=== PATIENT | male | born 1960 | race Caucasian/White ===

== ENCOUNTER → 2020-05-27 09:58 | Outpatient (BNVA) | payer BC, SELFPAY | PROVIDERS: PCP Internal Medicine; Referring Provider Internal Medicine; Visit Provider Internal Medicine Cardiovascular Disease | DX: Z76.89 Persons encountering health services in other specified circumstances (principal) ==

== ENCOUNTER → 2020-08-30 11:29 | Outpatient (BNVA) | payer BC, SELFPAY | PROVIDERS: PCP Internal Medicine; Visit Provider Nurse Practitioner Family ==

== ENCOUNTER 2020-12-19 14:48 | Outpatient (REF) | payer BC, SELFPAY ==
[2020-12-20 04:57] LABS: Follicle Stimulating Hormone 10.9 mIU/mL (1.6-8.0); Lutenizing Hormone 6.3 mIU/mL (1.5-9.3); Prolactin 5.7 ng/mL (2.0-18.0)
[2020-12-20 05:42] LABS: Sex Hormone Binding Globulin 30 nmol/L (22-77)
[2020-12-23 21:37] LABS: Estradiol Ultra Sensitive 27 pg/mL (< OR = 29)
[2021-01-09 11:17] LABS: Testosterone, Total 261 ng/dL (250-1100)
== END 2020-12-19 14:49 | disposition home or self-care (01) ==
LOC: HO.LAB 14:48
PROVIDERS: PCP Internal Medicine; Visit Provider Urology
DX: E29.1 Testicular hypofunction (principal)
CPT/HCPCS: 36415; 82670; 83001; 83002; 84146; 84270; 84403

== ENCOUNTER 2021-01-20 07:45 | Outpatient (REF) | payer BC, SELFPAY ==
[2021-01-25 10:31] LABS: Testosterone, Free 75.5 pg/mL (35.0-155.0); Testosterone, Total 503 ng/dL (250-1100)
== END 2021-01-20 07:46 | disposition home or self-care (01) ==
LOC: HO.HMGCLDS 07:45
PROVIDERS: PCP Internal Medicine; Visit Provider Urology
DX: E29.1 Testicular hypofunction (principal)
CPT/HCPCS: 36415; 84402; 84403

== ENCOUNTER → 2021-01-31 15:27 | Outpatient (BNVA) | payer BC, SELFPAY | PROVIDERS: PCP Internal Medicine; Visit Provider Urology ==

== ENCOUNTER → 2021-02-14 14:27 | Outpatient (BNVA) | payer BC, SELFPAY | PROVIDERS: PCP Internal Medicine; Visit Provider Urology | DX: E29.1 Testicular hypofunction (principal) | CPT/HCPCS: 96372 ==

== ENCOUNTER 2021-02-28 14:40 | Outpatient (REF) | payer BC, SELFPAY ==
--- NOTE | ~2021-02-28 | XR_ITS ---
EXAMINATION: XR SHOULDER, LEFT CLINICAL INFORMATION: Left shoulder pain COMPARISON: None TECHNIQUE: Three views of the left shoulder. FINDINGS: There is no evidence of acute fracture or dislocation of the left shoulder. Amorphous calcification is seen about the location of the supraspinatus tendon as well as in the subacromial region consistent with acute calcific tendinitis and bursitis. There is some mild degenerative spurring about the glenohumeral joint. XR/XR shoulder LT min 2V IMPRESSION: Calcific tendinitis and bursitis of the left shoulder.
[2021-02-28 16:22] LABS: MANUAL DIFF FLAG NO
[2021-02-28 16:27] LABS: Basophils Percent Auto 0.4 % (0-2); Eosinophils Absolute Auto 0.2 X10*3/uL (0.0-0.4); Eosinophils Percent Auto 2.8 % (0-4); Hematocrit 43.9 % (42-52); Hemoglobin 14.7 g/dl (14.0-18.0); Imm Gran Abs Auto 0.11 X10*3/uL (0.00-0.03); Imm Gran Pct Auto 1.4 % (0.0-0.4); Lymphocytes Absolute Auto 2.4 X10*3/uL (1.2-4.9); Lymphocytes Percent Auto 30.9 % (20-40); Mean Corpuscular HGB Conc 33.5 g/dl (31.0-36.0); Mean Corpuscular Hemoglobin 28.9 pg (27.0-33.0); Mean Corpuscular Volume 86.2 fL (80-98); Mean Platelet Volume 11.4 fL (9.4-12.4); Monocytes Absolute Auto 0.8 X10*3/uL (0.1-1.2); Monocytes Percent Auto 9.5 % (2-11); Neutrophils Absolute Auto 4.3 X10*3/uL (2.0-8.3); Platelet Count 162 X10*3/uL (160-400); Red Blood Count 5.09 X10*6/uL (4.60-5.80); Red Cell Distribution Width 12.9 % (11.0-16.0); White Blood Count 7.9 X10*3/uL (4.8-10.8)
[2021-02-28 16:49] LABS: Alanine Aminotransferase 34 U/L (0-40); Albumin Level 4.4 g/dL (3.5-5.0); Alkaline Phosphatase 89 U/L (39-117); Anion Gap 13 (12-20); Aspartate Amino Transferase 24 U/L (5-37); Bilirubin Total 0.7 mg/dL (0.0-1.0); Blood Urea Nitrogen 27 mg/dL (9-16); Calcium 9.6 mg/dL (8.4-10.2); Carbon Dioxide 26 mmol/L (22-29); Chloride 106 mmol/L (96-108); Estimated Glomerular Filt Rate > 60; Glucose Random 104 mg/dL (60-115); Potassium 4.2 mmol/L (3.3-5.1); Sodium 141 mmol/L (135-145); Total Protein 7.2 g/dL (6.5-8.0)
[2021-03-01 20:25] LABS: LDL Cholesterol Direct 100 mg/dL (<100)
== END 2021-02-28 14:41 | disposition home or self-care (01) ==
LOC: HO.HMGCX 14:40
PROVIDERS: PCP Internal Medicine; Visit Provider Internal Medicine
DX: Z00.01 Encounter for general adult medical examination with abnormal findings (principal); E66.09 Other obesity due to excess calories; M25.512 Pain in left shoulder
CPT/HCPCS: 36415; 73030; 80053; 83721; 85025

== ENCOUNTER → 2021-03-20 10:23 | Outpatient (BNVA) | payer BC, SELFPAY | PROVIDERS: Visit Provider Physician Assistant | DX: M75.32 Calcific tendinitis of left shoulder (principal) | CPT/HCPCS: 20610; J1040 ==

== ENCOUNTER → 2021-04-23 12:16 | Outpatient (BNVA) | payer BC, SELFPAY | PROVIDERS: Referring Provider Internal Medicine; Visit Provider Internal Medicine Cardiovascular Disease | DX: Z01.810 Encounter for preprocedural cardiovascular examination (principal); I25.10 Atherosclerotic heart disease of native coronary artery without angina pectoris; I10 Essential (primary) hypertension | CPT/HCPCS: 93005 ==

== ENCOUNTER 2021-05-01 10:27 | Outpatient (REF) | payer BC, SELFPAY ==
--- NOTE | ~2021-05-01 | MR_ITS ---
EXAMINATION: MRI SHOULDER WITHOUT CONTRAST, LEFT CLINICAL INFORMATION: Injury of muscle. Patient reports left shoulder pain. COMPARISON: None. X-ray of the left shoulder 02/28/2021. TECHNIQUE: MRI of the left shoulder was performed on a high-field 1.5 [place] MRI scanner. FINDINGS: ROTATOR CUFF: Supraspinatus: There is heterogeneous abnormal signal along the bursal and intrasubstance portion of the anterior third of the supraspinatus tendon. There are areas of hypointense signal on T1 and T2 as well as areas of hypointense T1 and hyperintense T2-weighted sequence. There may be some concomitant cystic change present along this portion of the tendon accounting for the increased T2 signal. This extends from the musculotendinous junction to the distal insertion. This area corresponds to the area of calcific density noted on radiographs. Taken together these findings are compatible with calcific tendinitis perhaps with possible concomitant bursal-sided superficial tearing along the distal 1.5 cm of the tendon anteriorly. No transverse defect or tendon retraction. Minimal edema extending into the muscle. Remaining rotator cuff muscles and tendons are normal. BICEPS TENDON: Normal. 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 Minimal concavity of the undersurface of the acromion without subacromial spur. BURSA: Trace fluid in subacromial-subdeltoid bursa potentially with some areas of low signal indicative of calcium deposition in the bursa as well as the tendon compatible with mild bursitis bursitis. LABRUM/CAPSULE: Normal. GLENOHUMERAL JOINT: Normal. MR/MR shoulder LT wo con IMPRESSION: Abnormality of the supraspinatus compatible with calcific tendinitis perhaps with some concomitant small areas of partial bursal side tearing with resultant intratendinous cystic change. No full-thickness defect or tendon retraction. Mild subacromial-subdeltoid bursitis and calcific bursitis. Mild arthrosis of the acromioclavicular joint.
== END 2021-05-01 10:28 | disposition home or self-care (01) ==
LOC: HO.MRI 10:27
PROVIDERS: Visit Provider Physician Assistant
DX: S46.002A Unspecified injury of muscle(s) and tendon(s) of the rotator cuff of left shoulder, initial encounter (principal)
CPT/HCPCS: 73221

== ENCOUNTER → 2021-05-08 13:10 | Outpatient (BNVA) | payer BC, SELFPAY | PROVIDERS: PCP Internal Medicine; Visit Provider Physician Assistant ==

== ENCOUNTER 2021-06-30 09:00 | Outpatient (RCR) | payer BC, SELFPAY ==
[2021-06-02 09:01] VITALS: BP 155/90
--- NOTE | 2021-06-02 09:44 | MHC.PT.EP ---
[facility] [place] [facility] [place] [facility] [address] [place] [address] [phone] F: [phone] F: [phone] F: [phone] F: [phone] Physical Therapy Plan of Care Date of Evaluation: Date of Surgery: Diagnosis: calcific tendonitis L shoulder Assessment: 60 y/o RHD M referred to PT with L shoulder calcific tendonitis. His pain is improving however he continues to have pain and difficulty with reaching overhead and lifting. His job requires heavy lifting. Examination shows decreased L shoulder A/PROM (especially flexion/ abduction/ IR), decreased strength of scapular stabilizers, increased tissue tension of B pecs, and impaired postural awareness. Recommend PT 2x/week for 5 weeks to address impairments, implement HEP, and optimize functional mobility. He can only come 1x/week. Frequency and Duration: The patient will be seen 1x/week for 5 weeks Short Term Goals: 3 weeks 1. I with HEP 2. Improve L shoulder IR to 40 degrees Senior Care Goals: 5 weeks 1. I with HEP and self management of sx 2. Improve mid trap strength to 4/5 B to faciliate scapular control with overhead motion 3. Pt will be able to reach overhead without pain 5/5x Treatment Plan: Modalities to reduce pain, spasms and effusion. Manual therapy to restore motion and function. Therapeutic exercise to improve strength and flexibility. Neuromuscular re-education for posture and balance. Therapeutic activities to return to functional activities of daily living. Electronically signed by: Jennyfer Gayle PT Please sign and return to therapist. Thank you for your referral.
--- NOTE | 2021-08-08 07:37 | MHC.PT.DC ---
[facility] [place] [facility] [place] [facility] [place] [facility] [address] [place] [address] [phone] F: [phone] F: [phone] F: [phone] F: [phone] Physical Therapy Discharge Report Diagnosis: calcific tendonitis L shoulder Date of Surgery: Date of Evaluation: 06/02/21 Date of Discharge: 08/08/21 Treatments to Date: 5 Cancellations to Date: 0 No Shows to Date: 0 Discharge Status: Improved Function Independent with HEP Visit Non-compliance Discharge Summary: He did not f/u with final visit. At time of last visit Pt reports next visit will be his last visit and he would like recommendations on a gym. Discussed different gym memberships as well as HEP compliance. He states he does not do the exercises at home due to too busy. Re-educated pt on importance of corrective exercise program at home to make gains and redistributed bands. Less fatigue reported with ER today. Electronically signed by: Jennyfer Gayle PT Please sign and return to therapist. Thank you for your referral.
== END 2021-08-08 07:37 | disposition home or self-care (01) ==
LOC: HO.PTCHIC 09:00
PROVIDERS: PCP Internal Medicine; Visit Provider Physician Assistant
DX: M75.32 Calcific tendinitis of left shoulder (principal)
CPT/HCPCS: 97035; 97110; 97161

== ENCOUNTER 2021-08-11 07:57 | Outpatient (REF) | payer BC, SELFPAY ==
[2021-08-11 11:45] LABS: MANUAL DIFF FLAG NO
[2021-08-11 11:56] LABS: Basophils Percent Auto 0.4 % (0-2); Eosinophils Absolute Auto 0.1 X10*3/uL (0.0-0.4); Eosinophils Percent Auto 1.8 % (0-4); Hematocrit 53.6 % (42.0-52.0); Hemoglobin 17.1 g/dl (14.0-18.0); Imm Gran Abs Auto 0.03 X10*3/uL (0.00-0.03); Imm Gran Pct Auto 0.4 % (0.0-0.4); Lymphocytes Absolute Auto 1.7 X10*3/uL (1.2-4.9); Lymphocytes Percent Auto 24.2 % (20-40); Mean Corpuscular HGB Conc 31.9 g/dl (31.0-36.0); Mean Corpuscular Hemoglobin 27.1 pg (27.0-33.0); Mean Corpuscular Volume 85.1 fL (80.0-98.0); Mean Platelet Volume 11.7 fL (9.4-12.4); Monocytes Absolute Auto 0.6 X10*3/uL (0.1-1.2); Monocytes Percent Auto 8.4 % (2-11); Neutrophils Absolute Auto 4.6 x10*3/uL (2.0-8.3); Neutrophils Percent Auto 64.8 % (45-73); Platelet Count 186 X10*3/uL (160-400); Red Cell Distribution Width 13.9 % (11.0-16.0); White Blood Count 7.1 X10*3/uL (4.8-10.8)
[2021-08-11 12:20] LABS: Prostate Specific Antigen 3.22 ng/mL (<0.05-4.0)
[2021-08-15 11:47] LABS: Testosterone, Total 870 ng/dL (250-1100)
== END 2021-08-11 07:58 | disposition home or self-care (01) ==
LOC: HO.HMGCLDS 07:57
PROVIDERS: PCP Internal Medicine; Visit Provider Urology
DX: Z12.5 Encounter for screening for malignant neoplasm of prostate (principal); E29.1 Testicular hypofunction
CPT/HCPCS: 36415; 84153; 84403; 85025

== ENCOUNTER → 2021-08-22 10:19 | Outpatient (BNVA) | payer BC, SELFPAY | PROVIDERS: PCP Internal Medicine; Visit Provider Urology ==

== ENCOUNTER → 2021-09-03 09:18 | Outpatient (BNVA) | payer BC, SELFPAY | PROVIDERS: PCP Internal Medicine; Referring Provider Internal Medicine; Visit Provider Internal Medicine Cardiovascular Disease ==

== ENCOUNTER 2022-01-12 10:41 | Emergency (ER) | payer BC, SELFPAY ==
--- NOTE | 2022-01-12 | ECG_ITS ---
Test Reason : CHEST PAIN Blood Pressure : / mmHG Vent. Rate : 104 BPM Atrial Rate : 104 BPM P-R Int : 138 ms QRS Dur : 104 ms QT Int : 346 ms P-R-T Axes : 062 -34 076 degrees QTc Int : 454 ms Sinus tachycardia Left axis deviation Minimal voltage criteria for LVH, may be normal variant ( [place] product ) Nonspecific ST abnormality Abnormal ECG No previous ECGs available Referred By: Generic ED Physician Electronically Signed By:Capo Bautista
--- NOTE | ~2022-01-12 | XR_ITS ---
EXAMINATION: XR CHEST CLINICAL INFORMATION: Left-sided chest pain, shortness of breath COMPARISON: Chest and ribs 05/15/2019 TECHNIQUE: 2 views of the chest were obtained. FINDINGS: No pneumothorax, pleural reaction, or effusion. No hyperinflation. There is mild coarsening of the bronchiolar markings which may be related to bronchitis. There is no lobar or segmental airspace consolidation, or groundglass opacity. Costophrenic sulci are clear. The cardiopericardial silhouette is within limits of normal. Vascularity within normal. No visible acute bony abnormality. There are multilevel degenerative changes thoracic spine. XR/XR chest 2V IMPRESSION: -Mild coarsening bronchiolar markings which may be related to bronchitis. -No hyperinflation, airspace consolidation, or groundglass opacity. -Cardiopericardial silhouette is within limits of normal. Vascularity within normal.
[2022-01-12 10:44] VITALS: BP 164/99; PULSE 108; RESP 20; TEMP 36.7; O2SAT 97; BMI 34.9
[2022-01-12 11:00] LABS: MANUAL DIFF FLAG NO
[2022-01-12 11:02] LABS: Basophils Percent Auto 0.3 % (0-2); Eosinophils Absolute Auto 0.1 X10*3/uL (0.0-0.4); Eosinophils Percent Auto 1.3 % (0-4); Hemoglobin 16.4 g/dl (14.0-18.0); Imm Gran Abs Auto 0.09 X10*3/uL (0.00-0.03); Imm Gran Pct Auto 0.9 % (0.0-0.4); Lymphocytes Percent Auto 29.4 % (20-40); Mean Corpuscular HGB Conc 30.9 g/dl (31.0-36.0); Mean Corpuscular Hemoglobin 23.7 pg (27.0-33.0); Mean Corpuscular Volume 76.7 fL (80.0-98.0); Mean Platelet Volume 10.7 fL (9.4-12.4); Monocytes Absolute Auto 0.9 X10*3/uL (0.1-1.2); Monocytes Percent Auto 8.9 % (2-11); Neutrophils Absolute Auto 6.1 x10*3/uL (2.0-8.3); Neutrophils Percent Auto 59.2 % (45-73); Platelet Count 205 X10*3/uL (160-400); Red Blood Count 6.91 X10*6/uL (4.60-5.80); Red Cell Distribution Width 17.6 % (11.0-16.0); White Blood Count 10.2 X10*3/uL (4.8-10.8)
[2022-01-12 11:18] LABS: Alanine Aminotransferase 34 U/L (0-40); Albumin Level 4.5 g/dL (3.5-5.0); Alkaline Phosphatase 72 U/L (39-117); Anion Gap 12 (12-20); Aspartate Amino Transferase 33 U/L (5-37); Bilirubin Total 1.1 mg/dL (0.0-1.0); Blood Urea Nitrogen 26 mg/dL (9-16); COVID-19 Test Negative (Negative); Calcium 9.2 mg/dL (8.4-10.2); Carbon Dioxide 25 mmol/L (22-29); Chloride 106 mmol/L (96-108); Creatinine Clr Calc Pharmacy 74.4; Estimated Glomerular Filt Rate 59; Glucose Random 126 mg/dL (60-115); IDNOW Serial# 16C4AD1C; Potassium 3.9 mmol/L (3.3-5.1); Sodium 139 mmol/L (135-145); Total Protein 7.6 g/dL (6.5-8.0)
[2022-01-12 11:28] LABS: Troponin-I High Sensitivity 3.5 ng/L (<3.5-35.0)
[2022-01-12 12:21] VITALS: BP 131/71; PULSE 95
[2022-01-12] MEDS: Nitroglycerin 2 % Oint 1 GM Packet 0.5 INCH TRANSDERMA (12:21)
[2022-01-12] MEDS: Morphine Sulfate 4 MG/ML CARTRIDGE IVPUSH ×2 (12:21→15:57)
[2022-01-12 12:30] VITALS: BP 131/78; PULSE 100; RESP 20; TEMP 36.8; O2SAT 98
--- NOTE | 2022-01-12 12:31 | ED_ITS ---
HPI - Chest Pain General Chief Complaint: Chest Pain Stated Complaint: sob chest pain Time Seen by Provider: 01/12/22 11:36 Source: patient Mode of arrival: ambulatory Limitations: no limitations History of Present Illness HPI narrative: Patient presents emergency department for evaluation of chest pain. Reports t hat the chest pain began with very sudden onset about 15 minutes prior to arrival to the emergency department, difficult to describe but it was felt substernal radiating into his back, and pain felt in to his jaw line and beneath his tongue. Reports that this feels similar to a prior heart attack he has had in the past. Does report associated shortness of breath. He denies fevers, chills, dizziness, lightheadedness, headache, vision changes, neck pain, stiffness, dyspnea on exertion, nausea vomiting, abdominal pain weakness, numbness tingling of his extremities. MD complaint: chest pain and chest heaviness Pertinent past history: coronary artery disease, prior NM and [employer] Onset (ago): hour(s) Timing of current episode: constant Prior episodes: Yes Onset: during rest Pain location: substernal Pain radiation: back and jaw/teeth Severity: severe Pain scale (0-10): 9 Related Data Home Medications Medication Instructions Recorded Confirmed aspirin 81 mg tablet,delayed 81 mg PO DAILY 05/27/20 11/20/21 release (Adult Low Dose Aspirin) cholecalciferol (vitamin D3) 25 25 mcg PO DAILY 05/27/20 11/20/21 mcg (1,000 unit) capsule nitroglycerin 0.4 mg sublingual 0.4 mg sublingual Q5M PRN 05/27/20 11/20/21 tablet ibuprofen 600 mg tablet 400 mg PO Q6H PRN pain 09/03/21 11/20/21 Previous Rx's Medication Instructions Recorded atorvastatin 80 mg tablet 80 mg PO DAILY 30 days #30 tabs 12/20/20 clopidogrel 75 mg tablet 75 mg PO DAILY #90 tabs 03/11/21 metoprolol succinate 50 mg 50 mg PO DAILY 90 days #90 tabs 05/02/21 tablet,extended release 24 hr tadalafil 5 mg tablet 5 mg PO DAILY sexual activity 90 08/22/21 days #90 tabs testosterone cypionate 200 mg/mL 80 mg (0.4 mL) subcut QWEEK 4 08/22/21 intramuscular oil weeks #4 mL (Depo-Testosterone) cyclobenzaprine 10 mg tablet 10 mg PO BEDTIME #14 tabs 09/15/21 amoxicillin 875 mg-potassium 1 tab PO BID PRN ear infection 7 11/20/21 clavulanate 125 mg tablet days #14 tabs meloxicam 15 mg tablet 15 mg PO DAILY #14 tabs 12/16/21 trazodone 100 mg tablet 100 mg PO BEDTIME PRN sleep 90 12/16/21 days #14 tabs amlodipine 2.5 mg tablet 2.5 mg PO DAILY #90 tabs 12/30/21 Allergies Allergy/AdvReac Type Severity Reaction Status Date / Time No Known Allergies Allergy Verified 12/16/21 09:48 Review of Systems Review of Systems: Constitutional : No Weight loss, No Fever, No Chills ENT/Mouth :? No sore throat, No Rhinorrhea Eyes: No Eye Pain, No Swelling Cardiovascular : pos Chest Pain, pos SOB, no Dyspnea on Exertion, No Orthopnea, No Edema, No Palpitations Respiratory : No Cough, No Sputum Gastrointestinal : pos Nausea, No Vomiting, No Diarrhea, No abdominal Pain, No Hematochezia, No Melena Genitourinary : No Dysuria, No Urinary Frequency Musculoskeletal : No joint pain, No Myalgias, No Joint Swelling Skin : No Skin Lesions, No rash Neuro : No Weakness, No Numbness, No Dizziness, No Headache Psych : No Anxiety/Panic, No Depression Heme/Lymph: No Bruising, No Lymphadenopathy Endocrine : No Polyuria, No Polydipsia Yes all other systems are reviewed and are negative PMFSH Past Medical History Attestation statement: The following information was validated with the patient. Source: old records reviewed Medical History CAD (coronary artery disease) HLD (hyperlipidemia) HTN (hypertension) Low testosterone in male Surgical History Hx of cardiac cath Stented coronary artery (~05/2019) Family History Family History Mother Cancer Diabetes HTN (hypertension) Father HTN (hypertension) Social History Social History Housing: House Alcohol intake: never Patient Tobacco Use Status: Never used Tobacco Second Hand Smoke Exposure: Yes (as a child) Advance Directives: No Advance Directives Information Provided: No Current occupational status: employed Current occupation: [employer] Physical Exam Vital Signs: Vital Signs: Last Vital Signs Temp 98.6 F 01/12/22 17:26 Pulse 88 01/12/22 17:26 Resp 18 01/12/22 17:26 BP 129/77 01/12/22 17:26 Pulse Ox 94 01/12/22 17:26 O2 Del Method 01/12/22 17:26 BMI result Body Mass Index 37.0 Vital signs have been reviewed as normal and appeared to be correct. Blood pressure normal.? Heart rate normal.? Respiration rate normal. Temperature normal.? Oxygen saturation normal. Appearance: Alert.?Oriented to person, place and time. No acute distress.?Normal affect. Eyes: Pupils equal, round and reactive to light.? ENT: Pharynx normal.?? Neck: Normal inspection.? Neck supple.?? CVS: Heart sounds normal. Normal heart rate and rhythm.? Pulses normal, equal bilaterally? Respiratory: No respiratory distress.? Lung sounds clear to auscultation bilaterally?? Abdomen: Soft and non-tender. Normoactive bowel sounds. No pulsatile mass.?? Skin: Skin warm and dry.? Normal skin color.? No diaphoresis? Extremities: No lower extremity edema.? No calf ttp? Neuro: Moves all extremities spontaneously. Sensation intact bilaterally. CN II- XII intact. No focal neuro deficits. Ambulates with normal steady gait. Course Course Course Narrative: Patient is a 61-year-old male with a past medical history of depression, obesity, hyperlipidemia, hypertension, coronary artery disease with PCI of the RCA, PCI of left circumflex OM, and LAD being managed medically. He presents for acute onset of chest pain this morning while at rest. Patient states he is already taking Plavix and 324 aspirin. Given acute pain, treat with nitropaste 0.5 in, and morphine 4 mg IV. Will obtain CBC to evaluate for leukocytosis/ anemia, CMP to evaluate for abnormal electrolytes /abnormal renal function/ abnormal hepatic function, EKG and troponin to evaluate for ischemia/ACS. Chest x-ray to evaluate for consolidation/ infiltrate/ mass/ pulmonary con gestion. Reevaluation(s) Reevaluation #1: Initial labs are overall unremarkable. Troponin <3.5, EKG reveals sinus tachycardia, LVH, left axis deviation, 1mm ST elevation in III and aVF, ST depression leads V1-V5, but no prior EKGs available for review, will obtain delta troponin. Time: 12:30 Reevaluation #2: Pain is currently 5/10, reports in improvement but still present. Delta troponin pending at this time. Will order additional morphine 4 mg IV for pain management. Chest x-ray with findings consistent with the possible mild bronchitis come patient however with no recent upper respiratory symptoms cough, or congestion. Time: 13:37 Reevaluation #3: Critical troponin, 2189.1, continues to have chest pain 4/10 at this time, feeling hot, mildly diaphoretic. Repeat EKG shows new T-wave inversions in inferior leads, ST depression of of anterior leads and ST elevation of inferior leads has resolved. Consulted with Cardiology Dr. Bautista recommends heparin drip,nitro, and additional plavix 300mg at this time, discussed findings with patient, plan for possible transfer to [facility] Time: 15:17 Additional Reevaluation(s): 1550: Spoke with Cardiology Dr. Bautista, given persistent active chest pain, patient to be started on a nitro drip at 33 mcg at this time, planning for transfer to [facility] critical care unit, accepting physician Dr. Morales. The patient had earlier stated he had not taken Tadalafil in a few days. When asked again at this time, he reports that he did take it this morning with his morning medications. Concern for concomitant use with nitro. Discussed this with Dr. Bautista, who now advises against nitro drip at this time. 1650: Difficulty obtaining ACLS transfer to [facility] at this time. Working to coordinate transfer. Metoprolol 2.5 mg IV being administered for heart rate greater than 70. Chest pain has almost completely resolved, sti ll remains present but very subtle, reporting 2/10 midline upper back pain MDM - Chest Pain Medical Records Data Attestation: I reviewed the patient's medical records. Lab Data Attestation: I reviewed the patient's lab results. Result diagrams: 01/12/22 10:56 01/12/22 10:56 Labs: Lab Results 07/18/22 07/18/22 07/18/22 Range/Units 10:56 10:56 10:56 WBC 10.2 (4.8-10.8) X10*3/uL RBC 6.91 H (4.60-5.80) X10*6/uL Hgb 16.4 (14.0-18.0) g/dl Hct 53.0 H (42.0-52.0) % MCV 76.7 L (80.0-98.0) fL MCH 23.7 L (27.0-33.0) pg MCHC 30.9 L (31.0-36.0) g/dl RDW 17.6 H (11.0-16.0) % Plt Count 205 (160-400) X10*3/uL MPV 10.7 (9.4-12.4) fL Immature Gran % (Auto) 0.9 H (0.0-0.4) % Neut % (Auto) 59.2 (45-73) % Lymph % (Auto) 29.4 (20-40) % [place] % (Auto) 8.9 (2-11) % Eos % (Auto) 1.3 (0-4) % Baso % (Auto) 0.3 (0-2) % Lymph # (Auto) 3.0 (1.2-4.9) X10*3/uL [place] # (Auto) 0.9 (0.1-1.2) X10*3/uL Eos # (Auto) 0.1 (0.0-0.4) X10*3/uL Baso # (Auto) 0.0 (0.0-0.2) X10*3/uL Abs Immat Gran (auto) 0.09 H (0.00-0.03) X10*3/uL Absolute Neuts (auto) 6.1 (2.0-8.3) x10*3/uL Absolute Nucleated RBC 0.000 (0.0-0.012) X10*3/uL Nucleated RBC % (auto) 0.0 (0.0-0.2) /100WBC APTT (24.1-38.0) SEC Sodium 139 (135-145) mmol/L Potassium 3.9 (3.3-5.1) mmol/L Chloride 106 (96-108) mmol/L Carbon Dioxide 25 (22-29) mmol/L Anion Gap 12 (12-20) BUN 26 H (9-16) mg/dL Creatinine 1.25 (0.5-1.4) mg/dL Estim Creat Clear Calc 74.4 Estimated GFR 59 Random Glucose 126 H (60-115) mg/dL Calcium 9.2 (8.4-10.2) mg/dL Total Bilirubin 1.1 H (0.0-1.0) mg/dL AST 33 (5-37) U/L ALT 34 (0-40) U/L Alkaline Phosphatase 72 (39-117) U/L Troponin I High Sens 3.5 (<3.5-35.0) ng/L Total Protein 7.6 (6.5-8.0) g/dL Albumin 4.5 (3.5-5.0) g/dL COVID-19 (BEBE) (Negative) COVID-19 Clin Com 01/12/22 01/12/22 01/12/22 Range/Units 10:56 14:44 15:56 WBC (4.8-10.8) X10*3/uL RBC (4.60-5.80) X10*6/uL Hgb (14.0-18.0) g/dl Hct (42.0-52.0) % MCV (80.0-98.0) fL MCH (27.0-33.0) pg MCHC (31.0-36.0) g/dl RDW (11.0-16.0) % Plt Count (160-400) X10*3/uL MPV (9.4-12.4) fL Immature Gran % (Auto) (0.0-0.4) % Neut % (Auto) (45-73) % Lymph % (Auto) (20-40) % [place] % (Auto) (2-11) % Eos % (Auto) (0-4) % Baso % (Auto) (0-2) % Lymph # (Auto) (1.2-4.9) X10*3/uL [place] # (Auto) (0.1-1.2) X10*3/uL Eos # (Auto) (0.0-0.4) X10*3/uL Baso # (Auto) (0.0-0.2) X10*3/uL Abs Immat Gran (auto) (0.00-0.03) X10*3/uL Absolute Neuts (auto) (2.0-8.3) x10*3/uL Absolute Nucleated RBC (0.0-0.012) X10*3/uL Nucleated RBC % (auto) (0.0-0.2) /100WBC APTT 35.1 (24.1-38.0) SEC Sodium (135-145) mmol/L Potassium (3.3-5.1) mmol/L Chloride (96-108) mmol/L Carbon Dioxide (22-29) mmol/L Anion Gap (12-20) BUN (9-16) mg/dL Creatinine (0.5-1.4) mg/dL Estim Creat Clear Calc Estimated GFR Random Glucose (60-115) mg/dL Calcium (8.4-10.2) mg/dL Total Bilirubin (0.0-1.0) mg/dL AST (5-37) U/L ALT (0-40) U/L Alkaline Phosphatase (39-117) U/L Troponin I High Sens 2189.1 H* D (<3.5-35.0) ng/L Total Protein (6.5-8.0) g/dL Albumin (3.5-5.0) g/dL COVID-19 (BEBE) Negative (Negative) COVID-19 Clin Com See Note Imaging Data Chest x-ray: Radiologist's impression: XR/XR chest 2V IMPRESSION: -Mild coarsening bronchiolar markings which may be related to bronchitis. -No hyperinflation, airspace consolidation, or groundglass opacity. -Cardiopericardial silhouette is within limits of normal. Vascularity within normal. ECG Data ECG #1: Attestation: I personally reviewed and interpreted this ECG as follows: ECG interpretation date: 01/12/22 Prior ECG tracings: not available for review Interpretation: Rate: Sinus tachycardia Rhythm:? 104 Normal P waves.? Normal HARRIET.?? Normal QRS complex.?? ST T wave :??1mm ST elevation in III, and aVF, ST depression V1-V5 qTC: 454 prior studies:? None available for review The study has been interpreted contemporaneously by me. Discharge Plan Discharge Clinical Impression: Acute non-ST elevation myocardial infarction (NSTEMI) Patient Disposition: Xfer [facility] Transfer Details: [facility], critical care unit Prescriptions: No Action atorvastatin 80 mg tablet 80 mg PO DAILY 30 Days Qty: 30 1RF clopidogrel 75 mg tablet 75 mg PO DAILY Qty: 90 3RF metoprolol succinate 50 mg tablet extended release 24 hr 50 mg PO DAILY 90 Days Qty: 90 3RF amlodipine 2.5 mg tablet 2.5 mg PO DAILY Qty: 90 1RF cyclobenzaprine 10 mg tablet 10 mg PO BEDTIME Qty: 14 0RF amoxicillin-pot clavulanate 875-125 mg tablet 1 tab PO BID PRN (Reason: ear infection) 7 Days Qty: 14 0RF trazodone 100 mg tablet 100 mg PO BEDTIME PRN (Reason: sleep) 90 Days Qty: 14 0RF meloxicam 15 mg tablet 15 mg PO DAILY Qty: 14 0RF nitroglycerin 0.4 mg tablet, sublingual 0.4 mg sublingual Q5M PRN Rx Instructions: do not exceed 3 doses per episode aspirin [Adult Low Dose Aspirin] 81 mg tablet,delayed release (DR/EC) 81 mg PO DAILY cholecalciferol (vitamin D3) 25 mcg (1,000 unit) capsule 25 mcg PO DAILY tadalafil 5 mg tablet 5 mg PO DAILY 90 Days Qty: 90 1RF testosterone cypionate [Depo-Testosterone] 200 mg/mL oil 80 mg subcut QWEEK 28 Days Qty: 4 5RF ibuprofen 600 mg tablet 400 mg PO Q6H PRN (Reason: pain)
--- NOTE | 2022-01-12 12:35 | PC.NURSE ---
patient A/o x4 . pearrla . skin pink warm and dry . heart rate regular at 100 -102 beats . c/o 10/10 chest pressure pain that started while patient was reaching up shaving this morning . reports history of cardiac bypass surgery done . abdomin soft non tender . positive bowel sounds in all quadrants . IV placed in left forearm and medicated as ordered . patient aware of plan of care .
[2022-01-12 14:29] VITALS: BP 134/76; PULSE 90; RESP 20; TEMP 36.7; O2SAT 96
--- NOTE | 2022-01-12 15:23 | ECG_ITS ---
Test Reason : repeat Blood Pressure : / mmHG Vent. Rate : 088 BPM Atrial Rate : 088 BPM P-R Int : 138 ms QRS Dur : 110 ms QT Int : 372 ms P-R-T Axes : 060 -45 -43 degrees QTc Int : 450 ms Normal sinus rhythm Left anterior fascicular block Minimal voltage criteria for LVH, may be normal variant ( [place] product ) Cannot rule out Inferior infarct , age undetermined Abnormal ECG When compared with ECG of 12-JAN-2022 10:37, ST no longer elevated in Inferior leads ST no longer depressed in Anterior leads T wave inversion now evident in Inferior leads Nonspecific T wave abnormality, worse in Lateral leads Referred By: Alyse Hanley Electronically Signed By:Capo Bautista
[2022-01-12 15:45] VITALS: BMI 37.0
--- NOTE | 2022-01-12 16:03 | PC.NURSE ---
@ 1600 CALL ECEIVED FROM [facility] PT TX LINE WITH ROOM ASSIGNMENT MASS MUTUAL 3, ROOM 9 RN TO RN: [phone] MICHELL RAJAN
[2022-01-12 16:10] LABS: Partial Thromboplastin Time 35.1 SEC (24.1-38.0)
[2022-01-12] MEDS: Heparin Sodium,Porcine 5,000 UNIT/ML VIAL 4000 UNIT IVPUSH (16:20)
[2022-01-12] MEDS: Heparin Sodium,Porcine/1/2NS 25,000 UNIT/250 ML IV.SOLN 15.46 UNIT IVCONT (16:21)
[2022-01-12] MEDS: Metoprolol Tartrate 5 MG/5 ML VIAL 2.5 MG IVPUSH (17:02)
[2022-01-12 17:26] VITALS: BP 129/77; PULSE 88; RESP 18; TEMP 37; O2SAT 94
--- NOTE | 2022-01-12 18:20 | PC.NURSE ---
RN to RN given to Eli at [facility] .
== END 2022-01-12 19:20 | disposition short-term general hospital (02) ==
PROVIDERS: Nurse Practitioner Family; Emergency Provider Emergency Medicine; PCP Internal Medicine
DX: I21.4 Non-ST elevation (NSTEMI) myocardial infarction (principal); R07.89 Other chest pain; R06.02 Shortness of breath; Z20.822 Contact with and (suspected) exposure to COVID-19; Z79.899 Other long term (current) drug therapy
CPT/HCPCS: 36415; 71046; 80053; 84484; 85025; 85730; 87635; 93005; 96365; 96366; 96375; 96376; 99285; J2270

== ENCOUNTER → 2022-02-06 14:48 | Outpatient (REF) | payer BC, SELFPAY ==
--- NOTE | 2022-02-06 14:51 | CA_ITS ---
Transthoracic Echocardiogram Patient (Last, First, Middle): Cory Lopez A Gender: Male Date of : 1960 Age: 61 Procedure Date: 02/06/2022 Procedure Type: Transthoracic Echocardiogram Location: OP Height: 175.26 cm Weight: 106.14 kg BSA: 2.21 m2 Heart Rate: 76 bpm BP: 117 / 62 mmHg Supervisor Estimator And Drafter: SB Referring MD: Wendy Aragon [facility] Symptoms: I42.9 - Cardiomyopathy, unspecified Study Quality: Adequate ECG Rhythm: Sinus Conclusions: - The left ventricular systolic function is low normal. The visually estimated ejection fraction is between 50-55%. - There is evidence of regional wall motion abnormalities. - There is moderately decreased right ventricular systolic function. Findings Left Ventricle Mildly increased left ventricular cavity size. There is mildly increased left ventricular wall thickness. The left ventricular systolic function is low normal. The visually estimated ejection fraction is between 50-55%. There is evidence of regional wall motion abnormalities. Diastolic function is normal for age. LV peak GLS -14.6%. Wall Motion Rest Echo Findings The inferolateral wall is hypokinetic. The basal inferior segment is akinetic. Right Ventricle Mildly increased right ventricular cavity size. There is moderately decreased right ventricular systolic function. Prior Study Comparison Changes noted compared to prior study dated: 05/09/2019. Evidence of wall motion abnormalities. Measurements 2D Linear Measurements IVSd: 1.11 0.6-0.9/0.6-1.0 cm LVIDd: 5.89 3.9-5.3/4.2-5.9 cm LVIDd Index: 2.67 2.4-3.2/2.2-3.1 cm/m2 LVIDs: 4.30 2.0-3.6 cm LVPWd: 1.03 0.7-1.1 cm LV Mass: 325.98 67-162/88-224 g LV Mass Index: 147.50 43-95/49-115 g/m2 LVOT Diam: 2.10 3.0+(-)1.3 cm 2D Systolic Function EF 4C: 48.90 >55% EF 2C: 57.60 >55% EF BiP: 55.20 >55% Mitral Valve MV Pk E: 0.76 MV PK A: 0.73 MV Decel Time: 158.00 E/A: 1.00 E'Lateral: 11.40 E'Medial: 3.98 E/E' Med: 19.10 E/E' Lat: 6.70 PHT: 46.00 MVA PHT: 4.78 Decel [place]ay: 4.81 LVOT LVOT Pk Emerson: 1.15 LVOT Mn Emerson: 0.82 LVOT VTI: 0.21 LVOT Pk Grad: 5.00 LVOT Mn Grad: 3.00 LVOT Diam: 2.10 LVOT Area: 3.46 Diastolic Function MV Pk E: 0.76 MV Pk A: 0.73 E/A: 1.00 E'Medial: 3.98 E/E' Med: 19.10 E' Laterial: 11.40 E/E' Lat: 6.70 Right Ventricle TAPSE (mm): 12.20 TVS' Emerson: 11.50 Tricuspid Valve RA Press: 3.00 Updated in Other Vendor System with Status of Final Rex Aragon MD electronically signed on 02/07/2022 1:23:43 PM with status of Final
== END ==
LOC: HO.CARD 14:48
PROVIDERS: PCP Internal Medicine; Visit Provider Nurse Practitioner Family
DX: I42.9 Cardiomyopathy, unspecified (principal); I21.4 Non-ST elevation (NSTEMI) myocardial infarction
CPT/HCPCS: 93308; 93356

== ENCOUNTER 2022-03-03 08:30 | Outpatient (REF) | payer BC, SELFPAY ==
[2022-03-03 11:35] LABS: Hemoglobin 17.4 g/dl (14.0-18.0); Mean Corpuscular HGB Conc 30.9 g/dl (31.0-36.0); Mean Corpuscular Hemoglobin 24.1 pg (27.0-33.0); Mean Corpuscular Volume 78.2 fL (80.0-98.0); Mean Platelet Volume 11.8 fL (9.4-12.4); Platelet Count 181 X10*3/uL (160-400); Red Blood Count 7.21 X10*6/uL (4.60-5.80); Red Cell Distribution Width 18.3 % (11.0-16.0); White Blood Count 8.4 X10*3/uL (4.8-10.8)
[2022-03-03 11:38] LABS: Hematocrit 56.4 % (42.0-52.0)
[2022-03-03 12:15] LABS: Prostate Specific Antigen 1.97 ng/mL (<0.05-4.0)
[2022-03-07 13:47] LABS: Testosterone, Total 755 ng/dL (250-1100)
== END 2022-03-03 08:31 | disposition home or self-care (01) ==
LOC: HO.HMGCLDS 08:30
PROVIDERS: PCP Internal Medicine; Visit Provider Urology
DX: Z12.5 Encounter for screening for malignant neoplasm of prostate (principal); E29.1 Testicular hypofunction
CPT/HCPCS: 36415; 84153; 84403; 85027

== ENCOUNTER → 2022-05-25 08:50 | Outpatient (REF) | payer BC, SELFPAY ==
--- NOTE | 2022-05-25 08:53 | CA_ITS ---
Acquisition Time: 2022-05-25 09:05:05 Total Exercise Time: 00:09:00 Test Indications: SOB Medications: SEE CHART Protocol: SYLVIE Max HR: 139 BPM 86% of Pred: 161 BPM Max BP: 152/092 mmHG Max Work Load: 10.1 METS Exercise stress test with exercise 9 min of Sylvie protocol, reaching 85% MPHR, with mild sob, no chest discomfort, with isolated PACs and PVCs, with normotensive response to exercise, without EKG changes meeting criteria for ischemia. Test reviewed with Dr Bautista Referred By: Wendy Aragon Overread By: WENDY ARAGON
== END ==
LOC: HO.CARD 08:50
PROVIDERS: PCP Internal Medicine; Visit Provider Nurse Practitioner Family
DX: I25.10 Atherosclerotic heart disease of native coronary artery without angina pectoris (principal); R53.83 Other fatigue; I42.9 Cardiomyopathy, unspecified
CPT/HCPCS: 93017

== ENCOUNTER 2022-06-09 08:38 | Outpatient (REF) | payer BC, SELFPAY ==
[2022-06-09 12:24] LABS: Hematocrit 55.8 % (42.0-52.0)
[2022-06-15 13:38] LABS: Testosterone, Total 626 ng/dL (250-1100)
== END 2022-06-09 08:39 | disposition home or self-care (01) ==
LOC: HO.HMGCLDS 08:38
PROVIDERS: Visit Provider Urology
DX: E29.1 Testicular hypofunction (principal)
CPT/HCPCS: 36415; 84403; 85014

== ENCOUNTER 2022-06-15 17:08 | Outpatient (REF) | payer BC, SELFPAY ==
[2022-06-15 17:59] LABS: Influenza A PCR NEGATIVE (Negative); Influenza B PCR NEGATIVE (Negative); Resp Syncy Virus RNA Qual PCR NEGATIVE (Negative); SARS COV2 PCR INHOUSE NEGATIVE (Negative)
== END 2022-06-15 17:09 | disposition home or self-care (01) ==
LOC: HO.LNP 17:08
PROVIDERS: Visit Provider Nurse Practitioner Family
DX: Z20.822 Contact with and (suspected) exposure to COVID-19 (principal); R09.89 Other specified symptoms and signs involving the circulatory and respiratory systems
CPT/HCPCS: 0241U

== ENCOUNTER → 2022-06-19 11:16 | Outpatient (BNVA) | payer BC, SELFPAY | PROVIDERS: PCP Internal Medicine; Visit Provider Urology | DX: E29.1 Testicular hypofunction (principal) ==

== ENCOUNTER → 2022-07-13 09:26 | Outpatient (BNVA) | payer BC, SELFPAY | PROVIDERS: PCP Internal Medicine; Referring Provider Internal Medicine; Visit Provider Internal Medicine Cardiovascular Disease | DX: Z13.89 Encounter for screening for other disorder (principal) ==

== ENCOUNTER 2022-07-21 08:35 | Outpatient (REF) | payer BC, SELFPAY ==
[2022-07-21 11:40] LABS: MANUAL DIFF FLAG NO
[2022-07-21 11:57] LABS: Basophils Percent Auto 0.5 % (0-2); Eosinophils Absolute Auto 0.3 X10*3/uL (0.0-0.4); Eosinophils Percent Auto 4.3 % (0-4); Hematocrit 54.3 % (42.0-52.0); Hemoglobin 18.1 g/dl (14.0-18.0); Imm Gran Abs Auto 0.05 X10*3/uL (0.00-0.03); Imm Gran Pct Auto 0.6 % (0.0-0.4); Lymphocytes Absolute Auto 2.1 X10*3/uL (1.2-4.9); Lymphocytes Percent Auto 26.9 % (20-40); Mean Corpuscular HGB Conc 33.3 g/dl (31.0-36.0); Mean Corpuscular Hemoglobin 28.2 pg (27.0-33.0); Mean Corpuscular Volume 84.7 fL (80.0-98.0); Mean Platelet Volume 11.8 fL (9.4-12.4); Monocytes Absolute Auto 0.5 X10*3/uL (0.1-1.2); Monocytes Percent Auto 6.8 % (2-11); Neutrophils Absolute Auto 4.9 x10*3/uL (2.0-8.3); Neutrophils Percent Auto 60.9 % (45-73); Platelet Count 149 X10*3/uL (160-400); Red Blood Count 6.41 X10*6/uL (4.60-5.80); Red Cell Distribution Width 15.9 % (11.0-16.0)
[2022-07-21 12:36] LABS: Alanine Aminotransferase 39 U/L (0-40); Albumin Level 4.5 g/dL (3.5-5.0); Alkaline Phosphatase 65 U/L (39-117); Anion Gap 14 (12-20); Aspartate Amino Transferase 25 U/L (5-37); Bilirubin Total 4.4 mg/dL (0.0-1.0); Blood Urea Nitrogen 20 mg/dL (9-16); Calcium 9.3 mg/dL (8.4-10.2); Carbon Dioxide 28 mmol/L (22-29); Chloride 104 mmol/L (96-108); Cholesterol 123 mg/dL; Estimated Glomerular Filt Rate > 60; Glucose Fasting 100 mg/dL (60-99); HDL Cholesterol 39 mg/dL; LDL Cholesterol Calculated 63 mg/dl; Potassium 4.2 mmol/L (3.3-5.1); Sodium 142 mmol/L (135-145); TSH reflex Free T4 0.88 uIU/mL (0.32-4.0); Total Protein 7.2 g/dL (6.5-8.0); Triglycerides 108 mg/dL
[2022-07-21 12:38] LABS: B Type Natriuretic Peptide 59 pg/mL (<100)
== END 2022-07-21 08:36 | disposition home or self-care (01) ==
LOC: HO.HMGCLDS 08:35
PROVIDERS: Absent Provider Internal Medicine Cardiovascular Disease; PCP Internal Medicine; Visit Provider Internal Medicine
DX: Z00.01 Encounter for general adult medical examination with abnormal findings (principal); I42.9 Cardiomyopathy, unspecified; J02.9 Acute pharyngitis, unspecified; R53.83 Other fatigue
CPT/HCPCS: 36415; 80053; 80061; 83880; 84443; 85025

== ENCOUNTER → 2022-11-27 10:29 | Outpatient (BNVA) | payer BC, SELFPAY ==
[2022-09-10 13:00] VITALS: BP 126/74; BP 136/88
[2022-11-04 11:48] VITALS: BP 104/70; BMI 35.6
== END ==
PROVIDERS: PCP Internal Medicine; Referring Provider Internal Medicine; Visit Provider Internal Medicine Cardiovascular Disease
DX: I20.8 Other forms of angina pectoris (principal); I10 Essential (primary) hypertension; E78.5 Hyperlipidemia, unspecified
CPT/HCPCS: 93005

== ENCOUNTER 2023-01-05 06:43 | Outpatient (REF) | payer BC, SELFPAY ==
[2022-09-10 13:00] VITALS: BP 126/74; BP 136/88
[2022-11-30 10:01] VITALS: BP 102/74; BMI 35.6
[2023-01-05 11:34] LABS: Hematocrit 51.5 % (42.0-52.0); Hemoglobin 17.2 g/dl (14.0-18.0); Mean Corpuscular HGB Conc 33.4 g/dl (31.0-36.0); Mean Corpuscular Hemoglobin 28.5 pg (27.0-33.0); Mean Corpuscular Volume 85.4 fL (80.0-98.0); Mean Platelet Volume 12.2 fL (9.4-12.4); Platelet Count 144 X10*3/uL (160-400); Red Blood Count 6.03 X10*6/uL (4.60-5.80); Red Cell Distribution Width 12.7 % (11.0-16.0); White Blood Count 6.4 X10*3/uL (4.8-10.8)
[2023-01-05 12:04] LABS: Prostate Specific Antigen 1.67 ng/mL (<0.05-4.0)
[2023-01-10 16:13] LABS: Testosterone, Total 219 ng/dL (250-1100)
== END 2023-01-05 06:44 | disposition home or self-care (01) ==
LOC: HO.HMGCLDS 06:43
PROVIDERS: PCP Internal Medicine; Visit Provider Urology
DX: Z12.5 Encounter for screening for malignant neoplasm of prostate (principal); E29.1 Testicular hypofunction
CPT/HCPCS: 36415; 84153; 84403; 85027

== ENCOUNTER → 2023-01-13 09:32 | Outpatient (BNVA) | payer BC, SELFPAY ==
[2022-09-10 13:00] VITALS: BP 126/74; BP 136/88
[2022-11-30 10:01] VITALS: BP 102/74; BMI 35.6
== END ==
PROVIDERS: PCP Internal Medicine; Visit Provider Internal Medicine Cardiovascular Disease

== ENCOUNTER 2023-01-14 09:46 | Outpatient (AMB) | payer BC, SELFPAY ==
[2022-09-10 13:00] VITALS: BP 126/74; BP 136/88
[2022-11-30 10:01] VITALS: BP 102/74; BMI 35.6
--- NOTE | 2023-01-14 11:35 | A.OFFVIS_ITS ---
Intake Intake Visit Reasons: 6M CBC/PSA/Testo(pending) Allergies niacin Allergy (Unknown, Verified 01/13/23 10:00) high doses - cause lip swelling, blurred vision Penicillins Adverse Reaction (Severe, Verified 01/13/23 10:00) Diarrhea HPI HPI Comments History of Present Illness Details Cory is a very pleasant male. He is a patient of Dr. Ramírez. He is here for the following urologic conditions - hypogonadism Telemedicine Evaluation 15 min Consultation [employer] Inessa Video attempted Had ceased Testosterone secondary to not interested in intercourse Recommend to restart testosterone since it has been shown to have positive benefit in men with cardiac failure, depression, diabetes Unable to take tadalafil secondary to cardiac issues Prescription provided Six month follow-up Hypogonadism Symptomatic decline in libido Decreased strength Lack of energy Injection day Wednesday Lab work T 12/16 195, 08/19 T 870 P 3.2 H 53.6, 03/19 755 1.9 56, 06/18 T 626 H 55.8, 01/17 T 219 1.7 51.5 Had altered dosage secondary to increasing hematocrit Associated comorbidities include cardiovascular disease - prior [place] and revascularization, diabetes - 01/15 T 500 - other baseline labs - FSH 10.9 - suggestive of testicular decreased hormone sensitivity Erectile dysfunction Unable to take PDE use since on isosorbide PFSH Medical History CAD (coronary artery disease) HLD (hyperlipidemia) HTN (hypertension) Low testosterone in male Surgical History Hx of cardiac cath Stented coronary artery (~05/2019) Family History Mother Cancer Diabetes HTN (hypertension) Father HTN (hypertension) Social History Housing: House Alcohol intake: never Patient Tobacco Use Status: Never used Tobacco e-Cigarette/Vaping Use: Never Used Second Hand Smoke Exposure: Yes (as a child) Current occupational status: employed Current occupation: [employer] Cognitive needs: No Hearing needs: No Vision needs: Yes Review of Systems Const All systems reviewed & are unremarkable except as noted in HPI and below Reports no additional complaints Resp Reports no additional complaints GI Reports no additional complaints Reports as per HPI Musc Reports no additional complaints Physical Exam Telemedicine evaluation Appropriate responses Regular breathing rate and rhythm HEENT Head: Yes normal to inspection Ears: hearing grossly normal bilaterally Eyes General: appearance normal, both eyes and all related structures Neck Neck: Yes normal visual inspection Chest Chest palpation & inspection: normal inspection of the chest Resp Effort & Inspection: normal respiratory effort and able to speak in complete sentences Assessment & Plan Assessment & Plan (1) Erectile dysfunction associated with type 2 diabetes mellitus: Code(s): E11.69 - Type 2 diabetes mellitus with other specified complication; N52.1 - Erectile dysfunction due to diseases classified elsewhere (2) Hypogonadism in male: Code(s): E29.1 - Testicular hypofunction Plan Six month follow-up Orders: Orders Prostate Specific Antigen 6 Months R7. - Other specified abnormal findings of blood chemistry Testosterone, Total 6 Months R7. - Other specified abnormal findings of blood chemistry Complete Blood Count no Diff 6 Months R7 - Other specified abnormal findings of blood chemistry Medications: Changed From testosterone cypionate (Depo-Testosterone) 100 mg IM Q4W E29.1 - Testicular hypofunction To testosterone cypionate (Depo-Testosterone) 80 mg (0.4 mL) IM QWEEK 2 mL 5RF 28 days E29.1 - Testicular hypofunction Patient Instructions: Imaging studies, laboratory and physical exam results were discussed and reviewed in detail. No major barriers to patient understanding were identified. An opportunity to ask questions regarding the treatment plan was provided. All questions were answered. The patient expressed understanding and agreement with the above treatment plan. The patient is aware they should contact our office by phone for worsening of their current condition or the appearance of new urologic symptoms. Compliance is encouraged with any medications and followup testing that is ordered. It is a privilege to participate in the urologic care of your patient. If you have any questions or concerns regarding treatment for the above conditions, or other urologic issues, please do not hesitate to contact me. The office telephone contact is [phone]. This note is constructed using voice recognition software. While every effort has been made to ensure accuracy vocational education professional errors may have been included. Yours sincerely, Dr Min Singh MD, [facility] - Urology Providers of Expert, Compassionate Care for the Genitourinary System Telehealth Telehealth Location of provider rendering services: practice address Location of patient: address on file Patient Identification confirmed using: Name, : Yes Telehealth method: video Patient verbally consented to treatment: Yes Patient verbally consented to billing insurance company: Yes Patient informed of any privacy concerns related to visit: Yes Coding Level of Care Code Tele Est Pt Level 4 (40549) Diagnoses Erectile dysfunction associated with type 2 diabetes mellitus E11.69; N52.1 Hypogonadism in male E29.1
== END 2023-01-14 11:47 | disposition home or self-care (01) ==
LOC: HO.HUSH 09:46
PROVIDERS: PCP Internal Medicine; Visit Provider Urology
DX: E11.69 Type 2 diabetes mellitus with other specified complication (principal); N52.1 Erectile dysfunction due to diseases classified elsewhere; E29.1 Testicular hypofunction
CPT/HCPCS: 99214

== ENCOUNTER → 2023-01-14 09:46 | Outpatient (BNVA) | payer BC, SELFPAY ==
[2022-09-10 13:00] VITALS: BP 126/74; BP 136/88
[2022-11-30 10:01] VITALS: BP 102/74; BMI 35.6
== END ==
PROVIDERS: PCP Internal Medicine; Visit Provider Urology

== ENCOUNTER 2023-03-15 12:52 | Outpatient (AMB) | payer BC, SELFPAY ==
[2022-09-10 13:00] VITALS: BP 126/74; BP 136/88
[2023-03-15 12:51] VITALS: BP 114/78; BMI 36.1
--- NOTE | 2023-03-15 13:22 | MHC.OFFWIV ---
Intake Vital Signs 03/15/23 13:31 Height 5 ft 9 in Weight 249 lb BMI 36.8 BP 128/76 Blood Pressure Location Lt brachial Position Sitting Pulse 88 Pulse Source Pulse Oximeter Pulse Oximetry (%) 96 Oxygen Delivery Method Room Air Intake Visit Reasons: EST/dizziness/bp issues? Intake Note: Patient is here today for dizziness/light head, been occurring for 5 days. Patient Tobacco Use Status: Never used Tobacco Allergies niacin Allergy (Unknown, Verified 03/15/23 13:31) high doses - cause lip swelling, blurred vision Penicillins Adverse Reaction (Severe, Verified 03/15/23 13:31) Diarrhea Do you need a note to return to daycare/school/sports/work: Yes HPI EST/dizziness/bp issues? HPI Details 62-year-old male presents to the office for a sick visit. For the past 5 days patient complains that his dizziness symptoms have worsened. He is able to walk and dry without any difficulty. No nausea or vomiting. He is taking meclizine up to 3 times a day. He also has history of chronic tinnitus. [facility] Medical History CAD (coronary artery disease) HLD (hyperlipidemia) HTN (hypertension) Low testosterone in male Surgical History Hx of cardiac cath Stented coronary artery (~05/2019) Family History Mother Cancer Diabetes HTN (hypertension) Father HTN (hypertension) Social History Housing: House Alcohol intake: never Patient Tobacco Use Status: Never used Tobacco e-Cigarette/Vaping Use: Never Used Second Hand Smoke Exposure: Yes (as a child) Current occupational status: employed Current occupation: [employer] Cognitive needs: No Hearing needs: No Vision needs: Yes Physical Exam Vital Signs: Last Vital Signs Pulse 88 03/15/23 13:31 BP 128/76 03/15/23 13:31 Pulse Ox 96 03/15/23 13:31 Oxygen Delivery Method Room Air 03/15/23 13:31 BMI result Body Mass Index 36.8 Const General: cooperative and healthy appearing Nutritional Appearance: well nourished Orientation/consciousness: patient oriented x3 Limitations: no limitations HEENT Head: Yes normal to inspection Eyes General: appearance normal, both eyes and all related structures Neck Neck: Yes normal visual inspection Chest Chest palpation & inspection: normal palpation of entire chest wall Resp Effort & Inspection: normal respiratory effort Neuro General: patient oriented x3 Assessment & Plan Assessment & Plan (1) Dizziness: Code(s): R42 - Dizziness and giddiness Plan: Antibiotics added to the regimen. Blood work has been added. Patient receives monthly testosterone. His hemoglobin was increasing. Will call with the results on his CBC. Orders: Orders Basic Metabolic Panel Today R42 - Dizziness and giddiness Erythrocyte Sedimentation Rate Today R42 - Dizziness and giddiness Complete Blood Count no Diff Today R42 - Dizziness and giddiness Coding Level of Care Code Est Pt Level 4 (21881) Diagnoses Dizziness R42
[2023-03-15 13:31] VITALS: BP 128/76; PULSE 88; O2SAT 96; BMI 36.8
== END 2023-03-15 13:52 | disposition home or self-care (01) ==
PROVIDERS: PCP Internal Medicine; Visit Provider Internal Medicine
DX: R42 Dizziness and giddiness (principal)
CPT/HCPCS: 99214

== ENCOUNTER 2023-03-15 13:53 | Outpatient (REF) | payer BC, SELFPAY ==
[2022-09-10 13:00] VITALS: BP 126/74; BP 136/88
[2023-03-15 12:51] VITALS: BP 114/78; BMI 36.1
[2023-03-15 16:08] LABS: Hemoglobin 18.7 g/dl (14.0-18.0); Mean Corpuscular HGB Conc 31.9 g/dl (31.0-36.0); Mean Corpuscular Volume 93.9 fL (80.0-98.0); Mean Platelet Volume 12.1 fL (9.4-12.4); Platelet Count 171 X10*3/uL (160-400); Red Blood Count 6.24 X10*6/uL (4.60-5.80); Red Cell Distribution Width 13.5 % (11.0-16.0); White Blood Count 14.2 X10*3/uL (4.8-10.8)
[2023-03-15 16:14] LABS: Hematocrit 58.6 % (42.0-52.0)
[2023-03-15 16:18] LABS: Anion Gap 11 (12-20); Blood Urea Nitrogen 18 mg/dL (9-16); Carbon Dioxide 27 mmol/L (22-29); Chloride 105 mmol/L (96-108); Estimated Glomerular Filt Rate 57; Glucose Random 120 mg/dL (60-115); Sodium 139 mmol/L (135-145)
[2023-03-15 17:25] LABS: Erythrocyte Sedimentation Rate 1 MM/HR (0-15)
== END 2023-03-15 13:54 | disposition home or self-care (01) ==
LOC: HO.HMGCLDS 13:53
PROVIDERS: PCP Internal Medicine; Visit Provider Internal Medicine
DX: R42 Dizziness and giddiness (principal)
CPT/HCPCS: 36415; 80048; 85027; 85652

== ENCOUNTER 2023-03-17 09:58 | Outpatient (AMB) | payer BC, SELFPAY ==
[2023-03-17 09:17] VITALS: BP 114/78; BP 126/74; BP 136/88; BMI 36.1
[2023-03-17 10:00] VITALS: BP 134/100; PULSE 88; TEMP 36.8; O2SAT 96; BMI 36.0
--- NOTE | 2023-03-17 10:00 | MHC.PC.OV ---
Vital Signs 03/17/23 10:00 Height 5 ft 9 in Weight 243 lb 8 oz BMI 36.0 BP 134/100 H Blood Pressure Location Rt brachial Position Sitting Pulse 88 Pulse Source Pulse Oximeter Temp 98.2 F Temp Source Oral Pulse Oximetry (%) 96 Oxygen Delivery Method Room Air Intake Visit Reasons: follow up Dizziness Allergies niacin Allergy (Unknown, Verified 03/17/23 10:04) high doses - cause lip swelling, blurred vision Penicillins Adverse Reaction (Severe, Verified 03/17/23 10:04) Diarrhea Medication List - Last Reconciled 03/17/23 by Isamra Ramírez MD azithromycin take 500 mg today (day 1), then 250 mg for 4 days (days 2-5) PO cholecalciferol (vitamin D3) 25 mcg PO DAILY clopidogrel 75 mg PO DAILY isosorbide mononitrate ER 30 mg PO DAILY meclizine 50 mg PO BID 15 days metoprolol succinate ER 50 mg PO DAILY prednisone 20 mg PO DAILY 5 days sacubitril-valsartan 24-26 mg (Entresto) 1 tab PO BID 90 days testosterone cypionate (Depo-Testosterone) 80 mg (0.4 mL) IM QWEEK 28 days Tobacco use date assessed: 03/17/23 Dental Screening Dental Screen Date: 03/17/23 Did you have a dental visit in the last 12 months?: Yes Did you have a dental problem in the last 6 months where you did not have access to dental care?: No Was dental information given to patient?: Patient has dentist HPI follow up Dizziness HPI Details Patient is 62-year-old gentleman came in today to be evaluated for severe dizziness for the past 3 days Patient says that he has seen another provider and was prescribed antibiotic that he is taking azithromycin and have 3 more days to go. On examination both of his ear canals are erythematous, upon further questioning patient notified me that he had to use Q-tips regularly And he uses earplugs at night because he has autistic child at home was creams at night. Advice patient to stop using the ear plugs which is causing inflammation in the ear canal He is to continue with antibiotic and finish that and also stop using Q-tips. I have sent prednisone 20 mg 1 tablet daily with food for 5 days And meclizine 50 mg b.i.d. And medication for nausea. Note given to be off work till Wednesday. There is no fever no chills no shortness of breath no sore throat no headache PFSH Medical History Low testosterone in male HLD (hyperlipidemia) HTN (hypertension) CAD (coronary artery disease) Surgical History Hx of cardiac cath Stented coronary artery (~05/2019) Family History Mother Cancer Diabetes HTN (hypertension) Father HTN (hypertension) Social History Housing: House Alcohol intake: never Patient Tobacco Use Status: Never used Tobacco e-Cigarette/Vaping Use: Never Used Second Hand Smoke Exposure: Yes (as a child) Current occupational status: employed Current occupation: [employer] Cognitive needs: No Hearing needs: No Vision needs: Yes Questionnaire PHQ-9 Over the last 2 weeks, how often have you been bothered by any of the following problems? 1. Little interest or pleasure in doing things: not at all 2. Feeling down, depressed, or hopeless: not at all 3. Trouble falling or staying asleep, or sleeping too much: not at all 4. Feeling tired or having little energy: nearly every day 5. Poor appetite or overeating: not at all 6. Feeling bad about yourself - or that you are a failure or have let yourself or your family down: not at all 7. Trouble concentrating on things, such as reading the newspaper or watching television: not at all 8. Moving or speaking so slowly that other people could have noticed. Or the opposite - being so fidgety or restless that you have been moving around a lot more than usual: not at all 9. Thoughts that you would be better off or of hurting yourself in some way: not at all Total score: 3 Depression Screening Interpretation: Negative 19798 - PHQ-9 Billing: Yes Source: Developed by Drs. Reza Obrien, Geena Carlos, Kristopher Kahn and colleagues, with an educational yodit from [employer]. Thrive Questionnaire Date Thrive assessed: 05/26/22 AUDIT C Alcohol Use Questionnaire (AUDIT-C) 1. How often do you have a drink containing alcohol?: Never 3. How often do you have six or more drinks on one occasion?: Never Total Score: 0 Score Reviewed/Action Taken: Yes MIGUEL-7 AMB Questionnaire MIGUEL-7 Date MIGUEL - 7 assessed: 05/26/22 Source: Developed by Drs. Reza Obrien, Geena Carlos, Kristopher Kahn and colleagues, with an educational yodit from [employer]. Review of Systems Const Denies chills and Denies fever(s) ENT Denies epistaxis and Denies nasal discharge Card Denies chest pain Resp Denies chest congestion, Denies cough and Denies hemoptysis GI Denies diarrhea and Denies nausea Skin/Breast Denies rash Neuro Reports no additional complaints Psych Reports no additional complaints Endo Reports no additional complaints Physical exam (Primary Care) Vital Signs: Last Vital Signs Temp 98.2 F 03/17/23 10:00 Pulse 88 03/17/23 10:00 BP 134/100 H 03/17/23 10:00 Pulse Ox 96 03/17/23 10:00 Oxygen Delivery Method Room Air 03/17/23 10:00 BMI result Body Mass Index 36.0 Tobacco/Smoking Status: Tobacco use Status Tobacco use date assessed 03/17/23 03/17/23 10:04 Patient Tobacco Use Status Never used Tobacco 03/17/23 10:04 e-Cigarette/Vaping Use Never Used 03/17/23 10:04 Depression Screening Interpretation: Negative Thrive Assessment: Date of Thrive Assessment Date Thrive assessed 05/26/22 03/17/23 10:04 Const General: cooperative, comfortable and no acute distress Orientation/consciousness: patient oriented x3 [facility] Head: Yes normocephalic Eyes General: appearance normal, both eyes and all related structures Neck Neck: Yes supple Resp Effort & Inspection: normal respiratory effort, no cough and no stridor Cardio Rhythm: regular rhythm Heart sounds: S1 normal heart sound present and S2 normal heart sound present Skin General skin exam: turgor normal Neuro General: patient oriented x3, tone normal and moves all extremities Extrem Right lower extremity: no edema Left lower extremity: no edema Assessment and Plan Assessment & Plan (1) Benign positional vertigo: Code(s): H81.10 - Benign paroxysmal vertigo, unspecified ear Qualifiers: Laterality: bilateral Qualified Code(s): H81.13 - Benign paroxysmal vertigo, bilateral (2) Ear infection: Code(s): H66.90 - Otitis media, unspecified, unspecified ear (3) Nausea: Code(s): R11.0 - Nausea Plan Patient is 62-year-old gentleman came in today to be evaluated for severe dizziness for the past 3 days Patient says that he has seen another provider and was prescribed antibiotic that he is taking azithromycin and have 3 more days to go. On examination both of his ear canals are erythematous, upon further questioning patient notified me that he had to use Q-tips regularly And he uses earplugs at night because he has autistic child at home was creams at night. Advice patient to stop using the ear plugs which is causing inflammation in the ear canal He is to continue with antibiotic and finish that and also stop using Q-tips. I have sent prednisone 20 mg 1 tablet daily with food for 5 days And meclizine 50 mg b.i.d. And medication for nausea. Note given to be off work till Wednesday. There is no fever no chills no shortness of breath no sore throat no headache Medications: New meclizine 50 mg PO BID 30 tabs 0RF dizziness 15 days prednisone 20 mg PO DAILY 5 tabs 0RF 5 days ondansetron HCl 4 mg PO Q8H PRN 14 tabs 0RF nausea and vomiting 7 days R11.0 - Nausea Coding Level of Care Code Est Pt Level 3 (15522) Diagnoses Benign paroxysmal positional vertigo due to bilateral vestibular disorder H81.13 Laterality: bilateral Ear infection H66.90 Nausea R11.0
== END 2023-03-17 12:06 | disposition home or self-care (01) ==
LOC: HO.HMGC 09:58
PROVIDERS: PCP Internal Medicine; Visit Provider Internal Medicine
DX: H81.13 Benign paroxysmal vertigo, bilateral (principal); H66.90 Otitis media, unspecified, unspecified ear; R11.0 Nausea
CPT/HCPCS: 99213

== ENCOUNTER 2023-05-26 09:25 | Outpatient (AMB) | payer BC, SELFPAY ==
[2023-05-26 09:35] VITALS: BP 130/80; PULSE 72; BMI 35.5
--- NOTE | 2023-05-26 09:35 | A.OFFVIS_ITS ---
Intake Vital Signs 05/26/23 09:35 Height 5 ft 9 in Weight 240 lb 4.862 oz BMI 35.5 BP 130/80 Blood Pressure Location Lt brachial Position Sitting Pulse 72 Pulse Source Pulse Oximeter Intake Visit Reasons: 3 month follow up Intake Note: 3 month follow up/ patient feel good. 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 Accompanied by: Self / Same As Patient Allergies niacin Allergy (Unknown, Verified 05/26/23 09:37) high doses - cause lip swelling, blurred vision Penicillins Adverse Reaction (Severe, Verified 05/26/23 09:37) Diarrhea Medication List - Last Reconciled 05/26/23 by Capo Bautista MD aspirin (Adult Aspirin Regimen) 81 mg PO DAILY atorvastatin 40 mg PO DAILY azithromycin take 500 mg today (day 1), then 250 mg for 4 days (days 2-5) PO cholecalciferol (vitamin D3) 25 mcg PO DAILY clopidogrel 75 mg PO DAILY isosorbide mononitrate ER 30 mg PO DAILY meclizine 50 mg (2 x 25 mg) PO BID 15 days metoprolol succinate ER 50 mg PO DAILY sacubitril-valsartan 24-26 mg (Entresto) 1 tab PO BID testosterone cypionate (Depo-Testosterone) 80 mg (0.4 mL) IM QWEEK 28 days HPI HPI Comments History of Present Illness Details 62 years old gentleman was referred for history of coronary artery disease and dyspnea. In 2007 he presented with syncope and had an abnormal stress test. He was taken for cardiac catheterization by Dr. 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 He had successful SPRAY OPERATOR PCI by Dr. Nicho simms. He followed up with him and then stopped following up. He was referred for exercise stress test which showed inferior perfusion defect. This led to cardiac catheterization showing three-vessel disease including an IFR positive LAD, distal RCA severe stenosis and chronic total occlusion of the left circumflex with [id number] collaterals. After discussion with him was taken back for multivessel PCI and underwent PCI of the right coronary artery as well as SPRAY OPERATOR PCI the left circumflex OM. The LAD was decided to medically manage. He was put in cardiac rehab and has been doing well there. In the interim he got admitted to [facility] with NSTEMI and was noticed to have occluded right coronary artery with [id number] collaterals. Ejection fraction was dropped in the moderate range at that time. He was asymptomatic at the time of catheterization and was at least 48 hours into the event and we decided to medically treat him. He was started on guideline directed medical therapy for cardiomyopathy. He had a limited echo which showed EF improvement to 50 55% with basal inferior wall akinesis and inferolateral wall hypokinesis. He has been doing well with medical management at this stage. He is returning for follow-up today. He said he had some headache, left-sided reproducible chest pain and palpitations. He said he stopped taking aspirin and atorvastatin and few days later his symptoms improved. He has not been taking aspirin atorvastatin since then. He is taking rest of his medications otherwise. He has known chest discomfort shortness of breath currently. 05/26/23: He returns for follow-up. He has been doing well. No chest discomfort shortness of breath. 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 He did cardiac rehabilitation but after finishing he has not been exercising. I have advised him to start exercising again. Last visit he told us that he was having some or chest pains and he stopped taking aspirin and he was advised restarted. He has been taking aspirin along with Plavix at this stage. Blood pressure control is good. Tolerating medications well. [facility] Medical History Low testosterone in male HLD (hyperlipidemia) HTN (hypertension) CAD (coronary artery disease) Surgical History Hx of cardiac cath Stented coronary artery (~05/2019) Family History Mother Cancer Diabetes HTN (hypertension) Father HTN (hypertension) Social History Housing: House Alcohol intake: never Patient Tobacco Use Status: Never used Tobacco e-Cigarette/Vaping Use: Never Used Second Hand Smoke Exposure: Yes (as a child) Current occupational status: employed Current occupation: [employer] Cognitive needs: No Hearing needs: No Vision needs: Yes Review of Systems Const Denies chills, Denies fatigue, Denies fever(s), Denies frequent falls, Denies weakness, Denies weight gain and Denies weight loss ENT Denies dizziness Card Denies chest pain, Denies leg edema, Denies lightheadedness, Denies palpitations, Denies dyspnea, Denies dyspnea on exertion, Denies orthopnea and Denies other (loss of consciousness) Resp Denies cough, Denies dyspnea and Denies dyspnea on exertion GI Denies hematochezia and Denies change in stool character Musc Denies abnormal gait, Denies muscle weakness, Denies numbness, Denies radiating pain into limb and Denies tingling Neuro Denies abnormal gait, Denies dizziness, Denies frequent falls, Denies numbness, Denies tingling and Denies weakness Endo Denies fatigue and Denies palpitations Physical Exam Vital Signs: Last Vital Signs Pulse 72 05/26/23 09:35 BP 130/80 05/26/23 09:35 BMI result Body Mass Index 35.5 GENERAL APPEARANCE: in no acute distress, pleasant. NECK: no carotid bruit, no jugular venous distention. SKIN: no suspicious lesions, warm and dry. HEART: no murmurs, regular rate and rhythm. LUNGS: clear to auscultation bilaterally. ABDOMEN: soft, nontender. EXTREMITIES: no edema. PERIPHERAL PULSES: equal. NEUROLOGIC: No gross deficits, AAO X 3 Assessment & Plan Assessment & Plan (1) HTN (hypertension): Code(s): I10 - Essential (primary) hypertension (2) CAD (coronary artery disease): Code(s): I25.10 - Atherosclerotic heart disease of [place] coronary artery without angina pectoris (3) Stable angina: Code(s): I20.8 - Other forms of angina pectoris Plan Pleasant 62-year-old gentleman who is here for follow-up. History of coronary artery disease and currently has stable angina. He has low normal ejection fraction based on echocardiography. Taking medications regularly. He is on aspirin and Plavix at this point. Blood pressure control is good. I have advised him to start increasing his physical activity. He will follow-up with us in 3 months. Thank you for allowing me to participate in the care of your patient. Please feel free to contact me if you have any questions. Coding Level of Care Code Est Pt Level 4 (35224) Diagnoses HTN (hypertension) I10 CAD (coronary artery disease) I25.10 Stable angina I20.8
== END 2023-05-26 09:54 | disposition home or self-care (01) ==
PROVIDERS: PCP Internal Medicine; Visit Provider Internal Medicine Cardiovascular Disease
DX: I25.118 Atherosclerotic heart disease of native coronary artery with other forms of angina pectoris (principal); I10 Essential (primary) hypertension
CPT/HCPCS: 99213

== ENCOUNTER → 2023-05-26 09:25 | Outpatient (BNVA) | payer BC, SELFPAY | PROVIDERS: PCP Internal Medicine; Visit Provider Internal Medicine Cardiovascular Disease ==

== ENCOUNTER 2023-05-27 08:37 | Outpatient (AMB) | payer BC, SELFPAY ==
[2023-05-27 08:58] VITALS: BP 120/76; PULSE 60; TEMP 36.2; O2SAT 97; BMI 35.9
--- NOTE | 2023-05-27 08:58 | MHC.OFFWIV ---
Intake Vital Signs 05/27/23 08:58 Height 5 ft 9 in Weight 243 lb BMI 35.9 BP 120/76 Blood Pressure Location Rt brachial Position Sitting Pulse 60 Pulse Source Pulse Oximeter Temp 97.2 F Temp Source Temporal Artery Scan Pulse Oximetry (%) 97 Oxygen Delivery Method Room Air Intake Visit Reasons: EP, right shoulder pain Intake Note: pt is here for c.o right shoulder pain 5x days, denies injury Patient Tobacco Use Status: Never used Tobacco Allergies niacin Allergy (Unknown, Verified 05/27/23 09:02) high doses - cause lip swelling, blurred vision Penicillins Adverse Reaction (Severe, Verified 05/27/23 09:02) Diarrhea Do you need a note to return to daycare/school/sports/work: Yes HPI HPI Comments History of Present Illness Details This is a 62-year-old xckuk-[id number] male with a past medical history of hypertension and coronary artery disease presenting for evaluation of right shoulder pain that has been evolving over the past 7 days. Patient states he was lifting a heavy object weighing approximately 125 lb the day after Thanksgiving to hang and he experienced the pain two days after. Patient has taken a single dose of ibuprofen 400 mg without relief is discomfort. Patient denies having any neck pain or right forearm pain. 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 [facility]LY [facility] Medical History Low testosterone in male HLD (hyperlipidemia) HTN (hypertension) CAD (coronary artery disease) Surgical History Hx of cardiac cath Stented coronary artery (~05/2019) Family History Mother Cancer Diabetes HTN (hypertension) Father HTN (hypertension) Social History Housing: House Alcohol intake: never Patient Tobacco Use Status: Never used Tobacco e-Cigarette/Vaping Use: Never Used Second Hand Smoke Exposure: Yes (as a child) Current occupational status: employed Current occupation: [employer] Cognitive needs: No Hearing needs: No Vision needs: Yes Review of Systems Const All systems reviewed & are unremarkable except as noted in HPI and below Reports as per HPI Musc Details: R. anterior shoulder pain. Reports no additional complaints and Reports as per HPI Physical Exam Vital Signs: Last Vital Signs Temp 97.2 F 05/27/23 08:58 Pulse 60 05/27/23 08:58 BP 120/76 05/27/23 08:58 Pulse Ox 97 05/27/23 08:58 Oxygen Delivery Method Room Air 05/27/23 08:58 BMI result Body Mass Index 35.9 Const General: cooperative, healthy appearing, comfortable, no acute distress and well developed; No ill appearing Nutritional Appearance: average body habitus Orientation/consciousness: patient oriented x3 Limitations: no limitations Cardio Rate: regular rate Rhythm: regular rhythm Skin General skin exam: no rashes or lesions noted Neuro General: patient oriented x3 Extrem Right upper extremity: normal to inspection and shoulder/upper arm Details: normal to inspection, tenderness (anterior right shoulder; no right clavicular tenderness, no crepitus) and abnormal ROM; no swelling, no crepitus, no deformity and no unusual warmth; ROM limited (R. shoulder limited ROM secondary to pain.) Assessment & Plan Assessment & Plan (1) Right shoulder strain: Code(s): S46.911A - Strain of unspecified muscle, fascia and tendon at shoulder and upper arm level, right arm, initial encounter Plan Naprosyn and robaxin x 10 days; patient will follow-up with PCP within 7-10 days for a reevaluation of this injury and possible referral for physical therapy evaluation. Imaging not indicated today following history and examination. Work note provided through 05.31.2023. Medications: New naproxen (Naprosyn) 500 mg PO BID 20 tabs 0RF methocarbamol 750 mg PO Q8H 20 tabs 0RF Coding Level of Care Code Est Pt Level 3 (98386) Diagnoses Right shoulder strain S46.911A Time Spent (min) 20
== END 2023-05-27 10:11 | disposition home or self-care (01) ==
PROVIDERS: PCP Internal Medicine; Visit Provider Physician Assistant
DX: S46.911A Strain of unspecified muscle, fascia and tendon at shoulder and upper arm level, right arm, initial encounter (principal)
CPT/HCPCS: 99213

== ENCOUNTER 2023-07-10 07:24 | Outpatient (REF) | payer BC, SELFPAY ==
[2023-07-10 11:14] LABS: Hemoglobin 18.8 g/dl (14.0-18.0); Mean Corpuscular Hemoglobin 28.5 pg (27.0-33.0); Mean Corpuscular Volume 86.5 fL (80.0-98.0); Mean Platelet Volume 12.3 fL (9.4-12.4); Platelet Count 156 X10*3/uL (160-400); Red Blood Count 6.59 X10*6/uL (4.60-5.80); Red Cell Distribution Width 17.4 % (11.0-16.0); White Blood Count 8.4 X10*3/uL (4.8-10.8)
[2023-07-10 11:43] LABS: Prostate Specific Antigen 2.72 ng/mL (<0.05-4.0)
[2023-07-14 16:44] LABS: Testosterone, Total 1126 ng/dL (250-1100)
== END 2023-07-10 07:25 | disposition home or self-care (01) ==
LOC: HO.HMGCLDS 07:24
PROVIDERS: PCP Internal Medicine; Visit Provider Urology
DX: Z12.5 Encounter for screening for malignant neoplasm of prostate (principal); R79.89 Other specified abnormal findings of blood chemistry
CPT/HCPCS: 36415; 84153; 84403; 85027

== ENCOUNTER 2023-07-21 09:35 | Outpatient (AMB) | payer BC, SELFPAY ==
[2022-09-10 13:00] VITALS: BP 126/74; BP 136/88
[2022-11-30 10:01] VITALS: BP 102/74; BMI 35.6
--- NOTE | 2023-07-21 09:36 | MHC.OFFVIS ---
Intake Intake Visit Reasons: 6M PSA/Testo(set) Intake Note: Patient is Present for Follow Up psa/testosterone Urology Medication: Testosterone Antibiotic Allergies: Penicillins Blood Thinners: Plavix Allergies niacin Allergy (Unknown, Verified 07/21/23 09:46) high doses - cause lip swelling, blurred vision Penicillins Adverse Reaction (Severe, Verified 07/21/23 09:46) Diarrhea HPI HPI Comments History of Present Illness Details Cory is a very pleasant male. He is a patient of Dr. Ramírze. He is here for the following urologic conditions - hypogonadism Here for testosterone follow-up Has difficulty with estimating amount to inject Currently with super physiologic T level Hematocrit 57 which is above guidance of 53 Appears to be a response to use of testosterone cypionate and difficulty with peak versus trough values Published data would suggest switch to testosterone ethonate form. This is available in xyosted Prescription provided Previously Had ceased Testosterone secondary to not interested in intercourse Recommend to restart testosterone since it has been shown to have positive benefit in men with cardiac failure, depression, diabetes Unable to take tadalafil secondary to cardiac issues High hematocrit Switch to zyosted to manage dosing Hypogonadism Symptomatic decline in libido Decreased strength Lack of energy Injection day Wednesday Lab work T 12/16 195, 08/19 T 870 P 3.2 H 53.6, 03/19 755 1.9 56, 06/18 T 626 H 55.8, 01/17 T 219 1.7 51.5, 07/21 1100 2.7 hct 57 Had altered dosage secondary to increasing hematocrit Associated comorbidities include cardiovascular disease - prior MT and revascularization, diabetes - 01/15 T 500 - other baseline labs - FSH 10.9 - suggestive of testicular decreased hormone sensitivity Erectile dysfunction Unable to take PDE use since on isosorbide PFSH Medical History Low testosterone in male HLD (hyperlipidemia) HTN (hypertension) CAD (coronary artery disease) Surgical History Hx of cardiac cath Stented coronary artery (~05/2019) Family History Mother Cancer Diabetes HTN (hypertension) Father HTN (hypertension) Social History Housing: House Alcohol intake: never Patient Tobacco Use Status: Never used Tobacco e-Cigarette/Vaping Use: Never Used Second Hand Smoke Exposure: Yes (as a child) Current occupational status: employed Current occupation: [employer] Cognitive needs: No Hearing needs: No Vision needs: Yes Review of Systems Const Denies chills and Denies fever(s) Card Reports no additional complaints and Denies syncope Resp Denies cough GI Denies abdominal pain and Denies heartburn Reports as per HPI and Denies change in libido Neuro Denies syncope Psych Denies change in libido Endo Denies change in libido Physical Exam Const General: cooperative, healthy appearing, comfortable and no acute distress Orientation/consciousness: patient oriented x3 HEENT Face and sinus: Yes normal facial exam Mouth: moist mucous membranes Neck Neck: Yes normal visual inspection, Yes full ROM and Yes trachea midline Chest Chest palpation & inspection: normal inspection of the chest Resp Effort & Inspection: normal respiratory effort, able to speak in complete sentences and no respiratory distress GI Inspection: Yes normal to inspection Back/Spine/Pelvis Cervical Spine: normal cervical lordosis Thoracic/Lumbar Spine: thoracic and lumbar spine normal to inspection Skin General skin exam: no rashes or lesions noted Neuro General: patient oriented x3, gait normal, tone normal and moves all extremities Extrem General: Yes normal to inspection and Yes capillary refill normal Assessment & Plan Assessment & Plan (1) Erectile dysfunction associated with type 2 diabetes mellitus: Code(s): E11.69 - Type 2 diabetes mellitus with other specified complication; N52.1 - Erectile dysfunction due to diseases classified elsewhere (2) Hypogonadism in male: Code(s): E29.1 - Testicular hypofunction (3) High hematocrit: Code(s): R71.8 - Other abnormality of red blood cells Plan 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 No major barriers to patient understanding were identified. An opportunity to ask questions regarding the treatment plan was provided. All questions were answered. The patient expressed understanding and agreement with the above treatment plan. The patient is aware they should contact our office by phone for worsening of their current condition or the appearance of new urologic symptoms. Compliance is encouraged with any medications and followup testing that is ordered. It is a privilege to participate in the urologic care of your patient. If you have any questions or concerns regarding treatment for the above conditions, or other urologic issues, please do not hesitate to contact me. The office telephone contact is [phone]. This note is constructed using voice recognition software. While every effort has been made to ensure accuracy contract manager errors may have been included. Yours sincerely, Dr Min Singh MD, [facility] [place] - Urology Providers of Expert, Compassionate Care for the Genitourinary System Coding Level of Care Code Est Pt Level 4 (45864) Diagnoses Erectile dysfunction associated with type 2 diabetes mellitus E11.69; N52.1 Hypogonadism in male E29.1 High hematocrit R71.8
== END 2023-07-21 10:03 | disposition home or self-care (01) ==
PROVIDERS: PCP Internal Medicine; Visit Provider Urology
DX: E11.69 Type 2 diabetes mellitus with other specified complication (principal); N52.1 Erectile dysfunction due to diseases classified elsewhere; E29.1 Testicular hypofunction; R71.8 Other abnormality of red blood cells
CPT/HCPCS: 99214

== ENCOUNTER → 2023-07-21 09:35 | Outpatient (BNVA) | payer BC, SELFPAY | PROVIDERS: PCP Internal Medicine; Visit Provider Urology ==

== ENCOUNTER 2023-09-13 08:51 | Outpatient (AMB) | payer BC, SELFPAY ==
[2023-09-13 08:54] VITALS: BP 90/60; PULSE 64; BMI 33.7
--- NOTE | 2023-09-13 08:54 | MHC.OFFVIS ---
Intake Vital Signs 09/13/23 08:54 Height 5 ft 9 in Weight 227 lb 15.327 oz BMI 33.7 BP 90/60 Blood Pressure Location Rt brachial Position Sitting Pulse 64 Pulse Source Pulse Oximeter Intake Visit Reasons: 3 mnth f/up Chief Of Safety And Protection Required: No Allergies niacin Allergy (Unknown, Verified 09/13/23 08:55) high doses - cause lip swelling, blurred vision Penicillins Adverse Reaction (Severe, Verified 09/13/23 08:55) Diarrhea Medication List - Last Reconciled 09/13/23 by Wendy Aragon NP-C aspirin (Adult Aspirin Regimen) 81 mg PO DAILY atorvastatin 40 mg PO DAILY cholecalciferol (vitamin D3) 25 mcg PO DAILY clopidogrel 75 mg PO DAILY isosorbide mononitrate ER 30 mg PO DAILY meclizine 50 mg (2 x 25 mg) PO BID 15 days metoprolol succinate ER 50 mg PO DAILY sacubitril-valsartan 24-26 mg (Entresto) 1 tab PO BID Xyosted (testosterone enanthate) 50 mg (0.5 mL) subcut QWEEK 28 days NS HPI 3 mnth f/up HPI Details Cory is a 62-year-old male with past medical history of hypertension, hyperlipidemia, diabetes, CAD with prior multivessel PCI who was admitted to [facility] on 01/12/2022 with chest discomfort then transferred to [facility] for NSTEMI.? He underwent a cardiac catheterization showing 100% occluded RCA with clot, left to right collaterals which was managed medically.? An echocardiogram showed EF 25-35% with global hypokinesis, inferior akinetic.? He was started on the appropriate medical management, had a repeat limited echocardiogram showing EF back to 50-55%. Today he reports that he has been experiencing depression since starting a new testosterone supplement. States if he does activities such as cleaning the garage he feels better. He has not been experiencing any chest discomfort at rest or with activity. No concerning shortness of breath, palpitations, lightheadedness, presyncope, syncope, PND, orthopnea or edema. He takes all his meds as directed. His home blood pressure averages 90/60. He is concerned that may be too low. FORMERLY [facility] Medical History Low testosterone in male HLD (hyperlipidemia) HTN (hypertension) CAD (coronary artery disease) Surgical History Hx of cardiac cath Stented coronary artery (~05/2019) Family History Mother Cancer Diabetes HTN (hypertension) Father HTN (hypertension) Social History Housing: House Alcohol intake: never Patient Tobacco Use Status: Never used Tobacco e-Cigarette/Vaping Use: Never Used Second Hand Smoke Exposure: Yes (as a child) Current occupational status: employed Current occupation: [employer] Cognitive needs: No Hearing needs: No Vision needs: Yes Review of Systems Const Details: feeling depressed with new testosterone medication All systems reviewed & are unremarkable except as noted in HPI and below ENT Denies dizziness Card Denies chest pain, Denies chest pain at rest, Denies chest pain with activity, Denies rapid heart rate, Denies pedal edema, Denies edema, Denies leg edema, Denies lightheadedness, Denies palpitations, Denies dyspnea, Denies dyspnea on exertion and Denies orthopnea Resp Denies cough, Denies dyspnea and Denies dyspnea on exertion GI Denies hematochezia and Denies change in stool character Musc Denies abnormal gait, Denies limited range of motion, Denies muscle cramps, Denies muscle weakness, Denies numbness, Denies radiating pain into limb, Denies stiffness and Denies tingling Neuro Denies abnormal gait, Denies dizziness, Denies numbness and Denies tingling Endo Denies palpitations Physical Exam Vital Signs: Last Vital Signs Pulse 64 09/13/23 08:54 BP 90/60 09/13/23 08:54 BMI result Body Mass Index 33.7 Const General: cooperative, healthy appearing, comfortable and no acute distress Orientation/consciousness: patient oriented x3 Neck Neck: Yes normal visual inspection and Yes no JVD Resp Effort & Inspection: normal respiratory effort Auscultation: clear to auscultation bilaterally, no rales, no rhonchi and no wheezes Cardio Jugular venous distension: no JVD Rate: regular rate Rhythm: regular rhythm Heart sounds: S1 normal heart sound present, S2 normal heart sound present, no murmurs and no rubs Neuro General: patient oriented x3 Extrem General: Yes normal to inspection, No no pedal edema and No calf tenderness Psych Appearance: grossly normal Mental Status: mental status grossly normal Speech and movement: Normal speech and movement present Assessment & Plan Assessment & Plan (1) NSTEMI (non-ST elevation myocardial infarction): Code(s): I21.4 - Non-ST elevation (NSTEMI) myocardial infarction Plan: [place] [facility] [place] with report of chest discomfort. He ruled in for ACS and was transferred to [facility]. A cardiac catheterization done the following day shows moderate LAD stenosis, RCA 100% occlusion with clot, collaterals left to right. His discomfort had resolved and troponins were trending downward. He was then manage medically. An echocardiogram showed EF 25-35%, global hypokinesis, inferior akinetic. He was put on aspirin, Plavix, atorvastatin, isosorbide, Entresto, metoprolol. He did have a limited echo on 02/06/2022 showing EF 50-55%, inferior lateral hypokinesis, basal inferior akinetic, moderate decrease in the RV systolic function. He has been doing generally well since that time. He did complete cardiac rehab. He has been compliant with his meds. Recently has been experiencing some depression which he thinks is related to his new testosterone medication. Will forward this to his urologist for review. Instructed patient to discuss this symptom with urology. His blood pressure is running on low side with home average 90/60. Office blood pressure today 90/60, recheck done by me, jazz. Will reduce metoprolol XL down to 25 mg daily from 50 mg daily. Continue Entresto. Continue aspirin, Plavix and atorvastatin. [place] LDL goal less than 70. Signs and symptoms of angina reviewed with him. If he does have recurrent symptoms then may need PCI to the RCA. He is aware of this plan. Cardiology follow-up in 6 months, sooner if needed (2) S/P cardiac cath: Comment: 01/13/2022, LAD stenosis 65-70%, IFR 0.88, left circumflex patent stent, RCA 100% occluded with clot, collaterals left to right ,medically managed Code(s): Z98.890 - Other specified postprocedural states Plan: As above (3) CAD (coronary artery disease): Code(s): I25.10 - Atherosclerotic heart disease of [place] coronary artery without angina pectoris Qualifiers: Associated angina: with stable angina Coronary Disease-Associated Artery/Lesion type: [place] artery [place] vs. transplanted heart: [place] heart Qualified Code(s): I25.118 - Atherosclerotic heart disease of [place] coronary artery with other forms of angina pectoris Plan: History of CAD with prior PCI to the RCA and left circumflex. Known residual LAD stenosis without prior intervention. Now with NSTEMI as above (4) Hx of cardiac cath: Comment: Three vessel disease including an IF are positive LAD, distal RCA severe stenosis and chronic total occlusion of left circumflex with csob-yr-ppab collaterals, taken back for multi-vessel PCI and underwent PCI of right coronary artery as well as CT0 PCI of left circumflex OM. LAD was managed medically. Last catheterization 06/06/2019 Code(s): Z98.890 - Other specified postprocedural states Plan: As above (5) HTN (hypertension): Code(s): I10 - Essential (primary) hypertension Qualifiers: Hypertension type: primary hypertension Qualified Code(s): I10 - Essential (primary) hypertension Plan: Running low. Metoprolol being reduced (6) HLD (hyperlipidemia): Code(s): E78.5 - Hyperlipidemia, unspecified Plan: LDL goal less than 70 and patient with known history of CAD. He brought in labs from outside laboratory. LDL 47 done 02/23/2022. He does report having some muscle aching on atorvastatin 40 mg daily and had requested to reduce his atorvastatin dose, which was previously reduced to 40 mg daily. He is due for a fasting lipid profile and LFTs. Will forward this note to his PCP. (7) Cardiomyopathy: Code(s): I42.9 - Cardiomyopathy, unspecified Qualifiers: Cardiomyopathy type: unspecified Qualified Code(s): I42.9 - Cardiomyopathy, unspecified Plan: EF has improved to low normal. Plan Time spent on chart review, documentation, interview and assessment Medications: New metoprolol succinate ER dose reduced 25 mg PO DAILY 90 tabs 3RF Discontinued metoprolol succinate ER Discontinued Reason: Doctor's Order 50 mg PO DAILY 90 tabs 3RF Coding Level of Care Code Est Pt Level 4 (31533) Diagnoses NSTEMI (non-ST elevation myocardial infarction) I21.4 S/P cardiac cath Z98.890 Coronary artery disease of [place] artery of [place] heart with stable angina pectoris I25.118 Associated angina: with stable angina Coronary Disease-Associated Artery/Lesion type: [place] artery [place] vs. transplanted heart: [place] heart Hx of cardiac cath Z98.890 Primary hypertension I10 Hypertension type: primary hypertension HLD (hyperlipidemia) E78.5 Cardiomyopathy, unspecified type I42.9 Cardiomyopathy type: unspecified Time Spent (min) 28
== END 2023-09-13 09:24 | disposition home or self-care (01) ==
PROVIDERS: PCP Internal Medicine; Visit Provider Nurse Practitioner Family
DX: I21.4 Non-ST elevation (NSTEMI) myocardial infarction (principal); Z98.890 Other specified postprocedural states; I25.118 Atherosclerotic heart disease of native coronary artery with other forms of angina pectoris; I10 Essential (primary) hypertension; E78.5 Hyperlipidemia, unspecified; I42.9 Cardiomyopathy, unspecified
CPT/HCPCS: 99214

== ENCOUNTER → 2023-09-13 08:51 | Outpatient (BNVA) | payer BC, SELFPAY | PROVIDERS: PCP Internal Medicine; Visit Provider Nurse Practitioner Family ==

== ENCOUNTER → 2023-09-20 09:10 | Outpatient (BNVA) | payer BC, SELFPAY | PROVIDERS: PCP Internal Medicine; Visit Provider Urology ==

== ENCOUNTER → 2023-10-04 08:43 | Outpatient (BNVA) | payer BC, SELFPAY | PROVIDERS: PCP Internal Medicine; Visit Provider Urology | DX: Z46.6 Encounter for fitting and adjustment of urinary device (principal); R33.9 Retention of urine, unspecified | CPT/HCPCS: 51700; 51798 ==

== ENCOUNTER 2023-10-09 10:08 | Inpatient (IN) | payer BC, SELFPAY ==
--- NOTE | ~2023-10-09 | CT_ITS ---
EXAMINATION: CT ABDOMEN AND PELVIS WITHOUT CONTRAST CLINICAL INFORMATION: Urinary incontinence and blood in urine COMPARISON: None available. TECHNIQUE: Multidetector volumetric imaging was performed from the superior aspect of the liver through the pubic symphysis. Sagittal and coronal reformatted images were obtained on the technologist's workstation. This CT examination was performed using dose optimization techniques as appropriate, variously including the following: *Automated exposure control *Adjustment of mA and/or kV according to patient size (this includes techniques or standardized protocols for targeted exams where dose is matched to indication/reason for exam; i.e. extremities or head) *Use of iterative reconstruction technique DLP: 812 mGy-cm FINDINGS: LUNG BASES: The visualized lung bases are unremarkable. LIVER, GALLBLADDER, AND BILIARY TREE: The liver is normal in size, shape, and attenuation. No focal hepatic lesion or biliary ductal dilatation is present. The gallbladder is unremarkable with no evidence of radiopaque gallstones, gallbladder wall thickening, or obvious pericholecystic inflammatory changes. PANCREAS: Unremarkable. SPLEEN: Unremarkable. ADRENAL GLANDS: Unremarkable. KIDNEYS AND URETERS: Upper normal size kidneys measuring 13 cm in length. Question renal cortical thickening. Mild perinephric fat stranding. No stone, or hydronephrosis. There is mild fullness of both renal collecting systems. Both ureters appear slightly dilated down to the bladder. BLADDER: Rincon catheter in the bladder. The bladder is nearly empty. Or millimeter bladder stone. GASTROINTESTINAL TRACT: The small and large bowel are unremarkable. The appendix is not seen.. ABDOMINAL WALL: No significant hernia is appreciated. LYMPH NODES: Normal. VASCULAR: Unremarkable. PELVIC VISCERA: Enlarged prostate gland protrudes into the base of the bladder. The prostate gland measures 6.3 x 6.4 cm. OSSEOUS STRUCTURES: Degenerative changes of the spine. CT/CT abdomen pelvis wo IV con IMPRESSION: Rincon catheter in the bladder. 3 mm bladder stone. Upper normal-sized kidneys with question renal cortical thickening and increased perinephric fat stranding. No hydronephrosis. Mild bilateral ureteral dilatation down to the bladder. Enlarged prostate gland. Fleischner guidelines were followed.
[2023-10-09 10:09] VITALS: BP 149/93; PULSE 106; RESP 18; TEMP 36.4; O2SAT 98; BMI 32.7
[2023-10-09 10:28] LABS: MANUAL DIFF FLAG NO
[2023-10-09 10:33] LABS: Basophils Percent Auto 0.1 % (0-2); Eosinophils Absolute Auto 0.1 X10*3/uL (0.0-0.4); Eosinophils Percent Auto 0.4 % (0-4); Hematocrit 53.8 % (42.0-52.0); Hemoglobin 18.8 g/dl (14.0-18.0); Imm Gran Abs Auto 0.07 X10*3/uL (0.00-0.03); Imm Gran Pct Auto 0.5 % (0.0-0.4); Lymphocytes Absolute Auto 1.1 X10*3/uL (1.2-4.9); Lymphocytes Percent Auto 7.8 % (20-40); Mean Corpuscular HGB Conc 34.9 g/dl (31.0-36.0); Mean Corpuscular Hemoglobin 29.4 pg (27.0-33.0); Mean Corpuscular Volume 84.2 fL (80.0-98.0); Mean Platelet Volume 10.7 fL (9.4-12.4); Monocytes Absolute Auto 1.4 X10*3/uL (0.1-1.2); Monocytes Percent Auto 10.1 % (2-11); Neutrophils Absolute Auto 10.8 x10*3/uL (2.0-8.3); Neutrophils Percent Auto 81.1 % (45-73); Platelet Count 186 X10*3/uL (160-400); Red Blood Count 6.39 X10*6/uL (4.60-5.80); Red Cell Distribution Width 13.6 % (11.0-16.0); White Blood Count 13.4 X10*3/uL (4.8-10.8)
[2023-10-09 10:45] LABS: Alanine Aminotransferase 23 U/L (0-40); Albumin Level 4.5 g/dL (3.5-5.0); Alkaline Phosphatase 64 U/L (39-117); Anion Gap 17 (12-20); Aspartate Amino Transferase 29 U/L (5-37); Bilirubin Total 3.3 mg/dL (0.0-1.0); Blood Urea Nitrogen 19 mg/dL (9-16); Calcium 10.2 mg/dL (8.4-10.2); Carbon Dioxide 25 mmol/L (22-29); Chloride 100 mmol/L (96-108); Creatinine Clr Calc Pharmacy 53.2; Estimated Glomerular Filt Rate 42; Glucose Random 146 mg/dL (60-115); Potassium 4.6 mmol/L (3.3-5.1); Sodium 137 mmol/L (135-145); Total Protein 8.1 g/dL (6.5-8.0)
--- NOTE | 2023-10-09 11:03 | ED_ITS ---
HPI - General Adult General Chief complaint: General Medical Stated complaint: bladder and rectal issues Time Seen by Provider: 10/09/23 13:15 Source: patient Mode of arrival: ambulatory Limitations: no limitations History of Present Illness HPI narrative: This is a 62-year-old male history of vertigo, thrombocytopenia, Gilbert syndrome, NSTEMI, erectile dysfunction, obesity, hypertension, CAD, hyperlipidemia presenting to the emergency department with concerns of urinary incontinence, frequency, urgency and dysuria since . Patient was recently seen at [facility] for urinary retention where he had a Rincon catheter placed which was removed this past Wednesday, he reports since the catheter was removed he has been having these symptoms. Also complaining of rectal discomfort. Denies fevers, chills, cp, sob, nausea, vomiting, abd pain, armendariz, vision changes, dizziness, weakness. Related Data Home Medications ?Medication ?Instructions ?Recorded ?Confirmed cholecalciferol (vitamin D3) 25 25 mcg PO DAILY 05/27/20 09/13/23 mcg (1,000 unit) capsule aspirin 81 mg tablet,delayed 81 mg PO DAILY 05/26/23 09/13/23 release (Adult Aspirin Regimen) Previous Rx's ?Medication ?Instructions ?Recorded isosorbide mononitrate 30 mg 30 mg PO DAILY #90 tabs 03/02/23 tablet,extended release 24 hr meclizine 25 mg tablet 50 mg (2 x 25 mg) PO BID dizziness 03/19/23 15 days #60 tabs clopidogrel 75 mg tablet 75 mg PO DAILY #90 tabs 03/26/23 atorvastatin 40 mg tablet 40 mg PO DAILY #90 tabs 04/15/23 sacubitril 24 mg-valsartan 26 mg 1 tab PO BID #180 tabs 04/15/23 tablet (Entresto) Xyosted 50 mg/0.5 mL subcutaneous 50 mg (0.5 mL) subcut QWEEK 28 07/21/23 auto-injector ( days #2 mL enanthate) metoprolol succinate 25 mg 25 mg PO DAILY #90 tabs 09/13/23 tablet,extended release 24 hr sulfamethoxazole 800 1 tab PO bid 5 days #10 tabs 09/20/23 mg-trimethoprim 160 mg tablet (Bactrim DS) oxybutynin chloride 5 mg tablet 5 mg PO TID bladder spasms #30 tabs 09/23/23 nitrofurantoin 100 mg PO BID 5 days #10 caps 10/07/23 monohydrate/macrocrystals 100 mg capsule (Macrobid) Allergies Allergy/AdvReac Type Severity Reaction Status Date / Time niacin Allergy Unknown high doses Verified 10/09/23 10:14 - cause lip swelling, blurred vision Penicillins AdvReac Severe Diarrhea Verified 10/09/23 10:14 Review of Systems 2 Review of Systems: Yes all other systems are reviewed and are negative [facility] Past Medical History Attestation statement: The following information was validated with the patient. Source: old records reviewed and nursing notes reviewed Medical History Low testosterone in male HLD (hyperlipidemia) HTN (hypertension) CAD (coronary artery disease) Surgical History Hx of cardiac cath Stented coronary artery (~05/2019) Family History Family History Mother Cancer Diabetes HTN (hypertension) Father HTN (hypertension) Social History Social History Housing: House Alcohol intake: never Patient Tobacco Use Status: Never used Tobacco e-Cigarette/Vaping Use: Never Used Second Hand Smoke Exposure: Yes (as a child) Advance Directives: No Advance Directives Information Provided: Yes Current occupational status: employed Current occupation: [employer] Cognitive needs: No Hearing needs: No Vision needs: Yes Physical Exam ED Vital Signs: Vital Signs - 24 hr 10/09/23 10:09 10/09/23 13:00 Temperature 97.6 F Pulse Rate 106 H 67 Respiratory Rate 18 18 Blood Pressure 149/93 H 115/78 Pulse Oximetry 98 97 Oxygen Delivery Method Room Air Room Air BMI result Body Mass Index 32.7 vss Appearance: Alert.? Oriented X3.? No acute distress.? Head: Normocephalic, atraumatic, no step-offs or deformities Eyes: Pupils equal, round and reactive to light.? ENT: Pharynx normal.? Neck: Normal inspection.? Neck supple.? CVS: Normal heart rate and rhythm.? Pulses normal.? Respiratory: No respiratory distress.? Breath sounds normal.? Abdomen: Soft and nontender.? Skin: Skin warm and dry.? Normal skin color.? Normal skin turgor.? Extremities: No lower extremity edema.? No calf ttp. 5/5 strength to bilateral upper and lower extremities Neuro: Oriented X 3.? No motor deficit.? No sensory deficit. CN 2-12 intact Course Course Course Narrative: This is an RME: Additional HPI, ROS, PE not included below will be deferred to primary provider. This is a [id number], with a hx of CAD, HLD, HTN, STEMI with cardiac cath, who presents to the ER for complaints of urinary retention. Pt was seen at [facility] for urinary retension, d/c on wednesday and has had incontinence of urine with urinary frequency x 2 days. Endorsing dysuria, also reporting rectal pain and pressure. Unable to visualize due to limited privacy in triage. Further ER evaluation needed. Plan: Labs, UA, further er eval Reevaluation(s) Reevaluation #1: Patient with leukocytosis and left shift. Also noted to have an acute kidney injury. Fluids ordered. I also ordered ceftriaxone. UA with infection. Patient is already on Macrobid. However continues to have symptoms. CT abdomen pending to ensure there is no obstructing uropathy. Reached out to Dr. Singh who feels as though this is likely infectious in origin. Recommends IV antibiotics and medical admit. Urology to follow. Time: 13:41 Reevaluation #2: CT abdomen pelvis Rincon catheter in the bladder. 3 mm bladder stone. Upper normal size kidneys with question renal cortical thickening and increased perinephric stranding. No hydronephrosis. Mild bilateral ureteral dilation down to the bladder. Enlarged prostate gland. Plan hospital admission. Time: 15:14 Medications Administered Discontinued Medications Generic Name Dose Route Start Last Admin Trade Name Freq PRN Reason Stop Dose Admin Sodium Chloride 2,925.66 mls @ 2,925.66 mls/hr 10/09/23 13:16 10/09/23 13:31 Ns 30 ml/kg infuse over 1 hr (2925.66 ml) 10/09/23 14:15 2,925.66 mls/hr IV Administration .Q1H STA Ceftriaxone Sodium 1 gm/ 50 mls @ 100 mls/hr 10/09/23 13:16 10/09/23 13:54 Sodium Chloride IV 10/09/23 13:45 100 mls/hr ONCE ONE Administration Medical Decision Making Medical Decision Making [facility] Narrative: 1329 62-year-old male presents with urinary incontinence, frequency and burning status post removal Rincon catheter on Wednesday. Physical exam Will rule out UTI versus cystitis versus bladder spasms. Unlikely metabolic derangements. Unlikely pyelonephritis, no signs of acute abdomen. Plan labs, urine, will reach out to urology Differential Diagnosis Differential Diagnoses: The differential diagnosis associated with the presentation includes Will rule out UTI versus cystitis versus bladder spasms. Unlikely metabolic derangements. Unlikely pyelonephritis, no signs of acute abdomen. Admission/Observation Consideration of admission/observation: Escalation of care including admission/observation considered Consult Healthcare Provider Management of the patient was discussed with: Bit Welder ( ) Lab Data [facility] Lab Attestation statement: I reviewed the patient's lab results. 10/09/23 10:26 10/09/23 10:26 Labs: Lab Results 10/09/23 10/09/23 10/09/23 Range/Units 10:26 12:55 13:51 WBC 13.4 H (4.8-10.8) X10*3/uL RBC 6.39 H (4.60-5.80) X10*6/uL Hgb 18.8 H (14.0-18.0) g/dl Hct 53.8 H (42.0-52.0) % MCV 84.2 (80.0-98.0) fL MCH 29.4 (27.0-33.0) pg MCHC 34.9 (31.0-36.0) g/dl RDW 13.6 (11.0-16.0) % Plt Count 186 (160-400) X10*3/uL MPV 10.7 (9.4-12.4) fL Immature Gran % (Auto) 0.5 H (0.0-0.4) % Neut % (Auto) 81.1 H (45-73) % Lymph % (Auto) 7.8 L (20-40) % [place] % (Auto) 10.1 (2-11) % Eos % (Auto) 0.4 (0-4) % Baso % (Auto) 0.1 (0-2) % Lymph # (Auto) 1.1 L (1.2-4.9) X10*3/uL [place] # (Auto) 1.4 H (0.1-1.2) X10*3/uL Eos # (Auto) 0.1 (0.0-0.4) X10*3/uL Baso # (Auto) 0.0 (0.0-0.2) X10*3/uL Abs Immat Gran (auto) 0.07 H (0.00-0.03) X10*3/uL Absolute Neuts (auto) 10.8 H (2.0-8.3) x10*3/uL Absolute Nucleated RBC 0.000 (0.0-0.012) X10*3/uL Nucleated RBC % (auto) 0.0 (0.0-0.2) /100WBC Sodium 137 (135-145) mmol/L Potassium 4.6 (3.3-5.1) mmol/L Chloride 100 (96-108) mmol/L Carbon Dioxide 25 (22-29) mmol/L Anion Gap 17 (12-20) BUN 19 H (9-16) mg/dL Creatinine 1.67 H (0.5-1.4) mg/dL Estim Creat Clear Calc 53.2 Estimated GFR 42 Random Glucose 146 H (60-115) mg/dL Lactic Acid 1.3 (0.5-2.0) mmol/L Calcium 10.2 (8.4-10.2) mg/dL Total Bilirubin 3.3 H (0.0-1.0) mg/dL AST 29 (5-37) U/L ALT 23 (0-40) U/L Alkaline Phosphatase 64 (39-117) U/L Total Protein 8.1 H (6.5-8.0) g/dL Albumin 4.5 (3.5-5.0) g/dL Urine Color Yellow Urine Appearance Cloudy Urine pH 5.5 (5.0-9.0) Ur Specific [place] 1.010 (1.005-1.025) Urine Protein Negative (Neg-Trace) mg/dL Urine Glucose (UA) Negative (Negative) mg/dL Urine Ketones Trace (Negative) mg/dL Urine Blood Moderate (2+) H (Negative) Urine Nitrite Negative (Negative) Ur Leukocyte Esterase Large (3+) H (Negative) Urine RBC 3-5 H (0-2) /HPF Urine WBC >50 H (0-5) /HPF Urine WBC Clumps Present Ur Squamous Epith Cells 0-2 (0-2) /HPF Urine Bacteria Trace (None Seen) Hyaline Casts 0-2 (0-2) /LPF Independent Interpretation I performed an independent interpretation of an: CT Scan ( CT/CT abdomen pelvis wo IV con IMPRESSION: Rincon catheter in the bladder. 3 mm bladder stone. Upper normal-sized kidneys with question renal cortical thickening and increased perinephric fat stranding. No hydronephrosis. Mild bilateral ureteral dilatation down to the bladder. Enlarged prostate glan) Radiology Impression Discussion of test interpretation with radiology: I have reviewed the radiologist's reading. External Record Review External record reviewed: Inpatient record, Office record, Outpatient record, Prior outpatient labs, Prior outpatient radiology, Primary care record and Outside ED record Chronic Conditions Patient?s care impacted by: Hypertension and Other (Obesity, erectile dysfunction, NSTEMI, BPPV) Critical Care Time Critical Care Time Critical Care Time: Yes Total Critical Care Time: 45 Attestation: I attest to this time spent taking care of the patient, obtaining history, physical, reviewing labs, imaging, speaking to my attending, speaking to specialist. Discharge Plan Discharge Clinical Impression: Acute UTI, Bladder stone Prescriptions: No Action isosorbide mononitrate 30 mg tablet extended release 24 hr 30 mg PO DAILY Qty: 90 3RF meclizine 25 mg tablet 50 mg PO BID 15 Days Qty: 60 0RF clopidogrel 75 mg tablet 75 mg PO DAILY Qty: 90 3RF Entresto 24-26 mg tablet 1 tab PO BID Qty: 180 3RF atorvastatin 40 mg tablet 40 mg PO DAILY Qty: 90 3RF sulfamethoxazole-trimethoprim [Bactrim DS] 800-160 mg tablet 1 tab PO bid 5 Days Qty: 10 0RF oxybutynin chloride 5 mg tablet 5 mg PO TID Qty: 30 0RF Rx Instructions: 1 tab every 8 hours nitrofurantoin monohyd/m-cryst [Macrobid] 100 mg capsule 100 mg PO BID 5 Days Qty: 10 0RF Rx Instructions: must administer with a meal/food cholecalciferol (vitamin D3) 25 mcg (1,000 unit) capsule 25 mcg PO DAILY aspirin [Adult Aspirin Regimen] 81 mg tablet,delayed release (DR/EC) 81 mg PO DAILY metoprolol succinate 25 mg tablet extended release 24 hr 25 mg PO DAILY Qty: 90 3RF Rx Instructions: dose reduced Xyosted 50 mg/0.5 mL auto-injector 50 mg subcut QWEEK 28 Days Qty: 2 3RF Print Language: Polish
--- NOTE | 2023-10-09 12:27 | PC.NURSE ---
patient presented to ED with urinary incontinence and pain, patient bladder scanned and showed over 1100ml, schmidt placed and 1400ml urine emptied from patient bladder, patient has relief.
[2023-10-09 13:00] VITALS: BP 115/78; PULSE 67; RESP 18; O2SAT 97
[2023-10-09 13:00] LABS: Appearance Urine Cloudy; Color Urine Yellow; Glucose Urine UA Negative (Negative); Leukocyte Esterase Urine Large (3+) (Negative); Nitrite Urine Negative (Negative); PH 5.5 (5.0-9.0); UMIC TRIGGER UACC YES; Urine Blood Moderate (2+) (Negative); Urine Ketones Trace mg/dL (Negative); Urine Protein Negative (Neg-Trace)
[2023-10-09 13:08] LABS: Bacteria Urine Trace (None Seen); Hyaline Casts Urine 0-2 /LPF (0-2); Squamous Epithelial Cell Urine 0-2 /HPF (0-2); UACC Culture Trigger YES; WBC Clumps Urine Present; WBC Urine >50 /HPF (0-5)
--- NOTE | 2023-10-09 13:30 | PC.NURSE ---
800 ml urine emptied from schmidt bag
[2023-10-09] MEDS: 0.9 % Sodium Chloride 2,925.66 ML 2925.66 ML IV (13:31)
[2023-10-09] MEDS: cefTRIAXone sodium 1 GM in 0.9 % Sodium Chloride 50 ML IV ×2 (13:54→16:12)
[2023-10-09 14:08] LABS: Lactic Acid 1.3 mmol/L (0.5-2.0)
[2023-10-09 15:23] VITALS: BP 118/67; PULSE 84; RESP 18; TEMP 37.3; O2SAT 95
--- NOTE | 2023-10-09 15:28 | P.HPHOSP_ITS ---
History of Present Illness Date of Service: 10/09/23 Attending physician on admission: Radu Hendricks Chief Complaint: suprapubic pressure 62-year-old male with history of hypertension, CAD s/p PCI 2021, hyperlipidemia, hypogonadism, unspecified urinary retention with Rincon catheter discontinued 5 days ago presented due to increased frequency of urination with urgency and suprapubic pressure ongoing for 5 days. He was recently seen at [facility] for urinary retention where he had Rincon catheter placed which was removed 5 days ago. He denies any dysuria, hematuria, flank pain. No nausea or vomiting. He is also reporting rectal discomfort and external hemorrhoids. Denies any fevers, chills, melena, hematochezia, lightheadedness, palpitations, shortness of breath, chest pain. He does not feel that his urinary stream is weak nor does he feel like he is experiencing incomplete bladder emptying. On arrival, vital signs stable except for initial tachycardia which has resolved. 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 In the ED, has a leukocytosis of 13.4 with H/H 8.8/53.8%. Creatinine 1.67, BUN 19. Electrolyte levels normal. Lactic acid 1.3. Total bilirubin 3.3 which is chronic likely related to Gilbert disease. Urinalysis significant for 3+ leukocytes, 2+ blood, positive urinary sediment and trace bacteria. CT abdomen/pelvis shows Rincon catheter correctly placed in bladder with 3 mm bladder stone. Kidneys are upper normal sized with possible renal cortical thickening and increased perinephric fat stranding without any hydronephrosis. There is mild bilateral ureteral dilatation down to the bladder as well as enlarged prostate gland. In the ED has received 2.9 L IVF and 1 g ceftriaxone. Review of Systems 2 Review of Systems: General: No fevers, malaise, unintentional weight loss HEENT: No blurred vision, diplopia. No sore throat, nasal congestion, rhinorrhea, sinus pain, ear pain Cardiovascular: No chest pain, palpitations, or leg edema Respiratory: No shortness of breath, wheezing, cough GI: +abdominal pain. +hemorrhoids. No nausea, vomiting, diarrhea, constipation, melena, hematochezia : +increased urinary frequency/urgency. No dysuria, hematuria, decreased urinary output MSK: No myalgia, back pain Neuro: No headaches, weakness, paresthesias Skin: No rashes or lesions [facility] Medical History Low testosterone in male HLD (hyperlipidemia) HTN (hypertension) CAD (coronary artery disease) Family History Mother Cancer Diabetes HTN (hypertension) Father HTN (hypertension) Surgical History Hx of cardiac cath Stented coronary artery (~05/2019) Social History Housing: House Alcohol intake: never Patient Tobacco Use Status: Never used Tobacco e-Cigarette/Vaping Use: Never Used Second Hand Smoke Exposure: Yes (as a child) Advance Directives: No Advance Directives Information Provided: Yes Current occupational status: employed Current occupation: [employer] Cognitive needs: No Hearing needs: No Vision needs: Yes Meds Allergies Allergy/AdvReac Type Severity Reaction Status Date / Time niacin Allergy Unknown high doses Verified 10/09/23 10:14 - cause lip swelling, blurred vision Penicillins AdvReac Severe Diarrhea Verified 10/09/23 10:14 Home Medications ?Medication ?Instructions ?Recorded ?Confirmed ?Last Taken ?Type cholecalciferol (vitamin D3) 25 25 mcg PO DAILY 05/27/20 09/13/23 Unknown History mcg (1,000 unit) capsule aspirin 81 mg tablet,delayed 81 mg PO DAILY 05/26/23 09/13/23 Unknown History release (Adult Aspirin Regimen) Physical Exam 2 Vital Signs and Narrative: Vital Signs: Last Vital Signs Temp 97.6 F 10/09/23 10:09 Pulse 67 10/09/23 13:00 Resp 18 10/09/23 13:00 BP 115/78 10/09/23 13:00 Pulse Ox 97 10/09/23 13:00 O2 Del Method Room Air 10/09/23 13:00 BMI result Body Mass Index 32.7 Constitutional - Awake and Alert, No apparent distress. +Rigors Eyes - PERRLA, EOMI Cardiovascular - S1S2, RRR, No edema Respiratory - Normal lung expansion, Normal respiratory effort, No respiratory distress, CTA bilaterally Gastrointestinal - diffuse ttp, greatest in suprapubic area. ND; +BS; No rebound or guarding - No CVA tenderness Extremities - no calf tenderness bilaterally, no swelling Skin - Warm/Dry Neurological - Alert & oriented x3 Psychological - Appropriate affect Results Labs 10/09/23 10:26 10/09/23 10:26 Labs: Laboratory Results - last 24 hr 10/09/23 10/09/23 10/09/23 10:26 12:55 13:51 MCV 84.2 MCH 29.4 MCHC 34.9 RDW 13.6 Plt Count 186 MPV 10.7 Immature Gran % (Auto) 0.5 H Neut % (Auto) 81.1 H Lymph % (Auto) 7.8 L [place] % (Auto) 10.1 Eos % (Auto) 0.4 Baso % (Auto) 0.1 Lymph # (Auto) 1.1 L [place] # (Auto) 1.4 H Eos # (Auto) 0.1 Baso # (Auto) 0.0 Abs Immat Gran (auto) 0.07 H Absolute Neuts (auto) 10.8 H Absolute Nucleated RBC 0.000 Nucleated RBC % (auto) 0.0 Anion Gap 17 Estim Creat Clear Calc 53.2 Estimated GFR 42 Random Glucose 146 H Lactic Acid 1.3 Calcium 10.2 Total Bilirubin 3.3 H AST 29 ALT 23 Alkaline Phosphatase 64 Total Protein 8.1 H Albumin 4.5 Urine Color Yellow Urine Appearance Cloudy Urine pH 5.5 Ur Specific [place] 1.010 Urine Protein Negative Urine Glucose (UA) Negative Urine Ketones Trace Urine Blood Moderate (2+) H Urine Nitrite Negative Ur Leukocyte Esterase Large (3+) H Urine RBC 3-5 H Urine WBC >50 H Urine WBC Clumps Present Ur Squamous Epith Cells 0-2 Urine Bacteria Trace Hyaline Casts 0-2 Imaging Radiologist's Impressions: Impressions Abdomen/Pelvis CT 10/09/23 14:10 IMPRESSION: Rincon catheter in the bladder. 3 mm bladder stone. Upper normal-sized kidneys with question renal cortical thickening and increased perinephric fat stranding. No hydronephrosis. Mild bilateral ureteral dilatation down to the bladder. Enlarged prostate gland. Fleischner guidelines were followed. Assessment and Plan (1) Urinary retention: Status: Acute (2) Bladder stone: Status: Acute (3) Acute UTI: Status: Acute Plan 62-year-old male with history of hypertension, CAD s/p PCI 2021, hyperlipidemia, hypogonadism, unspecified urinary retention with Rincon catheter discontinued 5 days ago admitted for BRODY secondary to obstructive uropathy and UTI. # acute pyelonephritis with sepsis -CT with evidence of perinephric fat stranding. Patient with noted rigors but afebrile. Leukocytosis of 13.4, mild tachycardia. BRODY related to above, not severe sepsis. Lactic acid normal. No hypotension -continue gentle IVF -IV ceftriaxone 2g (initiated 10/08) -follow renal function -follow cbc, cultures # acute kidney injury-likely postrenal due to enlarged prostate -Rincon catheter placed , -1.3L -CT abdomen/pelvis shows Rincon catheter in the bladder with 3 mm bladder stone and upper normal-sized kidneys with question of renal cortical thickening and increased perinephric fat stranding, no hydronephrosis. There is mild bilateral ureteral dilatation down to the bladder and enlarged prostate gland -strict I&O -avoid nephrotoxins -continue gentle IVF -follow renal function/lytes # acute urinary retention likely related to BPH -Rincon catheter placed -initiate Flomax 0.4 mg nightly -urology consult #HTN -bp reasonably controlled -continue isosorbide, metoprolol. Hold Entresto in setting of BRODY # CAD/HLD -no chest pain -continue DAPT (cardiac cath 12/2021), statin, beta-alena #External hemorrhoids -proctofoam bid DVT prophyalxis- Lovenox Full code Patient requires inpatient stay at least 2 midnights for management of acute pyelonephritis with obstructive uropathy causing BRODY requiring IV antibiotics, IV fluid resuscitation, close monitoring of renal function electrolyte levels as well as expert consultation Quality Stroke Does the patient have a stroke diagnosis?: No VTE Prior VTE?: No VTE Risk Level:: Medical - moderate - high VTE Device Contraindication: Treatment Not Indicated VTE Drug Contraindication: N/A - Med Ordered
--- NOTE | 2023-10-09 15:30 | PC.NURSE ---
1400 ml output emptied from schmidt bag by medical chief technician
--- NOTE | 2023-10-09 15:37 | PC.NURSE ---
800 ml emptied from pt schmidt bag
[2023-10-09] MEDS: 0.9 % Sodium Chloride 1,000 ML 100 ML IVCONT (16:19)
[2023-10-09] MEDS: Enoxaparin Sodium 40 MG/0.4 ML SYRINGE SUBCUT (16:21)
--- NOTE | 2023-10-09 17:15 | PHA.MEDREC ---
Pharmacy Consult ? Medication Reconciliation Pharmacy has completed the medication reconciliation. spoke with patient to confirm medications. He reports experiencing muscle pain with atorvastatin so he is no longer taking it.
--- NOTE | 2023-10-09 17:58 | PC.NURSE ---
1400 ml urine emptied from pt schmidt bag
--- NOTE | 2023-10-09 18:57 | MHC.EDTECH ---
THIS TECH TOOK OVER AT 1900
[2023-10-09 20:16] VITALS: BP 147/85; PULSE 87; RESP 18; TEMP 36.3; O2SAT 95
[2023-10-09] MEDS: Hydrocortisone 2.5 % Rectal Cr 30 GM TUBE 1 APPL PR (20:52)
[2023-10-09] MEDS: Tamsulosin HCL 0.4 MG CAPSULE PO (20:59)
[2023-10-10] MEDS: 0.9 % Sodium Chloride 1,000 ML 100 ML IVCONT (01:01)
[2023-10-10] MEDS: Acetaminophen 325 MG TABLET 650 MG PO (03:17)
[2023-10-10 03:29] VITALS: BP 117/65; PULSE 71; RESP 18; TEMP 36.2; O2SAT 94
[2023-10-10 06:04] LABS: MANUAL DIFF FLAG NO
[2023-10-10 06:17] LABS: Basophils Percent Auto 0.4 % (0-2); Eosinophils Absolute Auto 0.2 X10*3/uL (0.0-0.4); Hematocrit 51.7 % (42.0-52.0); Hemoglobin 17.3 g/dl (14.0-18.0); Imm Gran Abs Auto 0.05 X10*3/uL (0.00-0.03); Imm Gran Pct Auto 0.6 % (0.0-0.4); Lymphocytes Absolute Auto 1.6 X10*3/uL (1.2-4.9); Lymphocytes Percent Auto 19.6 % (20-40); Mean Corpuscular HGB Conc 33.5 g/dl (31.0-36.0); Mean Corpuscular Hemoglobin 29.3 pg (27.0-33.0); Mean Corpuscular Volume 87.5 fL (80.0-98.0); Mean Platelet Volume 10.7 fL (9.4-12.4); Monocytes Absolute Auto 0.9 X10*3/uL (0.1-1.2); Monocytes Percent Auto 10.5 % (2-11); Neutrophils Absolute Auto 5.4 x10*3/uL (2.0-8.3); Neutrophils Percent Auto 65.9 % (45-73); Platelet Count 165 X10*3/uL (160-400); Red Blood Count 5.91 X10*6/uL (4.60-5.80); Red Cell Distribution Width 13.6 % (11.0-16.0); White Blood Count 8.1 X10*3/uL (4.8-10.8)
[2023-10-10 06:44] LABS: Anion Gap 12 (12-20); Blood Urea Nitrogen 13 mg/dL (9-16); Calcium 9.2 mg/dL (8.4-10.2); Carbon Dioxide 28 mmol/L (22-29); Chloride 107 mmol/L (96-108); Creatinine Clr Calc Pharmacy 104.6; Estimated Glomerular Filt Rate > 60; Glucose Random 107 mg/dL (60-115); Potassium 3.8 mmol/L (3.3-5.1); Sodium 143 mmol/L (135-145)
--- NOTE | 2023-10-10 07:16 | P.PNIM_ITS ---
Subjective Subjective Date of Service: 10/10/23 Interval History: Seen in follow up for pyelonephritis, obstructive uropathy Interval history Feeling better. No fevers,chills, suprapubic pressure. Schmidt in place has drained 3.8L since admission. Sepsis resolved, creatinine trending down Review of Systems Review of Systems: Yes all other systems are reviewed and are negative Physical Exam 2 Vital Signs: Vital Signs: Last Vital Signs Temp 97.1 F 10/10/23 03:29 Pulse 71 10/10/23 03:29 Resp 18 10/10/23 03:29 BP 117/65 10/10/23 03:29 Pulse Ox 94 10/10/23 03:29 O2 Del Method Room Air 10/10/23 03:29 BMI result Body Mass Index 32.7 Constitutional - Awake and Alert, No apparent distress Eyes - PERRLA, EOMI Cardiovascular - S1S2, RRR, No edema Respiratory - Normal lung expansion, Normal respiratory effort, No respiratory distress, CTA bilaterally Gastrointestinal - NT / ND; +BS; No rebound or guarding - schmidt in place draining dark yellow urine Extremities - no calf tenderness bilaterally, no swelling Skin - Warm/Dry Neurological - Alert & oriented x3 Psychological - Appropriate affect Objective Data Active Medications Acetaminophen (Acetaminophen 325 Mg Tablet) 650 mg PO Q6H PRN PRN Reason: Pain, Mild (Pain Scale 1-3) Last Admin: 10/10/23 03:17 Dose: 650 mg Documented By: GABI Enoxaparin Sodium (Enoxaparin Sodium 40 Mg/0.4 Ml Syringe) 40 mg SUBCUT Q24H [facility] Last Admin: 10/09/23 16:21 Dose: 40 mg Documented By: JOHN Hydrocortisone (Hydrocortisone 2.5 % Rectal Cr 30 Gm Tube) 1 appl IN BID [facility] Last Admin: 10/09/23 20:52 Dose: 1 appl Documented By: GABI Ceftriaxone Sodium 1 gm/ (Sodium Chloride) 50 mls @ 100 mls/hr IV Q24H [facility] Ondansetron HCl (Ondansetron Hcl 4 Mg/2 Ml Vial) 4 mg IVPUSH Q8H PRN PRN Reason: Nausea and Vomiting Senna (Sennosides 8.6 Mg Tablet) 17.2 mg PO BEDTIME PRN PRN Reason: Constipation Sodium Chloride (0.9 % Sodium Chloride Flush 3 Ml Syringe) 3 ml IVFLUSH QSHIFT [facility] Last Admin: 10/10/23 00:02 Dose: Not Given Documented By: GABI Non-Admin Reason: IV Running Tamsulosin HCl (Tamsulosin Hcl 0.4 Mg Capsule) 0.4 mg PO BEDTIME [facility] Last Admin: 10/09/23 20:59 Dose: 0.4 mg Documented By: GABI Labs 10/10/23 05:59 10/10/23 05:59 Labs: Laboratory Results - last 24 hr 10/09/23 10/09/23 10/09/23 10:26 12:55 13:51 MCV 84.2 MCH 29.4 MCHC 34.9 RDW 13.6 Plt Count 186 MPV 10.7 Immature Gran % (Auto) 0.5 H Neut % (Auto) 81.1 H Lymph % (Auto) 7.8 L Gila % (Auto) 10.1 Eos % (Auto) 0.4 Baso % (Auto) 0.1 Lymph # (Auto) 1.1 L Gila # (Auto) 1.4 H Eos # (Auto) 0.1 Baso # (Auto) 0.0 Abs Immat Gran (auto) 0.07 H Absolute Neuts (auto) 10.8 H Absolute Nucleated RBC 0.000 Nucleated RBC % (auto) 0.0 Anion Gap 17 Estim Creat Clear Calc 53.2 Estimated GFR 42 Random Glucose 146 H Lactic Acid 1.3 Calcium 10.2 Total Bilirubin 3.3 H AST 29 ALT 23 Alkaline Phosphatase 64 Total Protein 8.1 H Albumin 4.5 Urine Color Yellow Urine Appearance Cloudy Urine pH 5.5 Ur Specific [place] 1.010 Urine Protein Negative Urine Glucose (UA) Negative Urine Ketones Trace Urine Blood Moderate (2+) H Urine Nitrite Negative Ur Leukocyte Esterase Large (3+) H Urine RBC 3-5 H Urine WBC >50 H Urine WBC Clumps Present Ur Squamous Epith Cells 0-2 Urine Bacteria Trace Hyaline Casts 0-2 10/10/23 05:59 MCV 87.5 MCH 29.3 MCHC 33.5 RDW 13.6 Plt Count 165 MPV 10.7 Immature Gran % (Auto) 0.6 H Neut % (Auto) 65.9 Lymph % (Auto) 19.6 L Gila % (Auto) 10.5 Eos % (Auto) 3.0 Baso % (Auto) 0.4 Lymph # (Auto) 1.6 Gila # (Auto) 0.9 Eos # (Auto) 0.2 Baso # (Auto) 0.0 Abs Immat Gran (auto) 0.05 H Absolute Neuts (auto) 5.4 Absolute Nucleated RBC 0.000 Nucleated RBC % (auto) 0.0 Anion Gap 12 Estim Creat Clear Calc 104.6 Estimated GFR > 60 Random Glucose 107 Lactic Acid Calcium 9.2 D Total Bilirubin AST ALT Alkaline Phosphatase Total Protein Albumin Urine Color Urine Appearance Urine pH Ur Specific [place] Urine Protein Urine Glucose (UA) Urine Ketones Urine Blood Urine Nitrite Ur Leukocyte Esterase Urine RBC Urine WBC Urine WBC Clumps Ur Squamous Epith Cells Urine Bacteria Hyaline Casts Assessment and Plan (1) Acute UTI: Status: Acute (2) Urinary retention: Status: Acute (3) Sepsis: Status: Acute Plan 62-year-old male with history of hypertension, CAD s/p PCI 2021, hyperlipidemia, hypogonadism, unspecified urinary retention with Schmidt catheter discontinued 5 days ago admitted for BRODY secondary to obstructive uropathy and UTI. # acute pyelonephritis with sepsis on admission -CT with evidence of perinephric fat stranding. Patient with noted rigors but afebrile. Leukocytosis of 13.4, mild tachycardia. BRODY related to above, not severe sepsis. Lactic acid normal. No hypotension. Sepsis resolved 10/09 -dc IVF -IV ceftriaxone 2g 10/08, decrease to 1mg ctx 10/09 due to significantly improved clinical presentation -follow renal function -follow cbc, cultures # acute kidney injury-likely postrenal due to enlarged prostate- resolved -Schmidt catheter placed. Creat now baseline 0.85 -CT abdomen/pelvis shows Schmidt catheter in the bladder with 3 mm bladder stone and upper normal-sized kidneys with question of renal cortical thickening and increased perinephric fat stranding, no hydronephrosis. There is mild bilateral ureteral dilatation down to the bladder and enlarged prostate gland -strict I&O -avoid nephrotoxins -continue gentle IVF -follow renal function/lytes -await urology recommendation # acute urinary retention likely related to BPH -Schmidt catheter placed -Flomax 0.4 mg nightly -urology consult #HTN -bp reasonably controlled -continue isosorbide, metoprolol. Hold Entresto in setting of BRODY # CAD/HLD -no chest pain -continue DAPT (cardiac cath 12/2021), statin, beta-alena #External hemorrhoids -proctofoam bid #Chronic hyperbilirubinemia - baseline, due to gilbert syndrome DVT prophyalxis- Lovenox Full code Patient requires ongoing inpt stay due to BRODY, pyelonephritis with sepsis, clinical picture improving but will continue iv abx at least another 24 hours given initial clinical presentation with sepsis to monitor for decompensation while awaiting final cultures and expert consulation Quality Stroke Does the patient have a stroke diagnosis?: No VTE Prior VTE?: No VTE Risk Level:: Medical - moderate - high VTE Device Contraindication: Treatment Not Indicated VTE Drug Contraindication: N/A - Med Ordered
[2023-10-10 07:55] VITALS: BP 142/84; PULSE 94; RESP 16; TEMP 36.3; O2SAT 97
[2023-10-10] MEDS: Clopidogrel Bisulfate 75 MG TABLET PO (08:53)
[2023-10-10] MEDS: Isosorbide Mononitrate 30 MG TAB.ER.24H PO (08:53)
[2023-10-10] MEDS: Aspirin Enteric Coated 81 MG TABLET.DR PO (08:53)
[2023-10-10] MEDS: Metoprolol Succinate ER 25 MG TAB.ER.24H PO (08:53)
[2023-10-10] MEDS: Cholecalciferol (Vitamin D3) 25 MCG TABLET PO (08:53)
[2023-10-10] MEDS: Hydrocortisone 2.5 % Rectal Cr 30 GM TUBE 1 APPL PR ×2 (08:54→20:07)
[2023-10-10 15:29] VITALS: BP 125/76; PULSE 63; RESP 16; TEMP 36.4; O2SAT 96
[2023-10-10] MEDS: 0.9 % Sodium Chloride Flush 3 ML SYRINGE IVFLUSH ×2 (16:14→20:07)
[2023-10-10] MEDS: cefTRIAXone sodium 1 GM in 0.9 % Sodium Chloride 50 ML IV (16:14)
[2023-10-10] MEDS: Enoxaparin Sodium 40 MG/0.4 ML SYRINGE SUBCUT (16:14)
--- NOTE | 2023-10-10 16:21 | MHC.CM.PN ---
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
[2023-10-10 19:35] VITALS: BP 125/74; PULSE 73; RESP 16; TEMP 36.8; O2SAT 95
--- NOTE | 2023-10-10 20:05 | PM.UROCN ---
History of Present Illness Consult details Consult date: 10/10/23 Narrative: CC: Retention with UTI 62-year-old male. Known to Urology. Previously seen for hypogonadism. Recently seen at [facility] for urinary retention Catheter for 3-4 weeks then removed and Past voiding trial in office Presents to emergency room with increased frequency, urgency, suprapubic pressure Denied dysuria, hematuria or flank pain Infected urine CT scan with resolving pyelonephritis Admitting creatinine 1.6 Rincon catheter placed Resolution of WBC and creatinine improving Gram-negative rods on microbiology however not yet speciated Will switch to oral meds once speciated Two week follow-up voiding trial. Will need office cystoscopy. Review of Systems Constitutional: Constitutional: Reports as per HPI and Reports no additional constitutional complaints Cardiovascular: Cardiovascular: Reports as per HPI and Reports no additional cardiovascular complaints Respiratory: Respiratory: Reports as per HPI and Reports no additional respiratory complaints Gastrointestinal: Gastrointestinal: Reports as per HPI and Reports no additional gastrointestinal complaints Genitourinary: Genitourinary: Reports as per HPI Musculoskeletal: Musculoskeletal: Reports no additional musculoskeletal complaints and Reports as per HPI Neurologic: Reports system reviewed and no additional complaints, except as documented and Reports as per HPI PMFSH Past Medical History Medical History Low testosterone in male HLD (hyperlipidemia) HTN (hypertension) CAD (coronary artery disease) Family History Family History Mother Cancer Diabetes HTN (hypertension) Father HTN (hypertension) Surgical History Surgical History Hx of cardiac cath Stented coronary artery (~05/2019) Social History Social History Household Members: Spouse Housing: House Do you presently have visiting nurse or other home services: No Alcohol intake: never Patient Tobacco Use Status: Never used Tobacco e-Cigarette/Vaping Use: Never Used Second Hand Smoke Exposure: Yes (as a child) Use of substances other than those prescribed or required for medical reasons: No Currently Displaying Signs/Symptoms of Drug Intoxication Withdrawal: No Have you been hit, kicked, punched, or otherwise hurt by someone within the past year? If so, by whom?: No Do you feel safe in your current relationship?: Yes Is there a partner from a previous relationship who is making you feel unsafe now?: No Are you made to feel afraid or neglected: No Advance Directives: No Advance Directives Information Provided: Yes Do you have thoughts of harming others: None Do you have a plan to hurt others: No Plan Recently lost weight without trying: No Nutrition Risks: No Nutritional Risk Poor oral hygiene: No Current occupational status: employed Current occupation: [employer] Cognitive needs: No Hearing needs: No Vision needs: Yes Meds Allergies Allergy/AdvReac Type Severity Reaction Status Date / Time niacin Allergy Unknown high doses Verified 10/09/23 10:14 - cause lip swelling, blurred vision Penicillins AdvReac Severe Diarrhea Verified 10/09/23 10:14 Active Medications: Current Medications Acetaminophen (Acetaminophen 325 Mg Tablet) 650 mg PO Q6H PRN PRN Reason: Pain, Mild (Pain Scale 1-3) Last Admin: 10/10/23 03:17 Dose: 650 mg Aspirin (Aspirin Enteric Coated 81 Mg Tablet.Dr) 81 mg PO DAILY [facility] Last Admin: 10/10/23 08:53 Dose: 81 mg Clopidogrel Bisulfate (Clopidogrel Bisulfate 75 Mg Tablet) 75 mg PO DAILY [facility] Last Admin: 10/10/23 08:53 Dose: 75 mg Enoxaparin Sodium (Enoxaparin Sodium 40 Mg/0.4 Ml Syringe) 40 mg SUBCUT Q24H STEVE Last Admin: 10/10/23 16:14 Dose: 40 mg Hydrocortisone (Hydrocortisone 2.5 % Rectal Cr 30 Gm Tube) 1 appl [place] BID [facility] Last Admin: 10/10/23 08:54 Dose: 1 appl Ceftriaxone Sodium 1 gm/ (Sodium Chloride) 50 mls @ 100 mls/hr IV Q24H [facility] Last Infusion: 10/10/23 16:45 Dose: Infused Isosorbide Mononitrate (Isosorbide Mononitrate 30 Mg Tab.Er.24h) 30 mg PO DAILY [facility]; Protocol Last Admin: 10/10/23 08:53 Dose: 30 mg Metoprolol Succinate (Metoprolol Succinate Er 25 Mg Tab.Er.24h) 25 mg PO DAILY [facility]; Protocol Last Admin: 10/10/23 08:53 Dose: 25 mg Ondansetron HCl (Ondansetron Hcl 4 Mg/2 Ml Vial) 4 mg IVPUSH Q8H PRN PRN Reason: Nausea and Vomiting Senna (Sennosides 8.6 Mg Tablet) 17.2 mg PO BEDTIME PRN PRN Reason: Constipation Sodium Chloride (0.9 % Sodium Chloride Flush 3 Ml Syringe) 3 ml IVFLUSH QSHIFT [facility] Last Admin: 10/10/23 16:14 Dose: 3 ml Tamsulosin HCl (Tamsulosin Hcl 0.4 Mg Capsule) 0.4 mg PO BEDTIME [facility] Last Admin: 10/09/23 20:59 Dose: 0.4 mg Vitamin D (Cholecalciferol (Vitamin D3) 25 Mcg Tablet) 25 mcg PO DAILY [facility] Last Admin: 10/10/23 08:53 Dose: 25 mcg Home Medications ?Medication ?Instructions ?Recorded ?Confirmed ?Last Taken ?Type cholecalciferol (vitamin D3) 25 25 mcg PO DAILY 05/27/20 10/09/23 Unknown History mcg (1,000 unit) capsule aspirin 81 mg tablet,delayed 81 mg PO DAILY 05/26/23 10/09/23 Unknown History release (Adult Aspirin Regimen) testosterone enanthate 50 mg/0.5 50 mg subcut SOLANO 10/09/23 10/09/23 Unknown History mL subcutaneous auto-injector (Xyosted) Physical Exam Vital Signs: Vital Signs: Last Vital Signs Temp 98.2 F 10/10/23 19:35 Pulse 73 10/10/23 19:35 Resp 16 10/10/23 19:35 BP 125/74 10/10/23 19:35 Pulse Ox 95 10/10/23 19:35 O2 Del Method Room Air 10/10/23 19:35 O2 Flow Rate 97 10/10/23 07:55 BMI result Body Mass Index 32.7 Const: General: cooperative, healthy appearing, comfortable and no acute distress Orientation/consciousness: patient oriented x3 HEENT: Face and sinus: Yes normal facial exam Mouth: moist mucous membranes Neck: Neck: Yes normal visual inspection, Yes full ROM and Yes trachea midline Chest: Chest palpation & inspection: normal inspection of the chest Resp: Effort & Inspection: normal respiratory effort, able to speak in complete sentences and no respiratory distress GI: Inspection: Yes normal to inspection Back/Spine/Pelvis: Cervical Spine: normal cervical lordosis Thoracic/Lumbar Spine: thoracic and lumbar spine normal to inspection Skin: General skin exam: no rashes or lesions noted Neuro: General: patient oriented x3, tone normal and moves all extremities Extrem: General: Yes normal to inspection and Yes capillary refill normal Results Labs 10/10/23 05:59 10/10/23 05:59 Labs: Abnormal lab results 10/10/23 Range/Units 05:59 RBC 5.91 H (4.60-5.80) X10*6/uL Immature Gran % (Auto) 0.6 H (0.0-0.4) % Lymph % (Auto) 19.6 L (20-40) % Abs Immat Gran (auto) 0.05 H (0.00-0.03) X10*3/uL Short CBC 10/10/23 Range/Units 05:59 WBC 8.1 (4.8-10.8) X10*3/uL Hgb 17.3 (14.0-18.0) g/dl Hct 51.7 (42.0-52.0) % Plt Count 165 (160-400) X10*3/uL BMP 10/10/23 05:59 Sodium 143 Potassium 3.8 Chloride 107 Carbon Dioxide 28 BUN 13 Creatinine 0.85 Calcium 9.2 D Urine 10/09/23 Range/Units 12:55 Urine Color Yellow Urine Appearance Cloudy Urine pH 5.5 (5.0-9.0) Ur Specific [place] 1.010 (1.005-1.025) Urine Protein Negative (Neg-Trace) mg/dL Urine Glucose (UA) Negative (Negative) mg/dL All other labs normal. Assessment and Plan (1) Urinary retention: Status: Acute (2) Pyelonephritis due to Escherichia coli: Status: Acute Plan Optimize BPH meds Two to three-week follow-up cystoscopy Procedures Date of Service Date of Service: 10/10/23
[2023-10-10] MEDS: Tamsulosin HCL 0.4 MG CAPSULE PO (20:07)
[2023-10-10] MEDS: Doxazosin Mesylate 2 MG TABLET 8 MG PO (20:41)
[2023-10-11 03:07] VITALS: BP 115/69; PULSE 93; RESP 16; TEMP 36.2; O2SAT 95
[2023-10-11 05:56] LABS: Anion Gap 11 (12-20); Blood Urea Nitrogen 16 mg/dL (9-16); Calcium 9.4 mg/dL (8.4-10.2); Carbon Dioxide 28 mmol/L (22-29); Chloride 106 mmol/L (96-108); Creatinine Clr Calc Pharmacy 104.6; Estimated Glomerular Filt Rate > 60; Glucose Random 111 mg/dL (60-115); Potassium 3.9 mmol/L (3.3-5.1); Sodium 141 mmol/L (135-145)
[2023-10-11] MEDS: Metoprolol Succinate ER 25 MG TAB.ER.24H PO (08:42)
[2023-10-11] MEDS: Aspirin Enteric Coated 81 MG TABLET.DR PO (08:42)
[2023-10-11] MEDS: Clopidogrel Bisulfate 75 MG TABLET PO (08:42)
[2023-10-11] MEDS: 0.9 % Sodium Chloride Flush 3 ML SYRINGE IVFLUSH ×3 (08:42→21:30)
[2023-10-11] MEDS: Finasteride 5 MG TABLET PO (08:43)
[2023-10-11] MEDS: Isosorbide Mononitrate 30 MG TAB.ER.24H PO (08:43)
[2023-10-11] MEDS: Cholecalciferol (Vitamin D3) 25 MCG TABLET PO (08:43)
[2023-10-11] MEDS: Hydrocortisone 2.5 % Rectal Cr 30 GM TUBE 1 APPL PR (08:46)
[2023-10-11 11:53] VITALS: BP 129/63; PULSE 71; RESP 18; TEMP 36; O2SAT 94
--- NOTE | 2023-10-11 13:26 | P.DS_ITS ---
DS: Providers Provider Date of Service: 10/11/23 Date of admission: 10/09/23 15:24 Date of discharge: 10/11/23 Primary care physician: Isamar Ramírez MD Consults: 10/09/23 15:23 Consult to Urology Routine Consulting Provider: Min Singh Reason for consultation: urinary retention Attending physician on discharge: Jeramie Rowland Discharging clinician: Jeramie Rowland DS: Diagnosis Discharge Diagnosis (1) Urinary retention: Status: Acute (2) Pyelonephritis due to Escherichia coli: Status: Acute DS: Summary Hospital Course Hospital Course: 62-year-old male with history of hypertension, CAD s/p PCI 2021, hyperlipidemia, hypogonadism, unspecified urinary retention with Schmidt catheter discontinued 5 days ago presented due to increased frequency of urination with urgency and suprapubic pressure ongoing for 5 days. He was recently seen at [facility] for urinary retention where he had Schmidt catheter placed which was removed 5 days ago. He denies any dysuria, hematuria, flank pain. No nausea or vomiting. He is also reporting rectal discomfort and external hemorrhoids. Denies any fevers, chills, melena, hematochezia, lightheadedness, palpitations, shortness of breath, chest pain. He does not feel that his urinary stream is weak nor does he feel like he is experiencing incomplete bladder emptying. On arrival, vital signs stable except for initial tachycardia which has resolved. 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 In the ED, has a leukocytosis of 13.4 with H/H 8.8/53.8%. Creatinine 1.67, BUN 19. Electrolyte levels normal. Lactic acid 1.3. Total bilirubin 3.3 which is chronic likely related to Gilbert disease. Urinalysis significant for 3+ leukocytes, 2+ blood, positive urinary sediment and trace bacteria. CT abdomen/pelvis shows Schmidt catheter correctly placed in bladder with 3 mm bladder stone. Kidneys are upper normal sized with possible renal cortical thickening and increased perinephric fat stranding without any hydronephrosis. There is mild bilateral ureteral dilatation down to the bladder as well as enlarged prostate gland. In the ED has received 2.9 L IVF and 1 g ceftriaxone. Hospital course: patient admitted for sepsis ,acute pyelonephritis ,also has urinary retention: started on iv antibiotics(iv ceftriaxone) ,schmidt , blood culture and urine cultures sent-Patient urine culture grew -klebsiella pneumonia(senstive to ceftriaxone) ,blood cultures negative @24 hrs , switched to po ceftin 500 mg po bid 13 days and follow up with urology outpatient. Leukocytosis resolved, no fever, blood culture negative at 48 hours.no pain. BRODY improved with hydration. for urinary retention/bph: on dexazosin/finesteride , continue schmidt for 2 week and follow up with urology outpatient. plan: complete po ceftin 500 mg po bid 13 days and follow up with urology outpatient. continue dexazosin/finesteride as prescribed,continue schmidt for 2 week and follow up with urology outpatient. Above management discussed with the patient detail length he understand and in agreement with the plan, time spent 35 minute. Time Attestation Total time managing care of this patient today: 35 mintues. Discharge Coordination Time (in mins): 35 min Quality: Safe Use of Opioids Does Pt have an Active Cancer Diagnosis on the Problem List?: No Quality: Stroke Does the patient have a stroke diagnosis?: No Physical Exam Vital Signs: Vital Signs: Last Vital Signs Temp 96.8 F 10/11/23 11:53 Pulse 71 10/11/23 11:53 Resp 18 10/11/23 11:53 BP 129/63 10/11/23 11:53 Pulse Ox 94 10/11/23 11:53 O2 Del Method Room Air 10/11/23 11:53 O2 Flow Rate 97 10/10/23 07:55 BMI result Body Mass Index 32.7 Appearance: Alert.? Oriented X3.? cvs: rrr, [id number] , no murmur res: clear to auscultation ,no rhonchii or wheezing abd: no rebound or guarding ,nt, bs present. ext pulses present , no cyanosis . neuro: axo3 , nonfocal. DS: Data Data Completed and Pending Labs on day of discharge: Laboratory Results - last 24 hr 10/11/23 05:26 Hold Purple Top SEE NOTE Sodium 141 Potassium 3.9 Chloride 106 Carbon Dioxide 28 Anion Gap 11 L BUN 16 Creatinine 0.85 Estim Creat Clear Calc 104.6 Estimated GFR > 60 Random Glucose 111 Calcium 9.4 Preliminary micro results at discharge 10/09/23 13:51 Blood Culture - Preliminary Blood - Venous No growth after 24 hours. 10/09/23 13:45 Blood Culture - Preliminary Blood - Venous No growth after 24 hours. Imaging Chest x-ray: Radiologist's impression: ITS Impressions Abdomen/Pelvis CT 10/09/23 14:10 IMPRESSION: Schmidt catheter in the bladder. 3 mm bladder stone. Upper normal-sized kidneys with question renal cortical thickening and increased perinephric fat stranding. No hydronephrosis. Mild bilateral ureteral dilatation down to the bladder. Enlarged prostate gland. Fleischner guidelines were followed. Discharge Plan Discharge Anticipated Discharge Date/Time: 10/11/23 13:13 Patient Disposition: Home Health Service Discharge Diagnosis: acute uti Referrals: Min Singh MD [Physician] - 1 Week Isamar Ramírez MD [Primary Care Provider] - 1 Week Discharge Medications: New sennosides [Senna Lax] 8.6 mg Tablet 17.2 mg PO BEDTIME PRN (Reason: Constipation) Qty: 30 0RF hydrocortisone [Proctozone-HC] 2.5 % Cream With Perineal Applicator 1 appl [place] BID Qty: 1 0RF finasteride 5 mg Tablet 5 mg PO DAILY Qty: 60 0RF doxazosin 2 mg Tablet 8 mg PO BEDTIME Qty: 60 0RF Protocol: Hold for SBP< HOLD for SBP < : 90 cefuroxime axetil 500 mg Tablet 500 mg PO Q12H Qty: 26 0RF Continued isosorbide mononitrate 30 mg tablet extended release 24 hr 30 mg PO DAILY Qty: 90 3RF clopidogrel 75 mg tablet 75 mg PO DAILY Qty: 90 3RF Entresto 24-26 mg tablet 1 tab PO BID Qty: 180 3RF Xyosted 50 mg/0.5 mL auto-injector 50 mg subcut SOLANO cholecalciferol (vitamin D3) 25 mcg (1,000 unit) capsule 25 mcg PO DAILY aspirin [Adult Aspirin Regimen] 81 mg tablet,delayed release (DR/EC) 81 mg PO DAILY metoprolol succinate 25 mg tablet extended release 24 hr 25 mg PO DAILY Qty: 90 3RF Rx Instructions: dose reduced Held nitrofurantoin monohyd/m-cryst [Macrobid] 100 mg capsule 100 mg PO BID 5 Days Qty: 10 0RF Hold Instructions: Resume on 10/25/23. Rx Instructions: must administer with a meal/food Discharge Orders: Discharge Order (Routine); Ordered 10/12/23 Ordered By: Jeramie Rowland Diet: Advance to usual diet Activity on Discharge: As tolerated Stand Alone Forms: Patient Portal Discharge page, Work/School Release Print Language: Khmer Care Plan Goals: patient admitted forsepsis ,acute pyelonephritis ,also has urinary retention: started on iv antibiotics(iv ceftriaxone) ,schmidt , blood culture and urine cultu res sent-Patient urine culture grew -klebsiella pneumonia(senstive to ceftriaxone) ,blood cultures negative @24 hrs , switched to po ceftin 500 mg po bid 13 days and follow up with urology outpatient. for urinary retention/bph: on dexazosin/finesteride , continue schmidt for 2 week and follow up with urology outpatint. Health Concerns: schmidt: may flush with 30-60cc sterile water PRN for blockage or increased sedement. May replace with _FR if dislodged or PRN Q 4 weeks, please Thank you Plan of Treatment: as above. Assessment: as above. Patient Instructions: Urinary Retention in Men (GEN), Urinary Tract Infection in Men (GEN), Schmidt Catheter Placement and Care (DC), Bladder Stones (GEN) Discharge Date/Time: 10/12/23 12:30
[2023-10-11] MEDS: Enoxaparin Sodium 40 MG/0.4 ML SYRINGE SUBCUT (14:23)
[2023-10-11] MEDS: cefuroxime axetiL 500 MG TABLET PO (14:23)
--- NOTE | 2023-10-11 14:48 | HO.PM.IMPN ---
Subjective Subjective Date of Service: 10/11/23 Interval History: sepsis ,uti Review of Systems has pain no fevers no sob Physical Exam Vital Signs: Vital Signs: Last Vital Signs Temp 96.8 F 10/11/23 11:53 Pulse 71 10/11/23 11:53 Resp 18 10/11/23 11:53 BP 129/63 10/11/23 11:53 Pulse Ox 94 10/11/23 11:53 O2 Del Method Room Air 10/11/23 11:53 O2 Flow Rate 97 10/10/23 07:55 BMI result Body Mass Index 32.7 Appearance: Alert.? Oriented X3.? cvs: rrr, [id number] , no murmur res: clear to auscultation ,no rhonchii or wheezing abd: no rebound or guarding ,nt, bs present. :flank pains ext pulses present , no cyanosis . neuro: axo3 , nonfocal. Objective Data Active Medications Acetaminophen (Acetaminophen 325 Mg Tablet) 650 mg PO Q6H PRN PRN Reason: Pain, Mild (Pain Scale 1-3) Last Admin: 10/10/23 03:17 Dose: 650 mg Documented By: GABI Aspirin (Aspirin Enteric Coated 81 Mg Tablet.Dr) 81 mg PO DAILY [facility] Last Admin: 10/11/23 08:42 Dose: 81 mg Documented By: ROMEO Cefuroxime Axetil (Cefuroxime Axetil 500 Mg Tablet) 500 mg PO Q12H [facility] Last Admin: 10/11/23 14:23 Dose: 500 mg Documented By: ROMEO Clopidogrel Bisulfate (Clopidogrel Bisulfate 75 Mg Tablet) 75 mg PO DAILY [facility] Last Admin: 10/11/23 08:42 Dose: 75 mg Documented By: ROMEO Doxazosin Mesylate (Doxazosin Mesylate 2 Mg Tablet) 8 mg PO BEDTIME [facility]; Protocol Last Admin: 10/10/23 20:41 Dose: 8 mg Documented By: GABI Enoxaparin Sodium (Enoxaparin Sodium 40 Mg/0.4 Ml Syringe) 40 mg SUBCUT Q24H [facility] Last Admin: 10/11/23 14:23 Dose: 40 mg Documented By: ROMEO Finasteride (Finasteride 5 Mg Tablet) 5 mg PO DAILY [facility] Last Admin: 10/11/23 08:43 Dose: 5 mg Documented By: ROMEO Hydrocortisone (Hydrocortisone 2.5 % Rectal Cr 30 Gm Tube) 1 appl KS BID [facility] Last Admin: 10/11/23 08:46 Dose: 1 appl Documented By: ROMEO Isosorbide Mononitrate (Isosorbide Mononitrate 30 Mg Tab.Er.24h) 30 mg PO DAILY [facility]; Protocol Last Admin: 10/11/23 08:43 Dose: 30 mg Documented By: ROMEO Metoprolol Succinate (Metoprolol Succinate Er 25 Mg Tab.Er.24h) 25 mg PO DAILY [facility]; Protocol Last Admin: 10/11/23 08:42 Dose: 25 mg Documented By: ROMEO Ondansetron HCl (Ondansetron Hcl 4 Mg/2 Ml Vial) 4 mg IVPUSH Q8H PRN PRN Reason: Nausea and Vomiting Senna (Sennosides 8.6 Mg Tablet) 17.2 mg PO BEDTIME PRN PRN Reason: Constipation Sodium Chloride (0.9 % Sodium Chloride Flush 3 Ml Syringe) 3 ml IVFLUSH QSHIFT [facility] Last Admin: 10/11/23 08:42 Dose: 3 ml Documented By: ROMEO Vitamin D (Cholecalciferol (Vitamin D3) 25 Mcg Tablet) 25 mcg PO DAILY [facility] Last Admin: 10/11/23 08:43 Dose: 25 mcg Documented By: ROMEO Labs 10/10/23 05:59 10/11/23 05:26 Labs: Laboratory Results - last 24 hr 10/11/23 05:26 Hold Purple Top SEE NOTE Anion Gap 11 L Estim Creat Clear Calc 104.6 Estimated GFR > 60 Random Glucose 111 Calcium 9.4 Microbiology Microbiology Results: Microbiology 10/09/23 Unknown Urine Culture - Final Urine clean catch - Urine padilla top Klebsiella pneumoniae 10/09/23 13:51 Blood Culture - Preliminary Blood - Venous No growth after 24 hours. 10/09/23 13:45 Blood Culture - Preliminary Blood - Venous No growth after 24 hours. Assessment and Plan (1) Acute UTI: Status: Acute (2) Urinary retention: Status: Acute (3) Sepsis: Status: Acute Plan 62-year-old male with history of hypertension, CAD s/p PCI 2021, hyperlipidemia, hypogonadism, unspecified urinary retention with Schmidt catheter discontinued 5 days ago admitted for BRODY secondary to obstructive uropathy and UTI. acute pyelonephritis with sepsis on admission -CT with evidence of perinephric fat stranding. Patient with noted rigors but afebrile. Leukocytosis of 13.4, mild tachycardia. BRODY related to above, not severe sepsis. Lactic acid normal. No hypotension. Sepsis resolved 10/09 -dc IVF -IV ceftriaxone 2g 10/08, decrease to 1mg ctx 10/09 due to significantly improved clinical presentation -follow renal function -follow cbc, cultures acute kidney injury-likely postrenal due to enlarged prostate- resolved -Schmidt catheter placed. Creat now baseline 0.85 -CT abdomen/pelvis shows Schmidt catheter in the bladder with 3 mm bladder stone and upper normal-sized kidneys with question of renal cortical thickening and increased perinephric fat stranding, no hydronephrosis. There is mild bilateral ureteral dilatation down to the bladder and enlarged prostate gland -strict I&O -avoid nephrotoxins -continue gentle IVF -follow renal function/lytes -await urology recommendation acute urinary retention likely related to BPH -Schmidt catheter placed -Flomax 0.4 mg nightly urology consult-continue ivf antibiotics ,schmidt keep for 2 weeks ,urine culture reviewed,blood cultures pending HTN-bp reasonably controlled -continue isosorbide, metoprolol. Hold Entresto in setting of BRODY CAD/HLD-no chest pain -continue DAPT (cardiac cath 12/2021), statin, beta-alena External hemorrhoids -proctofoam bid Chronic hyperbilirubinemia - baseline, due to gilbert syndrome DVT prophyalxis- Lovenox Full code Patient requires ongoing inpt stay due to BRODY, pyelonephritis with sepsis, clinical picture improving but will continue iv abx at least another 24 hours given initial clinical presentation with sepsis to monitor for decompensation while awaiting final cultures and expert consulation Quality Stroke Does the patient have a stroke diagnosis?: No VTE Prior VTE?: No VTE Risk Level:: Medical - moderate - high VTE Device Contraindication: Treatment Not Indicated VTE Drug Contraindication: N/A - Med Ordered
[2023-10-11 19:24] VITALS: BP 112/70; PULSE 57; RESP 16; TEMP 36.3; O2SAT 96
[2023-10-11] MEDS: Doxazosin Mesylate 2 MG TABLET 8 MG PO (21:30)
[2023-10-12] MEDS: cefuroxime axetiL 500 MG TABLET PO (01:12)
[2023-10-12 03:33] VITALS: BP 144/81; PULSE 77; RESP 18; TEMP 36.2; O2SAT 96
[2023-10-12 08:02] VITALS: BP 134/79; PULSE 99; RESP 16; TEMP 36.6; O2SAT 97
--- NOTE | 2023-10-12 08:23 | P.PNUR_ITS ---
Subjective Subjective Date of Service: 10/12/23 Interval history: Klebsiella bactrim and levaquin sensitive Could discharge with 2 weeks of antibiotics and plan for voiding trial next week Physical Exam 2 Vital Signs: Vital Signs: Last Vital Signs Temp 97.8 F 10/12/23 08:02 Pulse 99 10/12/23 08:02 Resp 16 10/12/23 08:02 BP 134/79 10/12/23 08:02 Pulse Ox 97 10/12/23 08:02 O2 Del Method Room Air 10/12/23 08:02 O2 Flow Rate 97 10/10/23 07:55 BMI result Body Mass Index 32.7 Urology Results Labs 10/10/23 05:59 10/11/23 05:26 Progress Note: A&P Assessment and plan (1) Pyelonephritis due to Escherichia coli: Status: Acute (2) Sepsis: Status: Acute Plan shift to oral antibiotics Time Spent With Patient Time: Total time managing care of this patient today ____ minutes. Progress Note: Quality Stroke Does the patient have a stroke diagnosis?: No
[2023-10-12] MEDS: Isosorbide Mononitrate 30 MG TAB.ER.24H PO (09:14)
[2023-10-12] MEDS: Metoprolol Succinate ER 25 MG TAB.ER.24H PO (09:14)
[2023-10-12] MEDS: Clopidogrel Bisulfate 75 MG TABLET PO (09:14)
[2023-10-12] MEDS: 0.9 % Sodium Chloride Flush 3 ML SYRINGE IVFLUSH (09:15)
[2023-10-12] MEDS: Finasteride 5 MG TABLET PO (09:15)
[2023-10-12] MEDS: Hydrocortisone 2.5 % Rectal Cr 30 GM TUBE 1 APPL PR (09:15)
[2023-10-12] MEDS: Aspirin Enteric Coated 81 MG TABLET.DR PO (09:15)
[2023-10-12] MEDS: Cholecalciferol (Vitamin D3) 25 MCG TABLET PO (09:15)
[2023-10-12 09:17] VITALS: BP 143/80; PULSE 99
--- NOTE | 2023-10-12 11:03 | W.MHC.F2F ---
Service Date Service Date: 10/12/23 Encounter Date of encounter: 10/12/23 Encounter: Pyelonephritis, sepsis Reasons for Services Signs and symptoms assessed: abd pain or fever or urinary syptoms Reason for long term: medication management, medication treatment, teach disease management and GI/ assessment (schmidt management) Overseeing Care: Isamar Ramírez Homebound: Leaving the home is medically contraindicated at this time without the asist of a device and/or another person due th the listed conditions above and below. Reason homebound: weakness related to hospital stay and other (schmidt management) Homebound supporting statement: Patient has multiple comorbidities including pyelonephritis , urinary retention-need help with the appointment, Schmidt management. Certification: Based on the above findings, I certify that this patient is confined to the home and needs intermittent long term care, physical therapy and/or speech therapy, or continues to need occupational therapy. The patient is under my care, and I have initiated the establishment of the plan of care. The patient will be followed by a physician who will periodically review the plan of care. Time Spent With Patient Time: Total time managing care of this patient today ____ minutes.
== END 2023-10-12 12:30 | disposition home health service (06) | DRG 720 ==
LOC: HO.ED 15:14 → HO.EDOVER 15:37 → HO.S3 16:54
PROVIDERS: Physician Assistant; Admitting Provider Physician Assistant; Emergency Provider Emergency Medicine Emergency Medical Services; PCP Internal Medicine; Visit Provider Internal Medicine
DX: A41.9 Sepsis, unspecified organism (principal); N17.9 Acute kidney failure, unspecified; N40.1 Benign prostatic hyperplasia with lower urinary tract symptoms; R33.8 Other retention of urine; I10 Essential (primary) hypertension; B96.1 Klebsiella pneumoniae [K. pneumoniae] as the cause of diseases classified elsewhere; K64.4 Residual hemorrhoidal skin tags; N21.0 Calculus in bladder; N10 Acute pyelonephritis; I25.10 Atherosclerotic heart disease of native coronary artery without angina pectoris; E78.5 Hyperlipidemia, unspecified; E80.4 Gilbert syndrome; Z95.5 Presence of coronary angioplasty implant and graft; Z79.82 Long term (current) use of aspirin; Z79.899 Other long term (current) drug therapy
CPT/HCPCS: 36415; 74176; 80048; 80053; 81001; 81003; 83605; 85025; 87040; 87086; 87088; 87186; 99285; C1758; J0696; J1650

== ENCOUNTER → 2023-10-09 15:24 | Outpatient (BNV) | payer BC, SELFPAY | PROVIDERS: Admitting Provider Physician Assistant; Emergency Provider Emergency Medicine Emergency Medical Services; PCP Internal Medicine; Visit Provider Physician Assistant | DX: A41.9 Sepsis, unspecified organism (principal); N39.0 Urinary tract infection, site not specified; R33.9 Retention of urine, unspecified | CPT/HCPCS: 99223; 99231; 99232; 99239; G0180 ==

== ENCOUNTER → 2023-10-09 15:24 | Outpatient (BNV) | payer BC, SELFPAY | PROVIDERS: Admitting Provider Physician Assistant; Emergency Provider Emergency Medicine Emergency Medical Services; PCP Internal Medicine; Visit Provider Urology | DX: N12 Tubulo-interstitial nephritis, not specified as acute or chronic (principal); B96.20 Unspecified Escherichia coli [E. coli] as the cause of diseases classified elsewhere; A41.9 Sepsis, unspecified organism | CPT/HCPCS: 99222; 99232 ==

== ENCOUNTER 2023-10-27 09:22 | Outpatient (AMB) | payer BC, SELFPAY ==
--- NOTE | 2023-10-27 09:43 | A.OFFVIS_ITS ---
Intake Visit Reasons: VT/cysto Intake Note: Patient is Present for Cystoscopy/Voiding Trial Urology Med: Doxazosin, Xyosted, Finasteride Antibiotic Allergy: Penicillins Blood Thinner: Aspirin, Clopidogrel URO- G Disposable Cystoscope lot: [id number] exp:05/06/2026 PVR: 299- Patient states he does not feel the urge standing, he feels the urge to urinate when he sits down Allergies niacin Allergy (Unknown, Verified 10/27/23 09:48) high doses - cause lip swelling, blurred vision Penicillins Adverse Reaction (Severe, Verified 10/27/23 09:48) Diarrhea HPI Comments Details: Cory is a very pleasant male. He is a patient of Dr. Ramírez. He is here for the following urologic conditions - hypogonadism Had episode of urinary retention in hospital Rincon catheter placed Complicated by urinary tract infection Cystoscopy performed Failed voiding trial Plan for GreenLight laser Has been taught CIC in the meantime Has neurogenic bladder with inability to empty bladder for foreseeable future. Will require CIC 4 times per day. Hypogonadism Symptomatic decline in libido Decreased strength Lack of energy Injection day Wednesday Lab work T 12/16 195, 08/19 T 870 P 3.2 H 53.6, 03/19 755 1.9 56, 06/18 T 626 H 55.8, 01/17 T 219 1.7 51.5, 07/21 1100 2.7 hct 57 Had altered dosage secondary to increasing hematocrit Associated comorbidities include cardiovascular disease - prior [place] and revascularization, diabetes - 01/15 T 500 - other baseline labs - FSH 10.9 - suggestive of testicular decreased hormone sensitivity Failed injectable secondary to high hematocrit. Unable to get zyosted Would recommend gel. Erectile dysfunction Unable to take PDE use since on isosorbide PFSH Medical History Low testosterone in male HLD (hyperlipidemia) HTN (hypertension) CAD (coronary artery disease) Surgical History Hx of cardiac cath Stented coronary artery (~05/2019) Family History Mother Cancer Diabetes HTN (hypertension) Father HTN (hypertension) Social History Household Members: Spouse Housing: House Do you presently have visiting nurse or other home services: No Alcohol intake: never Patient Tobacco Use Status: Never used Tobacco e-Cigarette/Vaping Use: Never Used Second Hand Smoke Exposure: Yes (as a child) service: No Current occupational status: employed Current occupation: [employer] Cognitive needs: No Hearing needs: No Vision needs: Yes Review of Systems Const Denies chills and Denies fever(s) Card Reports no additional complaints and Denies syncope Resp Denies cough GI Denies abdominal pain and Denies heartburn Reports as per HPI and Denies change in libido Neuro Denies syncope Psych Denies change in libido Endo Denies change in libido Physical Exam Const General: cooperative, healthy appearing, comfortable and no acute distress Orientation/consciousness: patient oriented x3 HEENT Face and sinus: Yes normal facial exam Mouth: moist mucous membranes Neck Neck: Yes normal visual inspection, Yes full ROM and Yes trachea midline Chest Chest palpation & inspection: normal inspection of the chest Resp Effort & Inspection: normal respiratory effort, able to speak in complete sentences and no respiratory distress GI Inspection: Yes normal to inspection Back/Spine/Pelvis Cervical Spine: normal cervical lordosis Thoracic/Lumbar Spine: thoracic and lumbar spine normal to inspection Skin General skin exam: no rashes or lesions noted Neuro General: patient oriented x3, gait normal, tone normal and moves all extremities Extrem General: Yes normal to inspection and Yes capillary refill normal Office Procedures Cystoscopy Consent Discussed risk and benefit or proposed procedure with the patient. Information consent for procedure given to the patient. Discussed technical aspects, risks, benefits and alternatives in full. Addressed all of the patient's questions and concerns regarding the procedure. The patient demonstrated knowledge and understanding. They wish to proceed with this procedure. Preparation The patient was prepped in the usual manner. A bulk system operator was present and in the room. Genitalia was prepped with betadine solution in a sterile manner. Lidocaine Jelly 2% was placed into the urethra and 16Fr flexible Olympus cystoscope was inserted into the meatus after adequate lubrication. Procedure 18 fr catheter removed, patient tolerated well. Patient then prepped in usual fashion for cystoscopy procedure [id number] DISPOSABLE SCOPE URO-G FLEXIBLE SCOPE Procedure code (CPT) selection complete Post Void Residual Post Residual Void Details: PVR 299mls. Patient unable to fully empty bladder. Per Dr. Singh patient to do CIC 4 times a day. 14 fr coude straight catheter teaching provided, stressed importance of clean technique. Patient was able to understand all information, successfully did CIC in office and emptied bladder of 350mls of urine. Patient agreeable to do CIC 4 times a day until greenlight procedure as discussed in visit. Patient will call [facility] with preferred catheter type at end of day. Orders to be signed and faxed to [facility] from office Post Void Residual (PVR): 299 [id number] Void Residual by ultrasound Office Meds lidocaine HCl 2 % mucosal jelly in applicator Performing Provider: Min Singh MD Performing Location: [facility] [place] [facility] Administered by: Miguel Waller LPN on 10/27/23 09:56 Dose Route Admin Location Dispensed Lot Number Expiration Date [facility] [place] 10 mL intra-urethral 10 mL nitrofurantoin monohydrate/macrocrystals 100 mg capsule Performing Provider: Min Singh MD Performing Location: [facility] [place] [facility] Administered by: Miguel Waller LPN on 10/27/23 09:56 Dose Route Admin Location Dispensed Lot Number Expiration Date [place] Stone[employer]ter 100 mg PO 1 cap naproxen 500 mg tablet Performing Provider: Min Singh MD Performing Location: [facility] [place] [facility] Administered by: Miguel Waller LPN on 10/27/23 09:56 Dose Route Admin Location Dispensed Lot Number Expiration Date [place] Stone[employer] 500 mg PO 1 tab Assessment & Plan Assessment & Plan (1) Urinary retention: Code(s): R33.9 - Retention of urine, unspecified Category: Medical (2) Bladder stone: Code(s): N21.0 - Calculus in bladder Category: Medical (3) Pyelonephritis due to Escherichia coli: Code(s): N12 - Tubulo-interstitial nephritis, not specified as acute or chronic; B96.20 - Unspecified Escherichia coli [E. coli] as the cause of diseases classified elsewhere Category: Medical Plan Risks, benefits and alternatives to therapy were discussed. These include but are not limited to infection, bleeding, damage to local organs and tissues, need for further interventions. Anesthetic risks regarding cardiac arrhythmia, blood clots, and potential mortality were discussed. The patient understands the typical recovery time and the outpatient nature of the procedure. After consideration of these risks the patient gives full informed consent and they wish to move ahead with the procedure. GreenLight laser prostatectomy Orders: Orders AMB Cystoscopy Today R33.9 - Retention of urine, unspecified AMB Post Void Residual by ultrasound Today R33.9 - Retention of urine, unspecified Patient Instructions: Imaging studies, laboratory and physical exam results were discussed and reviewed in detail. No major barriers to patient understanding were identified. An opportunity to ask questions regarding the treatment plan was provided. All questions were answered. The patient expressed understanding and agreement with the above treatment plan. The patient is aware they should contact our office by phone for worsening of their current condition or the appearance of new urologic symptoms. Compliance is encouraged with any medications and followup testing that is ordered. It is a privilege to participate in the urologic care of your patient. If you have any questions or concerns regarding treatment for the above conditions, or other urologic issues, please do not hesitate to contact me. The office telephone contact is [phone]. This note is constructed using voice recognition software. While every effort has been made to ensure accuracy market editor errors may have been included. Yours sincerely, Dr Min Singh MD, [facility] - Urology Providers of Expert, Compassionate Care for the Genitourinary System Coding Level of Care Code Est Pt Level 4 (16567) Diagnoses Urinary retention R33.9 Bladder stone N21.0 Pyelonephritis due to Escherichia coli N12; B96.20 CPT Codes Cystoscopy - CPT: 11701-[id number] ([id number]) Post Residual Void - PVR CPT Code: 30707-Wmqj Void Residual by ultrasound ([id number])
== END 2023-10-27 10:49 | disposition home or self-care (01) ==
PROVIDERS: PCP Internal Medicine; Visit Provider Urology
DX: R33.9 Retention of urine, unspecified (principal); N21.0 Calculus in bladder; N12 Tubulo-interstitial nephritis, not specified as acute or chronic; B96.20 Unspecified Escherichia coli [E. coli] as the cause of diseases classified elsewhere
CPT/HCPCS: 52000; 99214

== ENCOUNTER → 2023-10-27 09:22 | Outpatient (BNVA) | payer BC, SELFPAY | PROVIDERS: PCP Internal Medicine; Visit Provider Urology | DX: R33.9 Retention of urine, unspecified (principal); N21.0 Calculus in bladder; N12 Tubulo-interstitial nephritis, not specified as acute or chronic; B96.20 Unspecified Escherichia coli [E. coli] as the cause of diseases classified elsewhere | CPT/HCPCS: 51798; 52000 ==

== ENCOUNTER 2023-11-20 07:01 | Outpatient (REF) | payer BC, SELFPAY ==
[2023-11-20 11:14] LABS: Hematocrit 51.5 % (42.0-52.0); Mean Corpuscular Hemoglobin 28.9 pg (27.0-33.0); Mean Corpuscular Volume 87.6 fL (80.0-98.0); Mean Platelet Volume 12.1 fL (9.4-12.4); Platelet Count 171 X10*3/uL (160-400); Red Blood Count 5.88 X10*6/uL (4.60-5.80); Red Cell Distribution Width 14.7 % (11.0-16.0); White Blood Count 5.8 X10*3/uL (4.8-10.8)
[2023-11-20 12:24] LABS: Prostate Specific Antigen 2.25 ng/mL (<0.05-4.0)
[2023-11-26 16:49] LABS: Testosterone, Free 67.9 pg/mL (35.0-155.0); Testosterone, Total 438 ng/dL (250-1100)
== END 2023-11-20 07:02 | disposition home or self-care (01) ==
LOC: HO.HMGCLDS 07:01
PROVIDERS: PCP Internal Medicine; Visit Provider Urology
DX: Z12.5 Encounter for screening for malignant neoplasm of prostate (principal); E11.69 Type 2 diabetes mellitus with other specified complication; N52.1 Erectile dysfunction due to diseases classified elsewhere
CPT/HCPCS: 36415; 84153; 84402; 84403; 85027

== ENCOUNTER 2023-11-29 08:40 | Outpatient (REF) | payer BC, SELFPAY ==
[2023-12-06 13:34] LABS: Testosterone, Free 25.3 pg/mL (35.0-155.0); Testosterone, Total 193 ng/dL (250-1100)
== END 2023-11-29 08:41 | disposition home or self-care (01) ==
LOC: HO.HMGCLDS 08:40
PROVIDERS: PCP Internal Medicine; Visit Provider Urology
DX: R79.89 Other specified abnormal findings of blood chemistry (principal)
CPT/HCPCS: 36415; 84402; 84403

== ENCOUNTER 2024-01-03 09:48 | Day surgery (SDC) | payer BC, SELFPAY ==
[2024-01-03] VITALS (8 sets, daily range): BP systolic 120–133; BP diastolic 77–86; PULSE 73–87; RESP 14–18; TEMP 36.3–36.9; O2SAT 93–99; BMI 31.7
--- NOTE | 2024-01-03 10:06 | P.CONAN_ITS ---
[facility] Active Problems Active Problems: oAll Active Problems Pyelonephritis due to Escherichia coli (Acute) Sepsis (Acute) Urinary retention (Acute) Bladder stone (Acute) Acute UTI (Acute) High hematocrit (Acute) Pain in right shoulder (Acute) Right shoulder strain (Acute) Nausea (Acute) Ear infection (Acute) Benign positional vertigo (Acute) Dizziness (Acute) Impaired fasting blood sugar (Acute) Elevated hemoglobin (Acute) Thrombocytopenia (Acute) Gilbert syndrome (Acute) Stable angina (Acute) URI (upper respiratory infection) (Acute) Colonoscopy refused (Acute) Acute pharyngitis (Acute) Fatigue (Acute) Cardiomyopathy (Acute) Hospital discharge follow-up (Acute) NSTEMI (non-ST elevation myocardial infarction) (Acute) S/P cardiac cath (Acute) Insomnia, unspecified (Acute) Sprain of left knee (Acute) Acute otitis media with effusion of both ears (Acute) COVID-19 virus infection (Acute) Lower thoracic back pain (Acute) Erectile dysfunction associated with type 2 diabetes mellitus (Acute) Preop cardiovascular exam (Acute) Calcific tendonitis of left shoulder (Acute) Major depressive disorder, recurrent, mild (Acute) Depression determined by examination (Acute) Positive depression screening (Acute) Shoulder pain, left (Acute) Obesity due to excess calories (Acute) Encounter for general adult medical examination with abnormal findings (Acute) Hypogonadism in male (Acute) Plantar wart of left foot (Acute) Lack of libido (Acute) Low testosterone in male (Acute) HLD (hyperlipidemia) (Acute) Hx of cardiac cath (Acute) Stented coronary artery (Acute ~05/2019) HTN (hypertension) (Acute) CAD (coronary artery disease) (Acute) Past Medical History Medical History Myocardial infarction Low testosterone in male HLD (hyperlipidemia) HTN (hypertension) CAD (coronary artery disease) Family History Family History Mother Cancer Diabetes HTN (hypertension) Father HTN (hypertension) Surgical History Surgical History Hx of inguinal hernia surgery Hx of appendectomy Hx of cardiac cath Stented coronary artery (~05/2019) History of Problems with Anesthesia: No Social History Social History Household Members: Spouse Housing: House Do you presently have visiting nurse or other home services: No Alcohol intake: never Patient Tobacco Use Status: Never used Tobacco e-Cigarette/Vaping Use: Never Used Second Hand Smoke Exposure: Yes (as a child) Use of substances other than those prescribed or required for medical reasons: No Are you DNR?: No Advance Directives: No Advance Directives Information Provided: Yes service: No Current occupational status: employed Current occupation: [employer] Cognitive needs: No Hearing needs: No Vision needs: Yes Meds Allergies Allergy/AdvReac Type Severity Reaction Status Date / Time niacin Allergy Unknown high doses Verified 10/27/23 09:48 - cause lip swelling, blurred vision Penicillins AdvReac Severe Diarrhea Verified 10/27/23 09:48 Home Medications ?Medication ?Instructions ?Recorded ?Confirmed ?Last Taken ?Type cholecalciferol (vitamin D3) 25 25 mcg PO DAILY 05/27/20 10/09/23 Unknown History mcg (1,000 unit) capsule aspirin 81 mg tablet,delayed 81 mg PO DAILY 05/26/23 10/09/23 Unknown History release (Adult Aspirin Regimen) atorvastatin 40 mg tablet 40 mg PO DAILY 10/27/23 Unknown History Exam Height,Weight and Vital Signs: Height 5 ft 8 in Weight 94.517 kg Airway Mallampati Class: III Neck ROM: Full Loose/Missing/Broken Teeth: Yes and Upper Heart: RRR Lungs: CTA Assessment and Plan Assessment Anesthesia Assessment: Anesthesia Plan Discussed and Chart Reviewed Final Anesthetic Review History of Problems with Anesthesia: No NPO: Yes ASA Class: III Final Preanesthetic Review: Meds/Allgs Chart Reviewed, Consent Obtained/Reviewed and Anes Risks/Benef Reviewed Patient Risk: Intermediate Procedure Risk: Low Anesthetic Plan Anesthetic Plan: GA Disposition: Standard PACU
--- NOTE | 2024-01-03 10:26 | MHC.SHP ---
Pre-Procedural Eval Section A - 24 Hr Update-Section A only Date of Service: 01/03/24 The patient is an INPATIENT: No Changes since office visit: No Cold of Flu in the past 2 weeks, No New Medical Problems, No Changes in Medication and No Patient answered all questions The patient has been examined within 24 hours of the surgical procedure. The History & Physical has been completed within 30 days and I have reviewed it.: Yes Section B - Complete if H&P > 30 days Chief Complaint: Retention of urine, unspecified Details of Present Illness: Retention in hospital, here for prostate procedure Relevant Family History (Specify if Yes): No Relevant Social History: None Present Medications: see Short Stay Collaborative assessment Medical History: No relevant PMH History of Previous Operations: No relevant previous surgery Allergies: Allergies Allergy/AdvReac Type Severity Reaction Status Date / Time niacin Allergy Unknown high doses Verified 10/27/23 09:48 - cause lip swelling, blurred vision Penicillins AdvReac Severe Diarrhea Verified 10/27/23 09:48 Review of Systems Sugical H&P ROS: Negative: Constitution, Cardiovascular, Respiratory, Neurological, Psychiatric, Hem-Onc, Allergic/Immunologic, Gastrointestinal, Genitourinary, Musculoskeletal, Integumentary, Endocrine and Eyes/Ears/Nose/Throat Exam Surgical H&P Exam: Normal: HEENT, Normal: Heart, Normal: Lungs, Normal: Extremities, Normal: Abdomen, Normal: Skin and Normal: Neurological Plan Diagnosis/Plan: Unchanged (GreenLight laser prostate) I have reviewed the history and physical and performed a pertinent physical examination on my patient. No changes have occurred unless specified. Time Spent With Patient Time: Total time managing care of this patient today ____ minutes.
[2024-01-03] MEDS: Lactated Ringers 1,000 ML 50 ML IVCONT (10:28)
--- NOTE | 2024-01-03 11:31 | P.OP_ITS ---
Operative Note Operative Note Date of Service: 01/03/24 Narrative: PreOperative Diagnosis: Bladder outlet obstruction Post Operative Diagnosis: Bladder outlet obstruction Procedure: GreenLight Laser Enucleation of the prostate CPT 00180 Surgeon: Dr Min Singh Anesthesia: General History of bladder outlet obstruction. Episode of retention with an hospital. Cystoscopy shows left prostatic lobar hypertrophy and bladder neck tightness Risks and benefits have been discussed. Focus was placed on development of retrograde ejaculation which is a normal part of this procedure. Procedure: After informed consent was verified the patient was brought to the operating room and placed in a supine position. Anesthesia was administered per protocol. Patient was placed in modified dorsal lithotomy position and prepped and draped in a sterile fashion. Safety pause time-out was confirmed. Antibiotics have been given. A Twenty-four Citizen Of [place] laser cystoscope was inserted per urethra. No abnormalities were found of the anterior and bulbar urethra. The prostatic urethra shows both lateral lobe crowding on the left side and bladder neck tightness. The bladder was examined and both ureteric orifices were seen in their normal positions away from the area of interest. Bladder trabeculation grade 2. Using a GreenLight laser with settings of 80 grant incisions were made at the 5 o'clock position. The incisions were taken down from the bladder neck down to the level of the veru. These were gradually deepened in order to define the lateral aspects of the median lobe area. Once clearly defined they will also extended in the lateral directions in order to create a deep groove. The laser was increased to 120 w Starting with the patient's left lateral lobe. First the 05:00 o'clock groove was further developed. This was moved in the lateral direction to undermine the tissue on the lateral side running from the bladder neck to the prostate apex. The ureteric orifice was used to guide incisions. Focus was then placed on the laser at the 1 o'clock position to developing a secondary groove down to the level of bladder fibers. The creation of a second deep groove defined a segment of intervening tissue similar to a slice of orange. At the apex of the prostate the 2 grooves were linked the us releasing the intervening tissue. This tissue was then removed with a combination of enucleation and ablation working from the apex toward the bladder neck. The median lobe was then ablated and enucleated tissue released into the bladder. A similar procedure was repeated on the patient's right-hand side. The only differences being the position of the lateral groove at he 7 o'clock position and the secondary groove at the 11 o'clock position, Otherwise the procedure was developed in a mirror fashion. After the majority of tissue had been debulked remnant tissue was ablated with the side fire laser and the curve of the prostate followed up each side wall clearly defining the anterior remnant strip that remained between the 11 and 1 o'clock positions. In this case the anterior tissue protruded into the prostatic fossa and was partially ablated with the laser When this was had been completed debris and pieces of prostate were removed from the bladder with irrigation. Both ureteric orifices were reviewed again in shown to be patent in away from any areas of energy damage. The apical area was reviewed in any stray ooze was controlled. A 22 Citizen [place] 30 cc balloon Rincon catheter was placed over a stylet into the bladder. Clear efflux was obtained upon irrigation with a Benita piston syringe. 30 cc was placed in the balloon and gentle traction was placed. A snap was used to hold tension on the catheter to control bleeding during patient moved and transported. A drainage bag was placed. Once transportation is complete to the PACU the snap will be removed. The patient tolerated the procedure well, he was extubated in the operating and transferred in a stable condition to the recovery area. Total Power 112 kW Lasing time 17:02 Pathology: Prostate tissue Drains: Rincon catheter
== END 2024-01-03 13:12 | disposition home or self-care (01) ==
PROVIDERS: PCP Internal Medicine; Visit Provider Urology
PROC: (CPT 52648; principal; 2024-01-03 10:30)
DX: N40.1 Benign prostatic hyperplasia with lower urinary tract symptoms (principal); N13.8 Other obstructive and reflux uropathy; N32.0 Bladder-neck obstruction; E78.5 Hyperlipidemia, unspecified; I10 Essential (primary) hypertension; I25.10 Atherosclerotic heart disease of native coronary artery without angina pectoris; Z95.5 Presence of coronary angioplasty implant and graft; Z79.899 Other long term (current) drug therapy; Z88.0 Allergy status to penicillin; Z79.82 Long term (current) use of aspirin; Z88.8 Allergy status to other drugs, medicaments and biological substances
CPT/HCPCS: 52649; 88300; 88304; 88305; J1100; J1885; J1956; J2250; J2405; J2704; J3010

== ENCOUNTER → 2024-01-03 09:48 | Outpatient (BNV) | payer BC, SELFPAY | PROVIDERS: PCP Internal Medicine; Visit Provider Urology | DX: N32.0 Bladder-neck obstruction (principal) | CPT/HCPCS: 52649 ==

== ENCOUNTER → 2024-01-06 09:02 | Outpatient (BNVA) | payer BC, SELFPAY | PROVIDERS: PCP Internal Medicine; Visit Provider Urology | DX: R33.9 Retention of urine, unspecified (principal) | CPT/HCPCS: 51700 ==

== ENCOUNTER 2024-02-10 10:28 | Outpatient (AMB) | payer BC, SELFPAY ==
--- NOTE | 2024-02-10 10:46 | A.OFFVIS_ITS ---
Intake Visit Reasons: Greenlight follow up Intake Note: Patient Is Present for Post Op Follow up Procedure Done: [facility] Med: Tadalafil,Testosterone, Finasteride, Doxazosin, Antibiotic Allergy: Blood Thinner: Plavix, Aspirin Last PVR: 299 Todays PVR: 26 Allergies niacin Allergy (Unknown, Verified 10/27/23 09:48) high doses - cause lip swelling, blurred vision Penicillins Adverse Reaction (Severe, Verified 10/27/23 09:48) Diarrhea Medication List - Last Reconciled 02/10/24 by Min Singh MD aspirin (Adult Aspirin Regimen) 81 mg PO DAILY atorvastatin 40 mg PO DAILY cefuroxime axetil 500 mg PO Q12H cholecalciferol (vitamin D3) 25 mcg PO DAILY clopidogrel 75 mg PO DAILY doxazosin 8 mg See Protocol PO BEDTIME hydrocortisone 2.5% (Proctozone-HC) 1 appl SD BID isosorbide mononitrate ER 30 mg PO DAILY metoprolol succinate ER 25 mg PO DAILY needle (disp) 18 G (BD Regular Bevel [place]) As directed - draw up testosterone needle (disp) 22 G As directed nitrofurantoin monohyd/m-cryst 100 mg (Macrobid) 100 mg PO BID 5 days sennosides (Senna Lax) 17.2 mg (2 x 8.6 mg) PO BEDTIME PRN sulfamethoxazole-trimethoprim 400-80 mg (Bactrim) 1 tab PO DAILY 90 days syringe (disposable) (BD Luer-Nicholas Syringe) Testosterone injection weekly tadalafil 5 mg PO DAILY 90 days testosterone cypionate (Depo-Testosterone) 200 mg IM Q2W 4 weeks valsartan 40 mg PO BID HPI Comments Details: Cory is a very pleasant male. He is a patient of Dr. Ramírez. He is here for the following urologic conditions - hypogonadism Follow-up for GreenLight laser prostatectomy PVR 26 cc Effective bladder emptying Does not need catheter anymore Finasteride will be stopped Restart testosterone 1 cc 200 mg every 2 weeks IM injection Hypogonadism Symptomatic decline in libido Decreased strength Lack of energy Injection day Wednesday Lab work T 12/16 195, 08/19 T 870 P 3.2 H 53.6, 03/19 755 1.9 56, 06/18 T 626 H 55.8, 01/17 T 219 1.7 51.5, 1/24 1100 2.7 hct 57, 12/19 T 193 Had altered dosage secondary to increasing hematocrit Associated comorbidities include cardiovascular disease - prior SC and revascularization, diabetes - 01/15 T 500 - other baseline labs - FSH 10.9 - suggestive of testicular decreased hormone sensitivity Failed injectable secondary to high hematocrit. Unable to get zyosted Would recommend gel. Erectile dysfunction Unable to take PDE use since on isosorbide PFSH Medical History Myocardial infarction Low testosterone in male HLD (hyperlipidemia) HTN (hypertension) CAD (coronary artery disease) Surgical History Hx of inguinal hernia surgery Hx of appendectomy Hx of cardiac cath Stented coronary artery (~05/2019) Family History Mother Cancer Diabetes HTN (hypertension) Father HTN (hypertension) Social History Household Members: Spouse Housing: House Do you presently have visiting nurse or other home services: No Alcohol intake: never Patient Tobacco Use Status: Never used Tobacco e-Cigarette/Vaping Use: Never Used Second Hand Smoke Exposure: Yes (as a child) service: No Current occupational status: employed Current occupation: [employer] Cognitive needs: No Hearing needs: No Vision needs: Yes Review of Systems Const Denies chills and Denies fever(s) Card Reports no additional complaints and Denies syncope Resp Denies cough GI Denies abdominal pain and Denies heartburn Reports as per HPI and Denies change in libido Neuro Denies syncope Psych Denies change in libido Endo Denies change in libido Physical Exam Const General: cooperative, healthy appearing, comfortable and no acute distress Orientation/consciousness: patient oriented x3 HEENT Face and sinus: Yes normal facial exam Mouth: moist mucous membranes Neck Neck: Yes normal visual inspection, Yes full ROM and Yes trachea midline Chest Chest palpation & inspection: normal inspection of the chest Resp Effort & Inspection: normal respiratory effort, able to speak in complete sentences and no respiratory distress GI Inspection: Yes normal to inspection Back/Spine/Pelvis Cervical Spine: normal cervical lordosis Thoracic/Lumbar Spine: thoracic and lumbar spine normal to inspection Skin General skin exam: no rashes or lesions noted Neuro General: patient oriented x3, gait normal, tone normal and moves all extremities Extrem General: Yes normal to inspection and Yes capillary refill normal Office Procedures Post Void Residual Post Residual Void Post Void Residual (PVR): 26 24853-Mani Void Residual by ultrasound Assessment & Plan Assessment & Plan (1) Urinary retention: Code(s): R33.9 - Retention of urine, unspecified Category: Medical (2) Bladder stone: Code(s): N21.0 - Calculus in bladder Category: Medical (3) Hypogonadism in male: Code(s): E29.1 - Testicular hypofunction Category: Medical Plan Six-month follow-up Orders: Orders AMB Post Void Residual by ultrasound Today R33.9 - Retention of urine, unspecified Prostate Specific Antigen 6 Months R7 - Other specified abnormal findings of blood chemistry Testosterone, Total 6 Months R7 - Other specified abnormal findings of blood chemistry Complete Blood Count no Diff 6 Months - Other specified abnormal findings of blood chemistry Medications: New testosterone cypionate (Depo-Testosterone) 200 mg IM Q2W 4 weeks 2 mL 5RF R7. - Other specified abnormal findings of blood chemistry needle (disp) 18 G (BD Regular Bevel [place]) As directed - draw up testosterone 30 ea 0RF E29.1 - Testicular hypofunction, R7. - Other specified abnormal findings of blood chemistry needle (disp) 22 G As directed 30 ea 0RF R7.89 - Other specified abnormal findings of blood chemistry syringe (disposable) (BD Luer-Nicholas Syringe) Testosterone injection weekly 30 ea 0RF E34.9 - Endocrine disorder, unspecified, - Other specified abnormal findings of blood chemistry Discontinued finasteride Discontinued Reason: Patient Completed Course 5 mg PO DAILY 60 tabs 0RF testosterone enanthate Discontinued Reason: Patient Completed Course 75 mg (0.5 mL) subcut QWEEK 28 days 2 mL 5RF Patient Instructions: Imaging studies, laboratory and physical exam results were discussed and reviewed in detail. No major barriers to patient understanding were identified. An opportunity to ask questions regarding the treatment plan was provided. All questions were answered. The patient expressed understanding and agreement with the above treatment plan. The patient is aware they should contact our office by phone for worsening of their current condition or the appearance of new urologic symptoms. Compliance is encouraged with any medications and followup testing that is ordered. It is a privilege to participate in the urologic care of your patient. If you have any questions or concerns regarding treatment for the above conditions, or other urologic issues, please do not hesitate to contact me. The office telephone contact is [phone]. This note is constructed using voice recognition software. While every effort has been made to ensure accuracy swift tender errors may have been included. Yours sincerely, Dr Min Singh MD, [facility] [place] - Urology Providers of Expert, Compassionate Care for the Genitourinary System Coding Level of Care Code Est Pt Level 4 (22368) Diagnoses Urinary retention R33.9 Bladder stone N21.0 Hypogonadism in male E29.1 CPT Codes Post Residual Void - PVR CPT Code: 20467-Pkne Void Residual by ultrasound ([id number])
== END 2024-02-10 11:14 | disposition home or self-care (01) ==
PROVIDERS: PCP Internal Medicine; Visit Provider Urology
DX: R33.9 Retention of urine, unspecified (principal); N21.0 Calculus in bladder; E29.1 Testicular hypofunction
CPT/HCPCS: 99024

== ENCOUNTER → 2024-02-10 10:28 | Outpatient (BNVA) | payer BC, SELFPAY | PROVIDERS: PCP Internal Medicine; Visit Provider Urology | DX: R33.9 Retention of urine, unspecified (principal); N21.0 Calculus in bladder; E29.1 Testicular hypofunction | CPT/HCPCS: 51798 ==

== ENCOUNTER 2024-03-20 08:50 | Outpatient (AMB) | payer BC, SELFPAY ==
[2024-03-20 09:05] VITALS: BP 112/70; PULSE 69; BMI 33.0
--- NOTE | 2024-03-20 09:05 | MHC.OFFVIS ---
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 Accompanied by: Self / Same As Patient Allergies niacin Allergy (Unknown, Verified 10/27/23 09:48) high doses - cause lip swelling, blurred vision Penicillins Adverse Reaction (Severe, Verified 10/27/23 09:48) Diarrhea Medication List - Last Reconciled 03/20/24 by Capo Bautista MD atorvastatin 40 mg PO DAILY cholecalciferol (vitamin D3) 25 mcg PO DAILY clopidogrel 75 mg PO DAILY metoprolol succinate ER 25 mg PO DAILY needle (disp) 18 G (BD Regular Bevel [place]) As directed - draw up testosterone needle (disp) 23 gauge As directed for testosterone use nitrofurantoin monohyd/m-cryst 100 mg (Macrobid) 100 mg PO BID 5 days syringe (disposable) (BD Luer-Nicholas Syringe) Testosterone injection weekly tadalafil 5 mg PO DAILY 90 days testosterone cypionate (Depo-Testosterone) 200 mg IM Q2W 4 weeks valsartan 40 mg PO BID HPI Comments Details: 63 years old gentleman was referred for history of coronary artery disease and dyspnea. In 2007 he presented with syncope and had an abnormal stress test. He was taken for cardiac catheterization by Dr. 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 Bettencourt. He followed up with him and then stopped following up. He was referred for exercise stress test which showed inferior perfusion defect. This led to cardiac catheterization showing three-vessel disease including an IFR positive LAD, distal RCA severe stenosis and chronic total occlusion of the left circumflex with [id number] collaterals. After discussion with him was taken back for multivessel PCI and underwent PCI of the right coronary artery as well as BLOOD BANK WORKER PCI the left circumflex OM. The LAD was decided to medically manage. He was put in cardiac rehab and has been doing well there. In the interim he got admitted to [facility] with NSTEMI and was noticed to have occluded right coronary artery with [id number] collaterals. Ejection fraction was dropped in the moderate range at that time. He was asymptomatic at the time of catheterization and was at least 48 hours into the event and we decided to medically treat him. He was started on guideline directed medical therapy for cardiomyopathy. He had a limited echo which showed EF improvement to 50 55% with basal inferior wall akinesis and inferolateral wall hypokinesis. He has been doing well with medical management at this stage. He is returning for follow-up today. He said he had some headache, left-sided reproducible chest pain and palpitations. He said he stopped taking aspirin and atorvastatin and few days later his symptoms improved. He has not been taking aspirin atorvastatin since then. He is taking rest of his medications otherwise. He has known chest discomfort shortness of breath currently. 05/26/23: He returns for follow-up. He has been doing well. No chest discomfort shortness of breath. 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 He did cardiac rehabilitation but after finishing he has not been exercising. I have advised him to start exercising again. Last visit he told us that he was having some or chest pains and he stopped taking aspirin and he was advised restarted. He has been taking aspirin along with Plavix at this stage. Blood pressure control is good. Tolerating medications well. 03/20/2024: He is here for follow-up. He continues to work night shifts 5 days a week. He takes care of his autistic grandson during the day along with his . He is denying any chest pain or shortness of breath. It does gets tired during the day at times. Blood pressure is well controlled. He is asking why he can not take isosorbide mononitrate anymore. It was explained to him that the combination with tadalafil can lead to very low blood pressure and he should not use any isosorbide mononitrate. [facility] Medical History (Updated 03/20/24 @ 09:11 by Colleen Zarco CMA) Prostate abscess Myocardial infarction Low testosterone in male HLD (hyperlipidemia) HTN (hypertension) CAD (coronary artery disease) Surgical History Hx of inguinal hernia surgery Hx of appendectomy Hx of cardiac cath Stented coronary artery (~05/2019) Family History Mother Cancer Diabetes HTN (hypertension) Father HTN (hypertension) Social History Household Members: Spouse Housing: House Do you presently have visiting nurse or other home services: No Alcohol intake: never Patient Tobacco Use Status: Never used Tobacco e-Cigarette/Vaping Use: Never Used Second Hand Smoke Exposure: Yes (as a child) service: No Current occupational status: employed Current occupation: Rt handed[employer] Cognitive needs: No Hearing needs: No Vision needs: Yes Review of Systems Const Denies chills, Denies fatigue, Denies fever(s), Denies frequent falls, Denies weakness, Denies weight gain and Denies weight loss ENT Denies dizziness Card Denies chest pain, Denies leg edema, Denies lightheadedness, Denies palpitations, Denies dyspnea and Denies dyspnea on exertion Resp Denies cough, Denies dyspnea and Denies dyspnea on exertion GI Denies hematochezia Musc Denies abnormal gait, Denies muscle weakness, Denies numbness, Denies radiating pain into limb and Denies tingling Neuro Denies abnormal gait, Denies dizziness, Denies frequent falls, Denies numbness, Denies tingling and Denies weakness Endo Denies fatigue and Denies palpitations Physical Exam Vital Signs: Last Vital Signs Pulse 69 03/20/24 09:05 BP 112/70 03/20/24 09:05 BMI result Body Mass Index 33.0 GENERAL APPEARANCE: in no acute distress, pleasant. NECK: no carotid bruit, no jugular venous distention. SKIN: no suspicious lesions, warm and dry. HEART: no murmurs, regular rate and rhythm. LUNGS: clear to auscultation bilaterally. ABDOMEN: soft, nontender. EXTREMITIES: no edema. PERIPHERAL PULSES: equal. NEUROLOGIC: No gross deficits, AAO X 3 Office Procedures EKG Details: Sinus rhythm 69 beats per minute, inferior infarct, leftward axis, QTC 458 milliseconds. [id number], Complete Assessment & Plan Assessment & Plan (1) HTN (hypertension): Code(s): I10 - Essential (primary) hypertension Category: Medical Qualifiers: Hypertension type: primary hypertension Qualified Code(s): I10 - Essential (primary) hypertension (2) Stable angina: Code(s): I20.8 - Other forms of angina pectoris Category: Medical Plan [age] year gentleman who is here for follow-up. He has known history of coronary artery disease and has stable angina. Low normal ejection fraction by echocardiography in the past. He is on Plavix monotherapy currently. Blood pressure is well controlled. Clinically stable and will follow up with us in 6 months. Thank you for allowing me to participate in the care of your patient. Please feel free to contact me if you have any questions. Coding Level of Care Code Est Pt Level 4 (83549) Diagnoses Primary hypertension I10 Hypertension type: primary hypertension Stable angina I20.8 CPT Codes EKG - CPT: 62252-[id number], Complete ([id number])
== END 2024-03-20 09:29 | disposition home or self-care (01) ==
PROVIDERS: PCP Internal Medicine; Visit Provider Internal Medicine Cardiovascular Disease
DX: I10 Essential (primary) hypertension (principal); I20.89 Other forms of angina pectoris
CPT/HCPCS: 93010; 99214

== ENCOUNTER → 2024-03-20 08:50 | Outpatient (BNVA) | payer BC, SELFPAY | PROVIDERS: PCP Internal Medicine; Visit Provider Internal Medicine Cardiovascular Disease | DX: I10 Essential (primary) hypertension (principal); I20.89 Other forms of angina pectoris; Z79.02 Long term (current) use of antithrombotics/antiplatelets | CPT/HCPCS: 93005 ==

== ENCOUNTER 2024-05-02 13:39 | Outpatient (AMB) | payer BC, SELFPAY ==
--- NOTE | 2024-05-02 13:46 | MHC.OFFVIS ---
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 He is a patient of Dr. Ramírze. He is here for the following urologic conditions - hypogonadism Has issues with fully obtaining and maintaining erection On Plavix Unable to use vacuum pump secondary to bruising Can try constriction ring Constriction ring was demonstrated and Link provided Restart testosterone 1 cc 200 mg every 2 weeks IM injection Hypogonadism Symptomatic decline in libido Decreased strength Lack of energy Injection day Wednesday Lab work T 12/16 195, 08/19 T 870 P 3.2 H 53.6, 03/19 755 1.9 56, 06/18 T 626 H 55.8, 01/17 T 219 1.7 51.5, 07/21 1100 2.7 hct 57, 12/19 T 193 Had altered dosage secondary to increasing hematocrit Associated comorbidities include cardiovascular disease - prior VT and revascularization, diabetes - 01/15 T 500 - other baseline labs - FSH 10.9 - suggestive of testicular decreased hormone sensitivity Failed injectable secondary to high hematocrit. Unable to get zyosted Would recommend gel. Erectile dysfunction Unable to take PDE use since on isosorbide Bladder outlet obstruction [facility] laser [facility] Medical History (Updated 03/20/24 @ 09:11 by Colleen Zarco CMA) Prostate abscess Myocardial infarction Low testosterone in male HLD (hyperlipidemia) HTN (hypertension) CAD (coronary artery disease) Surgical History Hx of inguinal hernia surgery Hx of appendectomy Hx of cardiac cath Stented coronary artery (~05/2019) Family History Mother Cancer Diabetes HTN (hypertension) Father HTN (hypertension) Social History Household Members: Spouse Housing: House Do you presently have visiting nurse or other home services: No Alcohol intake: never Patient Tobacco Use Status: Never used Tobacco e-Cigarette/Vaping Use: Never Used Second Hand Smoke Exposure: Yes (as a child) service: No Current occupational status: employed Current occupation: [employer] Cognitive needs: No Hearing needs: No Vision needs: Yes Review of Systems Const Denies chills and Denies fever(s) Card Reports no additional complaints and Denies syncope Resp Denies cough GI Denies abdominal pain and Denies heartburn Reports as per HPI and Denies change in libido Neuro Denies syncope Psych Denies change in libido Endo Denies change in libido Physical Exam Const General: cooperative, healthy appearing, comfortable and no acute distress Orientation/consciousness: patient oriented x3 HEENT Face and sinus: Yes normal facial exam Mouth: moist mucous membranes Neck Neck: Yes normal visual inspection, Yes full ROM and Yes trachea midline Chest Chest palpation & inspection: normal inspection of the chest Resp Effort & Inspection: normal respiratory effort, able to speak in complete sentences and no respiratory distress GI Inspection: Yes normal to inspection Back/Spine/Pelvis Cervical Spine: normal cervical lordosis Thoracic/Lumbar Spine: thoracic and lumbar spine normal to inspection Skin General skin exam: no rashes or lesions noted Neuro General: patient oriented x3, gait normal, tone normal and moves all extremities Extrem General: Yes normal to inspection and Yes capillary refill normal Assessment & Plan Assessment & Plan (1) Erectile dysfunction associated with type 2 diabetes mellitus: Code(s): E11.69 - Type 2 diabetes mellitus with other specified complication; N52.1 - Erectile dysfunction due to diseases classified elsewhere Category: Medical Plan Keep planned follow-up Patient Instructions: Imaging studies, laboratory and physical exam results were discussed and reviewed in detail. No major barriers to patient understanding were identified. An opportunity to ask questions regarding the treatment plan was provided. All questions were answered. The patient expressed understanding and agreement with the above treatment plan. The patient is aware they should contact our office by phone for worsening of their current condition or the appearance of new urologic symptoms. Compliance is encouraged with any medications and followup testing that is ordered. It is a privilege to participate in the urologic care of your patient. If you have any questions or concerns regarding treatment for the above conditions, or other urologic issues, please do not hesitate to contact me. The office telephone contact is [phone]. This note is constructed using voice recognition software. While every effort has been made to ensure accuracy fish inspector errors may have been included. Yours sincerely, Dr Min Singh MD, [facility] - Urology Providers of Expert, Compassionate Care for the Genitourinary System Coding Level of Care Code Est Pt Level 3 (84118) Diagnoses Erectile dysfunction associated with type 2 diabetes mellitus E11.69; N52.1
== END 2024-05-02 14:07 | disposition home or self-care (01) ==
LOC: HO.HUSH 13:39
PROVIDERS: PCP Internal Medicine; Visit Provider Urology
DX: E11.69 Type 2 diabetes mellitus with other specified complication (principal); N52.1 Erectile dysfunction due to diseases classified elsewhere
CPT/HCPCS: 99213

== ENCOUNTER 2024-06-16 08:15 | Outpatient (REF) | payer BC, SELFPAY ==
[2024-06-16 10:55] LABS: MANUAL DIFF FLAG NO
[2024-06-16 11:04] LABS: Basophils Percent Auto 0.4 % (0-2); Eosinophils Absolute Auto 0.1 X10*3/uL (0.0-0.4); Eosinophils Percent Auto 1.4 % (0-4); Hematocrit 52.3 % (42.0-52.0); Hemoglobin 17.5 g/dl (14.0-18.0); Imm Gran Abs Auto 0.07 X10*3/uL (0.00-0.03); Imm Gran Pct Auto 0.9 % (0.0-0.4); Lymphocytes Absolute Auto 1.7 X10*3/uL (1.2-4.9); Lymphocytes Percent Auto 20.4 % (20-40); Mean Corpuscular HGB Conc 33.5 g/dl (31.0-36.0); Mean Corpuscular Hemoglobin 28.7 pg (27.0-33.0); Mean Corpuscular Volume 85.9 fL (80.0-98.0); Mean Platelet Volume 11.8 fL (9.4-12.4); Monocytes Absolute Auto 0.5 X10*3/uL (0.1-1.2); Monocytes Percent Auto 5.7 % (2-11); Neutrophils Absolute Auto 5.8 x10*3/uL (2.0-8.3); Neutrophils Percent Auto 71.2 % (45-73); Platelet Count 176 X10*3/uL (160-400); Red Blood Count 6.09 X10*6/uL (4.60-5.80); Red Cell Distribution Width 17.6 % (11.0-16.0); White Blood Count 8.1 X10*3/uL (4.8-10.8)
[2024-06-16 12:07] LABS: Anion Gap 13 (12-20); Carbon Dioxide 24 mmol/L (22-29); Chloride 109 mmol/L (96-108); Sodium 142 mmol/L (135-145)
[2024-06-16 12:30] LABS: Estimated Average Glucose 114 mg/dL; Hemoglobin A1C 168.7617 umol/L; Hemoglobin A1c % 5.6 % (<6.0); Total Hemoglobin (HGBA1C) 4485.3154 umol/L
[2024-06-16 12:47] LABS: Alanine Aminotransferase 32 U/L (0-40); Albumin Level 4.1 g/dL (3.5-5.0); Alkaline Phosphatase 94 U/L (39-117); Aspartate Amino Transferase 29 U/L (5-37); Bilirubin Total 1.4 mg/dL (0.0-1.0); Blood Urea Nitrogen 28 mg/dL (9-16); Calcium 9.3 mg/dL (8.4-10.2); Estimated Glomerular Filt Rate > 60; Glucose Random 169 mg/dL (60-115)
[2024-06-18 11:04] LABS: LDL Cholesterol Direct 130 mg/dL (<100)
== END 2024-06-16 08:16 | disposition home or self-care (01) ==
LOC: HO.HMGCLDS 08:15
PROVIDERS: PCP Internal Medicine; Visit Provider Internal Medicine
DX: Z00.01 Encounter for general adult medical examination with abnormal findings (principal); R42 Dizziness and giddiness; I10 Essential (primary) hypertension; I25.118 Atherosclerotic heart disease of native coronary artery with other forms of angina pectoris; R73.01 Impaired fasting glucose; E80.4 Gilbert syndrome; E66.811 Obesity, class 1; E66.09 Other obesity due to excess calories; Z68.33 Body mass index [BMI] 33.0-33.9, adult
CPT/HCPCS: 36415; 80053; 83036; 83721; 85025; 96127

== ENCOUNTER 2024-06-16 08:15 | Outpatient (AMB) | payer BC, SELFPAY ==
[2024-06-16 08:16] VITALS: BP 126/78; PULSE 72; O2SAT 95; BMI 33.3
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
== END 2024-06-16 08:38 | disposition home or self-care (01) ==
PROVIDERS: PCP Internal Medicine; Visit Provider Internal Medicine
DX: Z00.00 Encounter for general adult medical examination without abnormal findings (principal); I25.118 Atherosclerotic heart disease of native coronary artery with other forms of angina pectoris; E66.811 Obesity, class 1; Z68.33 Body mass index [BMI] 33.0-33.9, adult; R42 Dizziness and giddiness; I10 Essential (primary) hypertension; R73.01 Impaired fasting glucose; E80.4 Gilbert syndrome

== ENCOUNTER 2024-07-29 07:58 | Outpatient (REF) | payer BC, SELFPAY ==
[2024-07-29 11:58] LABS: Hematocrit 54.8 % (42.0-52.0); Hemoglobin 17.8 g/dl (14.0-18.0); Mean Corpuscular HGB Conc 32.5 g/dl (31.0-36.0); Mean Corpuscular Volume 86.2 fL (80.0-98.0); Mean Platelet Volume 10.9 fL (9.4-12.4); Platelet Count 194 X10*3/uL (160-400); Red Blood Count 6.36 X10*6/uL (4.60-5.80); Red Cell Distribution Width 14.7 % (11.0-16.0); White Blood Count 8.3 X10*3/uL (4.8-10.8)
[2024-07-29 12:29] LABS: Prostate Specific Antigen 8.38 ng/mL (<0.05-4.0)
[2024-08-03 12:13] LABS: Testosterone, Total 657 ng/dL (250-1100)
== END 2024-07-29 07:59 | disposition home or self-care (01) ==
LOC: HO.HMGCLDS 07:58
PROVIDERS: PCP Internal Medicine; Visit Provider Urology
DX: R79.89 Other specified abnormal findings of blood chemistry (principal); Z12.5 Encounter for screening for malignant neoplasm of prostate
CPT/HCPCS: 36415; 84153; 84403; 85027

== ENCOUNTER 2024-08-11 09:20 | Outpatient (REF) | payer BC, SELFPAY ==
[2024-08-11 16:37] LABS: Urine Cytology See Pathology rpt
== END 2024-08-11 09:21 | disposition home or self-care (01) ==
LOC: HO.LAB 09:20
PROVIDERS: PCP Internal Medicine; Visit Provider Urology
DX: E29.1 Testicular hypofunction (principal); N39.0 Urinary tract infection, site not specified
CPT/HCPCS: 81003; 88112

== ENCOUNTER 2024-08-11 09:20 | Outpatient (AMB) | payer BC, SELFPAY ==
--- NOTE | 2024-08-11 09:31 | A.OFFVIS_ITS ---
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 He is a patient of Dr. Ramírez. He is here for the following urologic conditions - hypogonadism Six-month testosterone follow-up Has been on - Testosterone 1 cc 200 mg every 2 weeks IM injection Found he spiked his estrogen with associated emotional change Switch testosterone to weekly subcutaneous with better results We will continue Six-month follow-up recheck PSA UA showed blood today will do cytology Hypogonadism Symptomatic decline in libido Decreased strength Lack of energy Injection day Wednesday Lab work T 12/16 195, 08/19 T 870 P 3.2 H 53.6, 03/19 755 1.9 56, 06/18 T 626 H 55.8, 01/17 T 219 1.7 51.5, 07/21 1100 2.7 hct 57, 12/19 T 193, T 627 P8.4 H54 Had altered dosage secondary to increasing hematocrit Associated comorbidities include cardiovascular disease - prior [place] and revascularization, prediabetes - 01/15 T 500 - other baseline labs - FSH 10.9 - suggestive of testicular decreased hormone sensitivity Failed injectable secondary to high hematocrit. 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 [facility] Medical History Prostate abscess Myocardial infarction Low testosterone in male HLD (hyperlipidemia) HTN (hypertension) CAD (coronary artery disease) Surgical History Hx of inguinal hernia surgery Hx of appendectomy Hx of cardiac cath Stented coronary artery (~05/2019) Family History Mother Cancer Diabetes HTN (hypertension) Father HTN (hypertension) Social History Household Members: Spouse Housing: House Do you presently have visiting nurse or other home services: No Alcohol intake: never Patient Tobacco Use Status: Never used Tobacco e-Cigarette/Vaping Use: Never Used Second Hand Smoke Exposure: Yes (as a child) service: No Current occupational status: employed Current occupation: [employer] Cognitive needs: No Hearing needs: No Vision needs: Yes Review of Systems Const Denies chills and Denies fever(s) Card Reports no additional complaints and Denies syncope Resp Denies cough GI Denies abdominal pain and Denies heartburn Reports as per HPI and Denies change in libido Neuro Denies syncope Psych Denies change in libido Endo Denies change in libido Physical Exam Const General: cooperative, healthy appearing, comfortable and no acute distress Orientation/consciousness: patient oriented x3 HEENT Face and sinus: Yes normal facial exam Mouth: moist mucous membranes Neck Neck: Yes normal visual inspection, Yes full ROM and Yes trachea midline Chest Chest palpation & inspection: normal inspection of the chest Resp Effort & Inspection: normal respiratory effort, able to speak in complete sentences and no respiratory distress GI Inspection: Yes normal to inspection Back/Spine/Pelvis Cervical Spine: normal cervical lordosis Thoracic/Lumbar Spine: thoracic and lumbar spine normal to inspection Skin General skin exam: no rashes or lesions noted Neuro General: patient oriented x3, gait normal, tone normal and moves all extremities Extrem General: Yes normal to inspection and Yes capillary refill normal Assessment & Plan Assessment & Plan (1) Lack of libido: Code(s): F52.0 - Hypoactive sexual desire disorder Category: Medical (2) Erectile dysfunction associated with type 2 diabetes mellitus: Code(s): E11.69 - Type 2 diabetes mellitus with other specified complication; N52.1 - Erectile dysfunction due to diseases classified elsewhere Category: Medical (3) Low testosterone in male: Code(s): R79.89 - Other specified abnormal findings of blood chemistry Category: Medical Plan Six-month follow-up Orders: Orders AMB Urinalysis Automated Today Z13.9 - Encounter for screening, unspecified Urine Cytology Today N39.0 - Urinary tract infection, site not specified Prostate Specific Antigen 6 Months E29.1 - Testicular hypofunction Testosterone, Total 6 Months E29.1 - Testicular hypofunction Complete Blood Count no Diff 6 Months E29.1 - Testicular hypofunction Estradiol Ultra Sensitive 6 Months E29.1 - Testicular hypofunction Medications: Changed From tadalafil 5 mg PO DAILY 90 days 90 tabs 1RF R79.89 - Other specified abnormal findings of blood chemistry To tadalafil insurance will not cover, please use low cost pricing 5 mg PO DAILY 90 days 90 tabs 1RF R79.89 - Other specified abnormal findings of blood chemistry Patient Instructions: This note is constructed using voice recognition software. While every effort has been made to ensure accuracy director alumni relations errors may have been included. Imaging studies, laboratory and physical exam results were discussed and reviewed in detail. No major barriers to patient understanding were identified. An opportunity to ask questions regarding the treatment plan was provided. All questions were answered. The patient expressed understanding and agreement with the above treatment plan. The patient is aware they should contact our office by phone for worsening of their current condition or the appearance of new urologic symptoms. Compliance is encouraged with any medications and followup testing that is ordered. It is a privilege to participate in the urologic care of your patient. If you have any questions or concerns regarding treatment for the above conditions, or other urologic issues, please do not hesitate to contact me. The office telephone contact is [phone]. Sincerely, Dr Min Singh MD, [facility] - Urology Compassionate Specialist Care for the Genitourinary System Coding Level of Care Code Est Pt Level 4 (78752) Diagnoses Lack of libido F52.0 Erectile dysfunction associated with type 2 diabetes mellitus E11.69; N52.1 Low testosterone in male R79.89
== END 2024-08-11 10:05 | disposition home or self-care (01) ==
PROVIDERS: PCP Internal Medicine; Visit Provider Urology
DX: F52.0 Hypoactive sexual desire disorder (principal); E11.69 Type 2 diabetes mellitus with other specified complication; N52.1 Erectile dysfunction due to diseases classified elsewhere; R79.89 Other specified abnormal findings of blood chemistry; Z13.9 Encounter for screening, unspecified
CPT/HCPCS: 99214

== ENCOUNTER 2024-09-04 08:47 | Outpatient (AMB) | payer BC, SELFPAY ==
--- NOTE | 2024-09-04 09:02 | MHC.OFFVIS ---
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 Required: No Accompanied by: Self / Same As Patient Allergies niacin Allergy (Unknown, Verified 08/11/24 09:36) high doses - cause lip swelling, blurred vision Penicillins Adverse Reaction (Severe, Verified 08/11/24 09:36) Diarrhea Medication List - Last Reconciled 09/04/24 by Capo Bautista MD atorvastatin 40 mg PO DAILY cholecalciferol (vitamin D3) 25 mcg PO DAILY clopidogrel 75 mg PO DAILY metoprolol succinate ER 25 mg PO DAILY needle (disp) 18 G (BD Regular [place]) As directed - draw up testosterone needle (disp) 23 gauge As directed for testosterone use syringe (disposable) (BD Luer-Nicholas Syringe) Testosterone injection weekly tadalafil 5 mg PO DAILY 90 days testosterone cypionate (Depo-Testosterone) 100 mg (0.5 mL) IM QWEEK 4 weeks valsartan 40 mg PO BID HPI Comments Details: 63 years old gentleman was referred for history of coronary artery disease and dyspnea. In 2007 he presented with syncope and had an abnormal stress test. He was taken for cardiac catheterization by Dr. 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 He had successful FRUIT [employer] VEGETABLE CLASSER PCI by Dr. Bettencourt. He followed up with him and then stopped following up. He was referred for exercise stress test which showed inferior perfusion defect. This led to cardiac catheterization showing three-vessel disease including an IFR positive LAD, distal RCA severe stenosis and chronic total occlusion of the left circumflex with [id number]-[id number] collaterals. After discussion with him was taken back for multivessel PCI and underwent PCI of the right coronary artery as well as FRUIT AND VEGETABLE CLASSER PCI the left circumflex OM. The LAD was decided to medically manage. He was put in cardiac rehab and has been doing well there. In the interim he got admitted to [facility] with NSTEMI and was noticed to have occluded right coronary artery with [id number] collaterals. Ejection fraction was dropped in the moderate range at that time. He was asymptomatic at the time of catheterization and was at least 48 hours into the event and we decided to medically treat him. He was started on guideline directed medical therapy for cardiomyopathy. He had a limited echo which showed EF improvement to 50 55% with basal inferior wall akinesis and inferolateral wall hypokinesis. He has been doing well with medical management at this stage. He is returning for follow-up today. He said he had some headache, left-sided reproducible chest pain and palpitations. He said he stopped taking aspirin and atorvastatin and few days later his symptoms improved. He has not been taking aspirin atorvastatin since then. He is taking rest of his medications otherwise. He has known chest discomfort shortness of breath currently. 05/26/23: He returns for follow-up. He has been doing well. No chest discomfort shortness of breath. 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 He did cardiac rehabilitation but after finishing he has not been exercising. I have advised him to start exercising again. Last visit he told us that he was having some or chest pains and he stopped taking aspirin and he was advised restarted. He has been taking aspirin along with Plavix at this stage. Blood pressure control is good. Tolerating medications well. 03/20/2024: He is here for follow-up. He continues to work night shifts 5 days a week. He takes care of his autistic grandson during the day along with his . He is denying any chest pain or shortness of breath. It does gets tired during the day at times. Blood pressure is well controlled. He is asking why he can not take isosorbide mononitrate anymore. It was explained to him that the combination with tadalafil can lead to very low blood pressure and he should not use any isosorbide mononitrate. 09/04/2024: He is here for follow-up. He is denying any symptoms currently. Taking medications regularly. Blood pressure is well controlled. He is saying that the pharmacy keeps calling him about our isosorbide. This medication was canceled before because he was taking tadalafil. We will check with pharmacy. [facility], [facility] Medical History Prostate abscess Myocardial infarction Low testosterone in male HLD (hyperlipidemia) HTN (hypertension) CAD (coronary artery disease) Surgical History Hx of inguinal hernia surgery Hx of appendectomy Hx of cardiac cath Stented coronary artery (~05/2019) Family History Mother Cancer Diabetes HTN (hypertension) Father HTN (hypertension) Social History Household Members: Spouse Housing: House Do you presently have visiting nurse or other home services: No Alcohol intake: never Patient Tobacco Use Status: Never used Tobacco e-Cigarette/Vaping Use: Never Used Second Hand Smoke Exposure: Yes (as a child) service: No Current occupational status: employed Current occupation: [employer] Cognitive needs: No Hearing needs: No Vision needs: Yes Review of Systems Const Denies chills, Denies fatigue, Denies fever(s), Denies frequent falls, Denies weakness, Denies weight gain and Denies weight loss ENT Denies dizziness Card Denies chest pain, Denies leg edema, Denies lightheadedness, Denies palpitations, Denies dyspnea and Denies dyspnea on exertion Resp Denies cough, Denies dyspnea and Denies dyspnea on exertion GI Denies hematochezia Musc Denies abnormal gait, Denies muscle weakness, Denies numbness, Denies radiating pain into limb and Denies tingling Neuro Denies abnormal gait, Denies dizziness, Denies frequent falls, Denies numbness, Denies tingling and Denies weakness Endo Denies fatigue and Denies palpitations Physical Exam Vital Signs: Last Vital Signs Pulse 73 09/04/24 09:03 BP 122/64 09/04/24 09:03 BMI result Body Mass Index 33.3 GENERAL APPEARANCE: in no acute distress, pleasant. NECK: no carotid bruit, no jugular venous distention. SKIN: no suspicious lesions, warm and dry. HEART: no murmurs, regular rate and rhythm. LUNGS: clear to auscultation bilaterally. ABDOMEN: soft, nontender. EXTREMITIES: no edema. PERIPHERAL PULSES: equal. NEUROLOGIC: No gross deficits, AAO X 3 Assessment & Plan Assessment & Plan (1) HTN (hypertension): Code(s): I10 - Essential (primary) hypertension Category: Medical Qualifiers: Hypertension type: primary hypertension Qualified Code(s): I10 - Essential (primary) hypertension (2) Stable angina: Code(s): I20.8 - Other forms of angina pectoris Category: Medical Plan Pleasant 63 year gentleman who is here for follow-up. He has known history of coronary artery disease with previous RCA PCI. He presented with NSTEMI and RCA was occluded with [id number] collaterals and was medically managed. Ejection fraction is low normal on last echocardiography. He is on Plavix monotherapy currently. Overall doing well and has no exertional symptoms. Blood pressure well controlled. Pharmacy has been calling him that he has to fill isosorbide. This medication has been canceled for long time because he is taking tadalafil and there is an interaction. We will call the pharmacy to confirm cancellation of isosorbide. The patient knows that the 2 medications can not be mixed. Thank you for allowing me to participate in the care of your patient. Please feel free to contact me if you have any questions. Coding Level of Care Code Est Pt Level 4 (15345) Diagnoses Primary hypertension I10 Hypertension type: primary hypertension Stable angina I20.8
[2024-09-04 09:03] VITALS: BP 122/64; PULSE 73; BMI 33.3
== END 2024-09-04 09:15 | disposition home or self-care (01) ==
PROVIDERS: PCP Internal Medicine; Visit Provider Internal Medicine Cardiovascular Disease
DX: I10 Essential (primary) hypertension (principal); I20.89 Other forms of angina pectoris
CPT/HCPCS: 99214

== ENCOUNTER → 2024-09-04 08:47 | Outpatient (BNVA) | payer BC, SELFPAY | PROVIDERS: PCP Internal Medicine; Visit Provider Internal Medicine Cardiovascular Disease ==

== ENCOUNTER 2024-09-11 08:52 | Outpatient (AMB) | payer BC, SELFPAY ==
[2024-09-11 08:56] VITALS: BP 122/78; PULSE 73; TEMP 36.7; O2SAT 97; BMI 33.3
--- NOTE | 2024-09-11 08:56 | AM.OFFWIN_ITS ---
Intake Vital Signs 09/11/24 08:56 Height 5 ft 8 in Weight 219 lb BMI 33.3 BP 122/78 Blood Pressure Location Lt brachial Position Sitting Pulse 73 Pulse Source Pulse Oximeter Temp 98.1 F Temp Source Oral Pulse Oximetry (%) 97 Intake Visit Reasons: EP-lower back pain Intake Note: pt is here for lower back pain Patient Tobacco Use Status: Never used Tobacco Steamblaster Required: No Accompanied by: Self / Same As Patient Allergies niacin Allergy (Unknown, Verified 09/11/24 08:57) high doses - cause lip swelling, blurred vision Penicillins Adverse Reaction (Severe, Verified 09/11/24 08:57) Diarrhea Do you need a note to return to daycare/school/sports/work: No HPI HPI Comments History of Present Illness Details 63 y/o male patient who presents to the walk in clinic with c/o Lower back pain since Yesterday. Reports woken up with Acute Sharp pain located midline Back. Denies Injury or trauma. Denies bowel or bladder symptoms. [facility] Medical History (Updated 09/11/24 @ 09:35 by Arpita Iqbal NP) Low back pain Prostate abscess Myocardial infarction Low testosterone in male HLD (hyperlipidemia) HTN (hypertension) CAD (coronary artery disease) Surgical History Hx of inguinal hernia surgery Hx of appendectomy Hx of cardiac cath Stented coronary artery (~05/2019) Family History Mother Cancer Diabetes HTN (hypertension) Father HTN (hypertension) Social History Household Members: Spouse Housing: House Do you presently have visiting nurse or other home services: No Alcohol intake: never Patient Tobacco Use Status: Never used Tobacco e-Cigarette/Vaping Use: Never Used Second Hand Smoke Exposure: Yes (as a child) service: No Current occupational status: employed Current occupation: [employer] Cognitive needs: No Hearing needs: No Vision needs: Yes Review of Systems Const All systems reviewed & are unremarkable except as noted in HPI and below Physical Exam Vital Signs: Last Vital Signs Temp 98.1 F 09/11/24 08:56 Pulse 73 09/11/24 08:56 BP 122/78 09/11/24 08:56 Pulse Ox 97 09/11/24 08:56 BMI result Body Mass Index 33.3 Const General: no acute distress; No comfortable Nutritional Appearance: overweight Orientation/consciousness: patient oriented x3 Back/Spine/Pelvis Back: back tenderness Thoracic/Lumbar Spine: thoraco-lumbar ROM limited (Limited due to pain), thoraco-lumbar spasm bilaterally in the mid lumbar and in the lower lumbar, lumbar spinal tenderness at L4 and at L5 and straight leg raise positive Neuro General: patient oriented x3 and moves all extremities Psych Speech and movement: Normal speech and movement present Assessment & Plan Assessment & Plan (1) Low back pain: Code(s): M54.50 - Low back pain, unspecified Qualifiers: Chronicity: acute Back pain laterality: midline Sciatica presence: without sciatica Qualified Code(s): M54.50 - Low back pain, unspecified Plan: Ordered PT NSAIDs and Acetaminophen for pain relief Ordered Lidocaine Patches Rest, Ice/Hot Orders: Orders PT Evaluation and Treatment Today M54.50 - Low back pain, unspecified Medications: New acetaminophen 1,000 mg (2 x 500 mg) PO Q6H PRN 30 caps 0RF pain M54.50 - Low back pain, unspecified lidocaine 5% leave on most painful area for up to 12 hrs 1 patch topical DAILY 30 ea 0RF M54.50 - Low back pain, unspecified cyclobenzaprine 10 mg PO BEDTIME 14 tabs 0RF M54.50 - Low back pain, unspecified Coding Level of Care Code Est Pt Level 4 (54612) Diagnoses Acute midline low back pain without sciatica M54.50 Chronicity: acute Back pain laterality: midline Sciatica presence: without sciatica Time Spent (min) 20
== END 2024-09-11 09:41 | disposition home or self-care (01) ==
PROVIDERS: PCP Internal Medicine; Visit Provider Nurse Practitioner Family
DX: M54.50 Low back pain, unspecified (principal)

== ENCOUNTER → 2024-09-11 08:52 | Outpatient (BNVA) | payer BC, SELFPAY | PROVIDERS: PCP Internal Medicine; Visit Provider Nurse Practitioner Family ==

== ENCOUNTER 2024-11-09 08:19 | Outpatient (AMB) | payer BC, SELFPAY ==
--- NOTE | 2024-11-09 09:31 | A.OFFPC_ITS ---
Intake Visit Reasons: Discuss Labs Allergies niacin Allergy (Unknown, Verified 11/09/24 09:32) high doses - cause lip swelling, blurred vision Penicillins Adverse Reaction (Severe, Verified 11/09/24 09:32) Diarrhea Medication List - Last Reconciled 11/09/24 by Isamar Ramírez MD acetaminophen 1,000 mg (2 x 500 mg) PO Q6H PRN atorvastatin 40 mg PO DAILY cholecalciferol (vitamin D3) 25 mcg PO DAILY clopidogrel 75 mg PO DAILY cyclobenzaprine 10 mg PO BEDTIME isosorbide mononitrate ER 30 mg PO DAILY lidocaine 5% 1 patch topical DAILY metoprolol succinate ER 25 mg PO DAILY needle (disp) 18 G (BD Regular Bevel [place]) As directed - draw up testosterone needle (disp) 23 gauge As directed for testosterone use syringe (disposable) (BD Luer-Nicholas Syringe) Testosterone injection weekly tadalafil 5 mg PO DAILY 90 days testosterone cypionate (Depo-Testosterone) 100 mg (0.5 mL) IM QWEEK 4 weeks valsartan 40 mg PO BID Tobacco use date assessed: 11/09/24 Dental Screening Dental Screen Date: 11/09/24 Did you have a dental visit in the last 12 months?: Yes Did you have a dental problem in the last 6 months where you did not have access to dental care?: No Was dental information given to patient?: Patient has dentist HPI Discuss Labs HPI Details History - The patient is a 63-year-old male pres enting with high hemoglobin levels. Review of previous laboratory results indicates hemoglobin levels have been consistently in the 17 g/dL range, with peaks reaching 18 g/dL, which is at the upper limit of normal. - The patient is also concerned about hi gh prostate-specific antigen (PSA) levels. Previously measured PSA level was 8.38 ng/mL in July, above the normal threshold of 4 ng/mL. Patient is establish with Urology [facility] and has apt in Jan Problem List - Elevated Hemoglobin Levels - Increased Prostate-Specific Antigen (P SA) Levels Patient Instructions - You will need to see a blood specialis t before starting regular blood donations. - Be sure to follow up with your srinivas g appointment with the urologist in January. - Expect a call from [facility] to set up an appointment with hematology. Review of Systems - General: No fever no chills - Neurological: No headaches no dizziness - Ear nose throat: No sore throat no hearing difficulty no ear pain - Cardiovascular: No syncope, no chest pain, no palpitations - Gastrointestinal: No nausea vomiting or diarrhea - Endocrine: No polyuria polydipsia no heat intolerance - Genitourinary: No dysuria , no blood in urine [facility] Medical History Low back pain Prostate abscess Myocardial infarction Low testosterone in male HLD (hyperlipidemia) HTN (hypertension) CAD (coronary artery disease) Surgical History Hx of inguinal hernia surgery Hx of appendectomy Hx of cardiac cath Stented coronary artery (~05/2019) Family History Mother Cancer Diabetes HTN (hypertension) Father HTN (hypertension) Social History Household Members: Spouse Housing: House Do you presently have visiting nurse or other home services: No Alcohol intake: never Patient Tobacco Use Status: Never used Tobacco e-Cigarette/Vaping Use: Never Used Second Hand Smoke Exposure: Yes (as a child) service: No Current occupational status: employed Current occupation: [employer] Cognitive needs: No Hearing needs: No Vision needs: Yes Questionnaire Thrive Questionnaire Date Thrive assessed: 11/09/24 I am a: Patient What is your living situation today?: I have a steady place to live Within the past 12 months, did the food you bought not last and you didn't have the money to get more?: Never true Within the past 12 months, did you worry whether your food would run out before you got money to buy more?: Never true Do you have trouble paying for medicines?: No Do you have trouble getting transportation to medical appointments?: No Do you have trouble paying your heating and electricity bill?: No Do you have trouble taking care of your child, family member or friend?: No Do you have trouble with day-to-day activities such as bathing, preparing meals, shopping, managing finances, etc.?: No Are you currently unemployed and looking for a job?: No Are you interested in more education?: No Please select the resources that you would like help with: None Currently or been in a relationship where the following occur: No concerns reported THRIVE Score: 0 AUDIT C Alcohol Use Questionnaire (AUDIT-C) 1. How often do you have a drink containing alcohol?: Monthly or less 2. How many drinks containing alcohol do you have on a typical day when you are drinking?: 1 or 2 3. How often do you have six or more drinks on one occasion?: Never Total Score: 1 Score Reviewed/Action Taken: Yes MIGUEL-7 AMB Questionnaire MIGUEL-7 Date MIGUEL - 7 assessed: 11/09/24 Feeling nervous, anxious, or on edge: 0 = Not at all Not being able to stop or control worryin = Not at all Worrying too much about different things: 0 = Not at all Trouble relaxin = Not at all Being so restless that it is hard to sit still: 0 = Not at all Becoming easily annoyed or irritable: 0 = Not at all Feeling afraid as if something awful might happen: 0 = Not at all Total MIGUEL-7 score (0-4 normal; 5-9 mild; 10-14 moderate; 15-21 severe): 0 Source: Developed by Drs. Reza Obrien, Geena Carlos, Kristopher Kahn and colleagues, with an educational yodit from [employer]. MIGUEL-7 Assessment Billing MIGUEL-7 Assessment Tool: MIGUEL-7 Assessment 04186 Physical exam (Primary Care) Tobacco/Smoking Status: Tobacco use Status Tobacco use date assessed 11/09/24 11/09/24 09:34 Patient Tobacco Use Status Never used Tobacco 11/09/24 09:34 e-Cigarette/Vaping Use Never Used 11/09/24 09:34 Thrive Assessment: Date of Thrive Assessment Date Thrive assessed 11/09/24 11/09/24 09:36 Currently or been in a relationship where the following occur: No concerns reported Telehealth Telehealth Telehealth Platform: [facility] Location of provider rendering services: practice address Location of patient: address on file Patient Identification confirmed using: Name, : Yes Telehealth method: voice only Patient verbally consented to treatment: Yes Patient verbally consented to billing insurance company: Yes Patient informed of any privacy concerns related to visit: Yes Minutes spent on Phone/Video with Pt.: 13 Coding Level of Care Code Tele Est Pt Level 3 (15202) Diagnoses Elevated hemoglobin D58.2 Elevated PSA R97.20 Additional Codes MIGUEL-7 Assessment Billing - MIGUEL-7 Assessment Tool: MIGUEL-7 Assessment 51754 ([id number]) Assessment & Plan Assessment & Plan (1) Elevated hemoglobin: Code(s): D58.2 - Other hemoglobinopathies Category: Medical (2) Elevated PSA: Code(s): R97.20 - Elevated prostate specific antigen [PSA] Category: Medical Plan History - The patient is a 63-year-old male presenting with high hemoglobin levels. Review of previous laboratory results indicates hemoglobin levels have been consistently in the 17 g/dL range, with peaks reaching 18 g/dL, which is at the upper limit of normal. - The patient is also concerned about high prostate-specific antigen (PSA) levels. Previously measured PSA level was 8.38 ng/mL in July, above the normal threshold of 4 ng/mL. Patient is establish with Urology [facility] and has apt in Jan Problem List - Elevated Hemoglobin Levels - Increased Prostate-Specific Antigen (PSA) Levels Patient Instructions - You will need to see a blood specialist before starting regular blood donations. - Be sure to follow up with your upcoming appointment with the urologist in January. - Expect a call from [facility] to set up an appointment with hematology. Orders: Referrals Hematology & Oncology Referral D58.2 - Other hemoglobinopathies
== END 2024-11-09 10:21 | disposition home or self-care (01) ==
LOC: HO.HMCC 08:19
PROVIDERS: PCP Internal Medicine; Visit Provider Internal Medicine
DX: D58.2 Other hemoglobinopathies (principal); R97.20 Elevated prostate specific antigen [PSA]

== ENCOUNTER → 2024-11-09 08:19 | Outpatient (BNVA) | payer BC, SELFPAY | PROVIDERS: PCP Internal Medicine; Visit Provider Internal Medicine | DX: D58.2 Other hemoglobinopathies (principal); R97.20 Elevated prostate specific antigen [PSA] | CPT/HCPCS: 96127 ==

== ENCOUNTER → 2024-11-22 08:03 | Outpatient (BNV) | payer BC, SELFPAY | PROVIDERS: PCP Internal Medicine; Referring Provider Internal Medicine; Visit Provider Internal Medicine | DX: D75.1 Secondary polycythemia (principal) | CPT/HCPCS: 99204 ==

== ENCOUNTER 2024-11-30 09:40 | Outpatient (REF) | payer BC, SELFPAY | END 2024-11-30 09:41 | disposition home or self-care (01) | LOC: HO.BBR 09:40 | PROVIDERS: PCP Internal Medicine; Visit Provider Internal Medicine | DX: D45 Polycythemia vera (principal) | CPT/HCPCS: 85018; 99195 ==

== ENCOUNTER 2024-12-28 09:49 | Outpatient (REF) | payer BC, SELFPAY | END 2024-12-28 09:50 | disposition home or self-care (01) | LOC: HO.BBR 09:49 | PROVIDERS: PCP Internal Medicine; Visit Provider Internal Medicine | DX: D75.1 Secondary polycythemia (principal) | CPT/HCPCS: 85018; 99195 ==

== ENCOUNTER 2025-01-29 08:59 | Outpatient (REF) | payer BC, SELFPAY | END 2025-01-29 09:00 | disposition home or self-care (01) | LOC: HO.BBR 08:59 | PROVIDERS: PCP Internal Medicine; Visit Provider Internal Medicine | DX: D75.1 Secondary polycythemia (principal) | CPT/HCPCS: 85018; 99195 ==

== ENCOUNTER 2025-02-05 06:09 | Outpatient (REF) | payer BC, SELFPAY ==
[2025-02-05 10:14] LABS: Hematocrit 50.4 % (42.0-52.0); Hemoglobin 15.9 g/dl (14.0-18.0); Mean Corpuscular HGB Conc 31.5 g/dl (31.0-36.0); Mean Corpuscular Hemoglobin 27.1 pg (27.0-33.0); Mean Corpuscular Volume 85.9 fL (80.0-98.0); NRBC Abs Auto 0.000 X10*3/uL (0.0-0.012); NRBC Pct Auto 0.0 /100WBC (0.0-0.2); Platelet Count 173 X10*3/uL (160-400); Red Blood Count 5.87 X10*6/uL (4.60-5.80); White Blood Count 5.9 X10*3/uL (4.8-10.8)
[2025-02-05 10:54] LABS: Prostate Specific Antigen 4.16 ng/mL (<0.05-4.0)
[2025-02-18 08:14] LABS: Estradiol Ultra Sensitive 40 pg/mL (< OR = 29)
== END 2025-02-05 06:10 | disposition home or self-care (01) ==
LOC: HO.HMGCLDS 06:09
PROVIDERS: PCP Internal Medicine; Visit Provider Urology
DX: E29.1 Testicular hypofunction (principal); Z12.5 Encounter for screening for malignant neoplasm of prostate
CPT/HCPCS: 36415; 82670; 84153; 84403; 85027

== ENCOUNTER 2025-03-14 10:55 | Outpatient (REF) | payer BC, SELFPAY | END 2025-03-14 10:56 | disposition home or self-care (01) | LOC: HO.BBR 10:55 | PROVIDERS: PCP Internal Medicine; Visit Provider Internal Medicine | DX: D75.1 Secondary polycythemia (principal) | CPT/HCPCS: 85014; 85018; 99195 ==

== ENCOUNTER 2025-03-28 08:44 | Outpatient (AMB) | payer BC, SELFPAY ==
--- NOTE | 2025-03-28 08:56 | A.OFFVIS_ITS ---
Intake Visit Reasons: lab review Intake Note: Patient is present for follow up Urology Medication:TADALAFIL,TESTOSTERONE Antibiotic Allergy:NIACIN,PENICILLIN Blood Thinner:NONE Labs done : 02/05/25 : PSA 4.16, Total Testosterone 572, Estradiol:40 Half Backer Required: No Accompanied by: Self / Same As Patient Allergies niacin Allergy (Unknown, Verified 03/28/25 08:57) high doses - cause lip swelling, blurred vision Penicillins Adverse Reaction (Severe, Verified 03/28/25 08:57) Diarrhea HPI Comments Details: Cory is a very pleasant male. He is a patient of Dr. Ramírez. He is here for the following urologic conditions - hypogonadism Six-month testosterone follow-up Significant improvement in well-being Lab work on target Weekly subcutaneous testosterone 02/19 600 4.1 50 E Hypogonadism Symptomatic decline in libido Decreased strength Lack of energy Injection day Wednesday Lab work T 12/16 195, 08/19 T 870 P 3.2 H 53.6, 03/19 755 1.9 56, 06/18 T 626 H 55.8, 01/17 T 219 1.7 51.5, 07/21 1100 2.7 hct 57, 12/19 T 193, T 627 P8.4 H54 Had altered dosage secondary to increasing hematocrit Associated comorbidities include cardiovascular disease - prior GA and revascularization, prediabetes - 01/15 T 500 - other baseline labs - FSH 10.9 - suggestive of testicular decreased hormone sensitivity Failed injectable secondary to high hematocrit. 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 [facility] Medical History Low back pain Prostate abscess Myocardial infarction Low testosterone in male HLD (hyperlipidemia) HTN (hypertension) CAD (coronary artery disease) Surgical History Hx of inguinal hernia surgery Hx of appendectomy Hx of cardiac cath Stented coronary artery (~05/2019) Family History Mother Cancer Diabetes HTN (hypertension) Father HTN (hypertension) Social History Household Members: Spouse Housing: House Do you presently have visiting nurse or other home services: No Alcohol intake: never Patient Tobacco Use Status: Never used Tobacco Tobacco use type: Cigarette e-Cigarette/Vaping Use: Never Used Second Hand Smoke Exposure: Yes (as a child) service: No Current occupational status: employed Current occupation: [employer] Current occupational exposures/hazards: No Cognitive needs: No Hearing needs: No Vision needs: Yes Review of Systems Const Denies chills and Denies fever(s) Card Reports no additional complaints and Denies syncope Resp Denies cough GI Denies abdominal pain and Denies heartburn Reports as per HPI and Denies change in libido Neuro Denies syncope Psych Denies change in libido Endo Denies change in libido Physical Exam Const General: cooperative, healthy appearing, comfortable and no acute distress Orientation/consciousness: patient oriented x3 HEENT Face and sinus: Yes normal facial exam Mouth: moist mucous membranes Neck Neck: Yes normal visual inspection, Yes full ROM and Yes trachea midline Chest Chest palpation & inspection: normal inspection of the chest Resp Effort & Inspection: normal respiratory effort, able to speak in complete sentences and no respiratory distress GI Inspection: Yes normal to inspection Back/Spine/Pelvis Cervical Spine: normal cervical lordosis Thoracic/Lumbar Spine: thoracic and lumbar spine normal to inspection Skin General skin exam: no rashes or lesions noted Neuro General: patient oriented x3, gait normal, tone normal and moves all extremities Extrem General: Yes normal to inspection and Yes capillary refill normal Assessment & Plan Assessment & Plan (1) Erectile dysfunction associated with type 2 diabetes mellitus: Code(s): E11.69 - Type 2 diabetes mellitus with other specified complication; N52.1 - Ere ctile dysfunction due to diseases classified elsewhere Category: Medical (2) Lack of libido: Code(s): F52.0 - Hypoactive sexual desire disorder Category: Medical (3) Low testosterone in male: Code(s): R79.89 - Other specified abnormal findings of blood chemistry Category: Medical Plan Six-month follow-up lab work Orders: Orders Prostate Specific Antigen 5 Months E29.1 - Testicular hypofunction Hematocrit 5 Months E29.1 - Testicular hypofunction Testosterone, Total 5 Months E29.1 - Testicular hypofunction Medications: Refilled testosterone cypionate (Depo-Testosterone) Use 0.5 cc per week. Discard while after use. 100 mg (0.5 mL) IM QWEEK 4 mL 5RF 4 weeks R79.89 - Other specified abnormal findings of blood chemistry tadalafil insurance will not cover, please use low cost pricing 34.44 BIN [employer] [facility] DRAnna [id number] 5 mg PO DAILY 90 tabs 1RF 90 days R79.89 - Other specified abnormal findings of blood chemistry Patient Instructions: This note is constructed using voice recognition software. While every effort has been made to ensure accuracy cloth finishing range tender errors may have been included. Imaging studies, laboratory and physical exam results were discussed and reviewed in detail. No major barriers to patient understanding were identified. An opportunity to ask questions regarding the treatment plan was provided. All questions were answered. The patient expressed understanding and agreement with the above treatment plan. The patient is aware they should contact our office by phone for worsening of their current condition or the appearance of new urologic symptoms. Compliance is encouraged with any medications and followup testing that is ordered. It is a privilege to participate in the urologic care of your patient. If you have any questions or concerns regarding treatment for the above conditions, or other urologic issues, please do not hesitate to contact me. The office telephone contact is [phone]. Sincerely, Dr Min Singh MD, [facility] - Urology Compassionate Specialist Care for the Genitourinary System Coding Level of Care Code Est Pt Level 3 (47351) Complex EM visit Add On G2211 Diagnoses Erectile dysfunction associated with type 2 diabetes mellitus E11.69; N52.1 Lack of libido F52.0 Low testosterone in male R79.89
== END 2025-03-28 09:36 | disposition home or self-care (01) ==
LOC: HO.HUSH 08:45
PROVIDERS: PCP Internal Medicine; Visit Provider Urology
DX: E11.69 Type 2 diabetes mellitus with other specified complication (principal); N52.1 Erectile dysfunction due to diseases classified elsewhere; F52.0 Hypoactive sexual desire disorder; R79.89 Other specified abnormal findings of blood chemistry
CPT/HCPCS: 99213

== ENCOUNTER 2025-04-25 08:46 | Outpatient (REF) | payer BC, SELFPAY | END 2025-04-25 08:47 | disposition home or self-care (01) | LOC: HO.BBR 08:46 | PROVIDERS: PCP Internal Medicine; Visit Provider Internal Medicine | DX: D75.1 Secondary polycythemia (principal) | CPT/HCPCS: 85018; 99195 ==

== ENCOUNTER 2025-04-27 08:43 | Outpatient (AMB) | payer BC, SELFPAY ==
[2025-04-27 08:47] VITALS: BP 108/62; PULSE 87; BMI 34.6
--- NOTE | 2025-04-27 08:47 | MHC.OFFVIS ---
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 Allergies niacin Allergy (Unknown, Verified 04/27/25 08:50) high doses - cause lip swelling, blurred vision Penicillins Adverse Reaction (Severe, Verified 04/27/25 08:50) Diarrhea Medication List - Last Reconciled 04/27/25 by BOGDAN Rogers acetaminophen 1,000 mg (2 x 500 mg) PO Q6H PRN aspirin 81 mg PO DAILY cholecalciferol (vitamin D3) 25 mcg PO DAILY clopidogrel 75 mg PO DAILY isosorbide mononitrate ER 30 mg PO DAILY lidocaine 5% 1 patch topical DAILY metoprolol succinate ER 25 mg PO DAILY needle (disp) 18 G (BD Regular Bevel [place]) As directed - draw up testosterone needle (disp) 23 gauge As directed for testosterone use syringe (disposable) (BD Luer-Nicholas Syringe) Testosterone injection weekly tadalafil 5 mg PO DAILY 90 days testosterone cypionate (Depo-Testosterone) 100 mg (0.5 mL) IM QWEEK 4 weeks valsartan 40 mg PO BID HPI HPI r/s by us- 6 mth f/up: Details: Cory is a 62-year-old male with past medical history of hypertension, hyperlipidemia, diabetes, CAD with prior multivessel PCI, NSTEMI 01/12/2022 with cardiac catheterization showing 100% occluded RCA with clot, left to right collaterals which was managed medically.? An echocardiogram showed EF 25-35% with global hypokinesis, inferior akinetic.? He was started on the appropriate medical management, had a repeat limited echocardiogram showing EF back to 50-55%. He is now here for 6 mo follow up. Today he reports that he has been doing well with no concerning symptoms. He has no chest discomfort at rest or with activity. No concerning shortness of breath, palpitations, lightheadedness, presyncope, syncope, or edema. He takes all his meds as directed. Several months ago he had laser treatment on his prostate. Then months later he had issues with hematuria. No recurrent hematuria in the last 2 months. [facility] Medical History Low back pain Prostate abscess Myocardial infarction Low testosterone in male HLD (hyperlipidemia) HTN (hypertension) CAD (coronary artery disease) Surgical History Hx of inguinal hernia surgery Hx of appendectomy Hx of cardiac cath Stented coronary artery (~05/2019) Family History Mother Cancer Diabetes HTN (hypertension) Father HTN (hypertension) Social History Household Members: Spouse Housing: House Do you presently have visiting nurse or other home services: No Alcohol intake: never Patient Tobacco Use Status: Never used Tobacco Tobacco use type: Cigarette e-Cigarette/Vaping Use: Never Used Second Hand Smoke Exposure: Yes (as a child) service: No Current occupational status: employed Current occupation: [employer] Current occupational exposures/hazards: No Cognitive needs: No Hearing needs: No Vision needs: Yes Review of Systems Const All systems reviewed & are unremarkable except as noted in HPI and below ENT Denies dizziness Card Denies chest pain, Denies chest pain at rest, Denies chest pain with activity, Denies rapid heart rate, Denies pedal edema, Denies edema, Denies leg edema, Denies lightheadedness, Denies palpitations, Denies dyspnea, Denies dyspnea on exertion and Denies orthopnea Resp Denies cough, Denies dyspnea and Denies dyspnea on exertion GI Denies hematochezia and Denies change in stool character Musc Denies abnormal gait, Denies limited range of motion, Denies muscle cramps, Denies muscle weakness, Denies numbness, Denies radiating pain into limb, Denies stiffness and Denies tingling Neuro Denies abnormal gait, Denies dizziness, Denies numbness and Denies tingling Endo Denies palpitations Physical Exam Vital Signs: Last Vital Signs Pulse 87 04/27/25 08:47 BP 108/62 04/27/25 08:47 BMI result Body Mass Index 34.6 Const General: cooperative, healthy appearing, comfortable and no acute distress Orientation/consciousness: patient oriented x3 Neck Neck: Yes normal visual inspection Resp Effort & Inspection: normal respiratory effort Auscultation: clear to auscultation bilaterally, no crackles, no rales, no rhonchi and no wheezes Cardio Rate: regular rate Rhythm: regular rhythm Heart sounds: S1 normal heart sound present, S2 normal heart sound present, no gallops, no murmurs and no rubs Neuro General: patient oriented x3 Extrem General: Yes normal to inspection and No no pedal edema Psych Appearance: grossly normal Mental Status: mental status grossly normal Speech and movement: Normal speech and movement present Office Procedures EKG Details: Today, read by me, Normal sinus rhythm, left axis, inferior infarct, minimal voltage for LVH, rate 87, Qtc 469ms [id number], Complete Assessment & Plan Assessment & Plan (1) CAD (coronary artery disease): Code(s): I25.10 - Atherosclerotic heart disease of [place] coronary artery without angina pectoris Category: Medical Qualifiers: Associated angina: with stable angina Coronary Disease-Associated Artery/Lesion type: [place] artery [place] vs. transplanted heart: [place] heart Qualified Code(s): I25.118 - Atherosclerotic heart disease of [place] coronary artery with other forms of angina pectoris Plan: History of CAD with prior PCI to the RCA and left circumflex. Last cardiac catheterization at time of NSTEMI 12/2021 showing moderate LAD stenosis, RCA 100% occlusion with clot, collaterals left to right. An echocardiogram showed at that time showed EF 25-35%, global hypokinesis, inferior akinetic. He did have a limited echo on 02/06/2022 showing EF 50-55%, inferior lateral hypokinesis, basal inferior akinetic, moderate decrease in the RV systolic function. Condition stable since then. He remains on aspirin indefinitely. 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 He is no longer on isosorbide as he takes tadalafil. He is on valsartan. He is intolerant to statins with myalgias. He is due for updated labs including fasting lipids. Signs and symptoms of angina reviewed. Cardiology follow-up 6 months, sooner if needed. (2) S/P cardiac cath: Comment: 01/13/2022, LAD stenosis 65-70%, IFR 0.88, left circumflex patent stent, RCA 100% occluded with clot, collaterals left to right ,medically managed Code(s): Z98.890 - Other specified postprocedural states Category: Surgical Plan: As above (3) Hx of cardiac cath: Comment: Three vessel disease including an IF are positive LAD, distal RCA severe stenosis and chronic total occlusion of left circumflex with [id number] collaterals, taken back for multi-vessel PCI and underwent PCI of right coronary artery as well as CT0 PCI of left circumflex OM. LAD was managed medically. Last catheterization 06/06/2019 Code(s): Z98.890 - Other specified postprocedural states Category: Surgical Plan: As above (4) HTN (hypertension): Code(s): I10 - Essential (primary) hypertension Category: Medical Qualifiers: Hypertension type: primary hypertension Qualified Code(s): I10 - Essential (primary) hypertension Plan: Blood pressure goal less than 130/80. Blood pressure today 108/62. Continue metoprolol and valsartan. (5) HLD (hyperlipidemia): Code(s): E78.5 - Hyperlipidemia, unspecified Category: Medical Plan: LDL goal less than 70 and patient with known history of CAD. No recent labs for review. He reports statin intolerance. Will check fasting lipids and consider PCSK9 inhibitor. Reviewed with him and he is thinking about it. e (6) Cardiomyopathy: Code(s): I42.9 - Cardiomyopathy, unspecified Category: Medical Qualifiers: Cardiomyopathy type: unspecified Qualified Code(s): I42.9 - Cardiomyopathy, unspecified Plan: EF has improved to low normal on last echocardiogram. He is not fluid overloaded on examination. Currently asymptomatic. Continue metoprolol XL and valsartan for neurohormonal modulation. update echo prior to next visit. Plan Time spent on chart review, documentation, interview and assessment Orders: Orders Complete Blood Count Auto Diff Today I25.118 - Atherosclerotic heart disease of [place] coronary artery with other forms of angina pectoris Comprehensive Met. Panel Today I25.118 - Atherosclerotic heart disease of [place] coronary artery with other forms of angina pectoris Lipid Panel Today I25.118 - Atherosclerotic heart disease of [place] coronary artery with other forms of angina pectoris CA echo transthoracic complete 5 Months I42.9 - Cardiomyopathy, unspecified Coding Level of Care Code Est Pt Level 4 (31315) Complex EM visit Add On G2211 Diagnoses Coronary artery disease of [place] artery of [place] heart with stable angina pectoris I25.118 Associated angina: with stable angina Coronary Disease-Associated Artery/Lesion type: [place] artery [place] vs. transplanted heart: [place] heart S/P cardiac cath Z98.890 Hx of cardiac cath Z98.890 Primary hypertension I10 Hypertension type: primary hypertension HLD (hyperlipidemia) E78.5 Cardiomyopathy, unspecified type I42.9 Cardiomyopathy type: unspecified CPT Codes EKG - CPT: 79473-[id number], Complete ([id number]) Time Spent (min) 28
== END 2025-04-27 09:28 | disposition home or self-care (01) ==
LOC: HO.HCS 08:44
PROVIDERS: PCP Internal Medicine; Visit Provider Nurse Practitioner Family
DX: I25.118 Atherosclerotic heart disease of native coronary artery with other forms of angina pectoris (principal); Z98.890 Other specified postprocedural states; I10 Essential (primary) hypertension; E78.5 Hyperlipidemia, unspecified; I42.9 Cardiomyopathy, unspecified
CPT/HCPCS: 93010; 99214

== ENCOUNTER → 2025-04-27 08:43 | Outpatient (BNVA) | payer BC, SELFPAY | PROVIDERS: PCP Internal Medicine; Visit Provider Nurse Practitioner Family | DX: I25.118 Atherosclerotic heart disease of native coronary artery with other forms of angina pectoris (principal) | CPT/HCPCS: 93005 ==

== ENCOUNTER 2025-06-07 08:45 | Outpatient (REF) | payer BC, SELFPAY | END 2025-06-07 08:46 | disposition home or self-care (01) | LOC: HO.BBR 08:45 | PROVIDERS: PCP Internal Medicine; Visit Provider Internal Medicine | DX: D75.1 Secondary polycythemia (principal) | CPT/HCPCS: 85018; 99195 ==